=== PATIENT | male | born 1980 | race Caucasian/White ===

== ENCOUNTER 2017-03-24 02:37 | Inpatient (IN) | payer MEDICAID, OTHER ==
[~2017-03-24] VITALS: Ht 180.3 cm; Wt 85.4 kg
[2017-03-24] VITALS (10 sets, daily range): BP systolic 90–133; BP diastolic 59–83; PULSE 91–122; RESP 16–19; TEMP 97.8–101.1; O2SAT 94–100
[~2017-03-24 02:37] MED LIST: ARIP1TAB16 PO; BACL20TA PO; CELE40TA PO; CLON1TAB PO; CLOTR1%T TOPICAL; COLA100C5 PO; DOCU100C15 PO; FLEE5TAB PO; GABA400C5 PO; KETOC2%T TOPICAL; MELA3TAB PO; MULTTAB67 PO; NYSTCRE29 TOPICAL; TRAM50TA PO
[2017-03-24] MEDS ORDERED: PIPERACIL-TAZO 3.375 GM PREMIX 50 ML IV ONE (02:45)
[2017-03-24] MEDS ORDERED: KETOROLAC TROMETHAMINE 30 MG/ML (IVP) VIAL IV PUSH ONE (02:45)
[2017-03-24] MEDS ORDERED: SODIUM CHLORIDE 0.9% FLUSH 10 ML FLUSH IVF PRN (02:45)
[2017-03-24] MEDS ORDERED: SODIUM CHLOR 0.9% 1000 ML INJ 1,000 ML IV ONE ×2 (02:45→06:15)
[2017-03-24 03:04] LABS: AUTOMATED NEUTROPHIL # 13.3 TH/MM3 (1.8-7.7); BASOPHIL % 0.2 % (0.0-2.0); EOSINOPHIL % 0.2 % (0.0-4.0); HEMATOCRIT 42.8 % (39.0-51.0); LYMPH % 3.6 % (9.0-44.0); LYMPHOCYTE # 0.5 TH/MM3 (1.0-4.8); MEAN CORPUSCULAR HEMOGLOBIN 27.1 PG (27.0-34.0); MEAN CORPUSCULAR HGB CONC 32.7 % (32.0-36.0); MONO % 4.7 % (0.0-8.0); MONOCYTE # 0.7 TH/MM3 (0-0.9); NEUT % 91.3 % (16.0-70.0); PLATELET COUNT 144 TH/MM3 (150-450); RED BLOOD COUNT 5.16 MIL/MM3 (4.50-5.90); RED CELL DISTRIBUTION WIDTH 13.5 % (11.6-17.2); WHITE BLOOD COUNT 14.5 TH/MM3 (4.0-11.0)
[2017-03-24 03:30] LABS: ALKALINE PHOSPHATASE 135 U/L (45-117); TOTAL BILIRUBIN ADULT 0.5 MG/DL (0.2-1.0); TOTAL PROTEIN 6.6 GM/DL (6.4-8.2)
[2017-03-24 03:31] LABS: ALT (GPT) 25 U/L (12-78); AST (GOT) 28 U/L (15-37); BLOOD UREA NITROGEN 14 MG/DL (7-18); CALCIUM 7.7 MG/DL (8.5-10.1); CHLORIDE 105 MEQ/L (98-107); CREATININE 0.64 MG/DL (0.60-1.30); GLOMERULAR FILTRATION RATE 142 ML/MIN (>89); GLUCOSE,RANDOM 100 MG/DL (74-106); SODIUM (NA) 141 MEQ/L (136-145)
[2017-03-24] MEDS ORDERED: TEMA30CA PO (03:33)
[2017-03-24 05:36] LABS: BACTERIA, URINE MANY /hpf; BILIRUBIN, URINE NEG (NEG); BLOOD, URINE LARGE (NEG); GLUCOSE,URINE NEG (NEG); KETONE, URINE TRACE mg/dL (NEG); MUCUS URINE MANY /lpf (OCC); NITRITE,URINE NEG (NEG); PH, URINE 6.5 (5.0-8.5); URINE COLOR RED (YELLW/STRAW); URINE LEUKOCYTE ESTERASE LARGE (NEG); WHITE BLOOD CELL CLUMPS MANY
--- NOTE | 2017-03-24 06:01 | PD ---
HPI . Fever Chief Complaint: Fever Time Seen by Provider: 02:41 Travel History International Travel<30 days: No Contact w/Intl Traveler<30days: No Traveled to known affect area: No History of Present Illness HPI 36-year-old male history of multiple sclerosis, bedbound, with suprapubic catheter, group home notes patient has fever to 103, and cloudy urine. Upon EMS presentation, patient temperature 100.3, however has tachycardia to 130 bpm , patient has a history of baseline tachycardia as well. Patient reportedly had suprapubic catheter changed yesterday PFSH Past Medical History Narrative Medical Past medical history reviewed Anxiety: Yes Depression: Yes Diminished Hearing: No Genitourinary: Yes (chronic uti's, neurogenic bladder) Musculoskeletal: Yes (paraplegic) Neurologic: Yes (multiple sclerosis with paraplegia) Psychiatric: Yes (DEPRESSION) Influenza Vaccination: No Past Surgical History AICD: No Body Medical Devices: SUPRA PUBIC CATH Genitourinary Surgery: Yes (SUPRA PUB CATH PLACEMENT) Joint Replacement: No Pacemaker: No Other Surgery: Yes (debridement of bilat hip ulcers) Social History Alcohol Use: No Tobacco Use: No Substance Use: No Allergies-Medications (Allergen,Severity, Reaction): Coded Allergies: No Known Allergies (Verified Adverse Reaction, Unknown, 03/24/17) Reported Meds & Prescriptions Reported Meds & Active Scripts Active Reported Temazepam 30 Mg Cap 30 Mg PO HS PRN Multiple Vitamin 1 Tab 1 Tab PO DAILY Tramadol (Tramadol HCl) 50 Mg Tab 50 Mg PO Q8H PRN Nystatin-Triamcinolone 100,000-0.1 Unit/Gm Cream 1 Applic TOPICAL HS Clotrimazole Topical (Clotrimazole) 1% Soln 1 Applic TOPICAL BID Gabapentin 400 Mg Cap 400 Cap PO Q6HR Celexa (Citalopram Hydrobromide) 40 Mg Tab 40 Mg PO DAILY Aripiprazole 2 Mg Tab 2 Mg PO DAILY Bisacodyl EC (Bisacodyl) 5 Mg Tabec 10 Mg PO DAILY Clonazepam 1 Mg Tab 1 Mg PO Q12HR PRN Docusate Sodium 100 Mg Cap 100 Mg PO BID Baclofen 20 Mg Tab 40 Mg PO Q6HR Nizoral Topical Shampoo (Ketoconazole) 2% Sham 1 Applic TOPICAL ONCE Apply to scalp Melatonin 3 Mg Tab 3 Mg PO HS Narrative Medication Allergies and medications reviewed Review of Systems General / Constitutional: Positive: Fever Eyes: No: Visual changes HENT: No: Headaches Cardiovascular: No: Chest Pain or Discomfort Respiratory: No: Shortness of Breath Gastrointestinal: No: Abdominal Pain Genitourinary: Positive: Hematuria, Pelvic Pain Musculoskeletal: No: Pain Skin: No Rash Neurologic: No: Weakness Psychiatric: No: Depression Endocrine: No: Polydipsia Hematologic/Lymphatic: No: Easy Bruising Physical Exam Narrative GENERAL: Awake and alert oriented 3 no acute distress. Patient is febrile SKIN: Warm and dry. Color is normal for patient, waxy appearance to extremities chronically no rashes HEAD: Atraumatic. Normocephalic. EYES: Pupils equal and round. No scleral icterus. No injection or drainage. ENT: No nasal bleeding or discharge. Mucous membranes pink and moist. NECK: Trachea midline. No JVD. CARDIOVASCULAR: Tachycardic regular without obvious murmurs rubs or gallops. RESPIRATORY: No accessory muscle use. Clear to auscultation. Breath sounds equal bilaterally. GASTROINTESTINAL: Abdomen soft, non-tender, nondistended. Hepatic and splenic margins not palpable. Suprapubic catheter in place good granulation tissue at stoma MUSCULOSKELETAL: Extremities without clubbing, cyanosis, or edema. No obvious deformities. NEUROLOGICAL: Awake and conversive, patient is bedbound, with minimal movement secondary to profound MS PSYCHIATRIC: Appropriate mood and affect; insight and judgment normal. Data Data Last Documented VS Vital Signs Date Time Temp Pulse Resp B/P (MAP) Pulse Ox O2 Delivery O2 Flow Rate FiO2 03/24/17 03:15 96 Room Air 03/24/17 02:39 98.5 114 17 108/70 (83) Orders Orders Complete Blood Count With Diff (03/24/17 02:42) Comprehensive Metabolic Panel (03/24/17 02:42) Urinalysis - C+S If Indicated (03/24/17 02:42) Ecg Monitoring (03/24/17 02:42) Iv Access Insert/Monitor (03/24/17 02:42) Sodium Chloride 0.9% Flush (Ns Flush) (03/24/17 02:45) Blood Culture (03/24/17 02:42) Electrocardiogram (03/24/17 ) Ketorolac Inj (Toradol Inj) (03/24/17 02:45) Sodium Chlor 0.9% 1000 Ml Inj (Ns 1000 M (03/24/17 02:45) Piperacil-Tazo 3.375 Gm Premix (Zosyn 3. (03/24/17 02:45) Urine Culture (03/24/17 05:20) Vancomycin Inj (Vancomycin Inj) (03/24/17 06:15) Sodium Chlor 0.9% 1000 Ml Inj (Ns 1000 M (03/24/17 06:15) Labs Laboratory Tests Test 03/24/17 02:50 03/24/17 05:20 White Blood Count 14.5 TH/MM3 Red Blood Count 5.16 MIL/MM3 Hemoglobin 14.0 GM/DL Hematocrit 42.8 % Mean Corpuscular Volume 83.0 FL Mean Corpuscular Hemoglobin 27.1 PG Mean Corpuscular Hemoglobin Concent 32.7 % Red Cell Distribution Width 13.5 % Platelet Count 144 TH/MM3 Mean Platelet Volume 8.0 FL Neutrophils (%) (Auto) 91.3 % Lymphocytes (%) (Auto) 3.6 % Monocytes (%) (Auto) 4.7 % Eosinophils (%) (Auto) 0.2 % Basophils (%) (Auto) 0.2 % Neutrophils # (Auto) 13.3 TH/MM3 Lymphocytes # (Auto) 0.5 TH/MM3 Monocytes # (Auto) 0.7 TH/MM3 Eosinophils # (Auto) 0.0 TH/MM3 Basophils # (Auto) 0.0 TH/MM3 CBC Comment DIFF FINAL Differential Comment Blood Urea Nitrogen 14 MG/DL Creatinine 0.64 MG/DL Random Glucose 100 MG/DL Total Protein 6.6 GM/DL Albumin 3.0 GM/DL Calcium Level 7.7 MG/DL Alkaline Phosphatase 135 U/L Aspartate Amino Transf (AST/SGOT) 28 U/L Alanine Aminotransferase (ALT/SGPT) 25 U/L Total Bilirubin 0.5 MG/DL Sodium Level 141 MEQ/L Potassium Level 3.3 MEQ/L Chloride Level 105 MEQ/L Carbon Dioxide Level 31.0 MEQ/L Anion Gap 5 MEQ/L Estimat Glomerular Filtration Rate 142 ML/MIN Urine Color RED Urine Turbidity CLOUDY Urine pH 6.5 Urine Specific [place] 1.017 Urine Protein 100 mg/dL Urine Glucose (UA) NEG mg/dL Urine Ketones TRACE mg/dL Urine Occult Blood LARGE Urine Nitrite NEG Urine Bilirubin NEG Urine Urobilinogen LESS THAN 2.0 MG/DL Urine Leukocyte Esterase LARGE Urine RBC /hpf Urine WBC /hpf Urine WBC Clumps MANY Urine Bacteria MANY /hpf Urine Mucus MANY /lpf Microscopic Urinalysis Comment CULTURE INDICATED MDM Medical Decision Making Medical Screen Exam Complete: Yes Emergency Medical Condition: Yes Medical Record Reviewed: Yes Differential Diagnosis Multiple sclerosis, urinary tract infection, urosepsis Narrative Course At presentation,. Patient pancultured, started on broad-spectrum antibiotics. Antibiotics given. Antipyretics given as well as IV fluids Patient had poor urinary drainage, what in preparation for potential change of suprapubic catheter, 30 cc of saline was removed from balloon with subsequent return of flow of hematuria. After approximately 300 cc of urine, hematuria began resolving. Case d/w Dr Fermin hospitalist service, admitted Diagnosis Primary Impression: Urinary retention Additional Impression: UTI (lower urinary tract infection) Admitting Information Admitting Physician Requests: Admit Condition: Kristofer Rajput MD Mar 24, 2017 06:01
[2017-03-24] MEDS ORDERED: SODIUM CHLORIDE 0.9% FLUSH 10 ML FLUSH IV FLUSH PRN (06:15)
[2017-03-24] MEDS ORDERED: NALOXONE HCL 0.4 MG/ML AMP IV PUSH PRN ×2 (06:15→10:30)
[2017-03-24] MEDS ORDERED: Vancomycin Consult Pharmacy 1 EA OTHER SCH (06:15)
[2017-03-24] MEDS ORDERED: VANCOMYCIN INJ 200 ML IV ONE (06:15)
[2017-03-24] MEDS: SODIUM CHLOR 0.9% 1000 ML INJ 1,000 ML IV SCH ×2 (07:13→15:31)
[2017-03-24] MEDS: SODIUM CHLORIDE 0.9% FLUSH 10 ML FLUSH IV FLUSH SCH ×2 (08:44→21:00)
[2017-03-24] MEDS: PIPERACIL-TAZO 4.5 GM PREMIX 100 ML IV SCH ×3 (08:44→21:01)
[2017-03-24] MEDS: LACTOBACILLUS ACIDOPHILUS 1 GM PACKET PO SCH ×4 (09:32→21:00)
--- NOTE | 2017-03-24 09:39 | EKG ---
Date Performed: 03/24/2017 Time Performed: 02:59:54 PTAGE: 36 years EKG: SINUS TACHYCARDIA NONSPECIFIC T-WAVE ABNORMALITY ABNORMAL RHYTHM ECG PREVIOUS TRACING : 07/12/2014 04.37 DOCTOR: Ajith Mcgregor Interpretating Date/Time 03/24/2017 09:38:28
[2017-03-24] MEDS ORDERED: SENNOSIDES 8.6 MG TAB PO PRN (10:30)
[2017-03-24] MEDS ORDERED: ONDANSETRON HCL 4 MG/2 ML VIAL IVP PRN (10:30)
[2017-03-24] MEDS ORDERED: BISACODYL 10 MG SUPP RECTAL PRN (10:30)
[2017-03-24] MEDS ORDERED: LACTULOSE SYRUP 20 GM/30 ML CUP PO PRN (10:30)
[2017-03-24] MEDS ORDERED: MAGNESIUM HYDROXIDE SUSP 30 ML CUP PO PRN (10:30)
--- NOTE | 2017-03-24 10:39 | HHI.HP ---
HPI Service [facility] Primary Care Physician Chris William MD Admission Diagnosis UTI, Urinary retention Diagnoses: Chief Complaint: Fever. Travel History International Travel<30 Days: No Contact w/Intl Traveler <30 Da: No Traveled to Known Affected Are: No Sepsis Criteria SIRS Criteria (2 or more): Heart rate over 90, WBC > 21915, < 4000 or > 10% bands Sepsis Criteria (SIRS+source): Infect source susp/known Criteria Outcome: Meets SIRS criteria, Meets sepsis criteria History of Present Illness Ms. Edmonds is a 36 year old male with a history of MS who is bedbound and has chronic suprapubic catheter who presents to the ED from halfway with a high fever of 103F and cloudy urine. Patient reportedly had suprapubic catheter changed yesterday (03/23/2017). Patient is not able to give much info. He denies any chest pain, shortness of breath. Patient On arrival, Tmax 100.2F, heart rate 114, Pulse 17, BP 108 to 133 systolic. WBC 14.5. UA shows significant number of WBCs. Patient was started on Vanc and Zosyn. Review of Systems Except as stated in HPI: all other systems reviewed are Neg Past Family Social History Past Medical History Neurogenic bladder Anxiety/Depression Paraplegia Multiple sclerosis Past Surgical History Bilateral hip ulcer debridement Reported Medications Temazepam 30 Mg Cap 30 Mg PO HS PRN Multiple Vitamin 1 Tab 1 Tab PO DAILY Tramadol (Tramadol HCl) 50 Mg Tab 50 Mg PO Q8H PRN Nystatin-Triamcinolone 100,000-0.1 Unit/Gm Cream 1 Applic TOPICAL HS Clotrimazole Topical (Clotrimazole) 1% Soln 1 Applic TOPICAL BID Gabapentin 400 Mg Cap 400 Cap PO Q6HR Celexa (Citalopram Hydrobromide) 40 Mg Tab 40 Mg PO DAILY Aripiprazole 2 Mg Tab 2 Mg PO DAILY Bisacodyl EC (Bisacodyl) 5 Mg Tabec 10 Mg PO DAILY Clonazepam 1 Mg Tab 1 Mg PO Q12HR PRN Docusate Sodium 100 Mg Cap 100 Mg PO BID Baclofen 20 Mg Tab 40 Mg PO Q6HR Nizoral Topical Shampoo (Ketoconazole) 2% Sham 1 Applic TOPICAL ONCE Apply to scalp Melatonin 3 Mg Tab 3 Mg PO HS Allergies: Coded Allergies: No Known Allergies (Verified Adverse Reaction, Unknown, 03/24/17) Family History Patient reports no family history of heart disease or cancer. Social History Alcohol Use: No Tobacco Use: No Substance Use: No Physical Exam Vital Signs Vital Signs Date Time Temp Pulse Resp B/P (MAP) Pulse Ox O2 Delivery O2 Flow Rate FiO2 03/24/17 10:02 100.2 108 17 133/75 (94) 100 Room Air 03/24/17 09:09 100.0 122 16 133/72 (92) 98 Room Air 03/24/17 07:02 91 16 90/59 (69) 98 Room Air 03/24/17 07:00 98.2 92 17 98/65 (76) 100 Room Air 03/24/17 07:00 17 99 Room Air 03/24/17 07:00 16 03/24/17 03:15 96 Room Air 03/24/17 02:39 98.5 114 17 108/70 (83) Physical Exam GENERAL: This is a well-nourished, well-developed patient, in no apparent distress. Somewhat lethargic SKIN: No rashes, ecchymoses or lesions. Warm and dry. HEAD: Atraumatic. Normocephalic. No temporal or scalp tenderness. EYES: Pupils equal round and reactive. No injection or drainage. ENT: Nose without bleeding, purulent drainage or septal hematoma. Airway patent. NECK: Trachea midline. No lymphadenopathy. Supple, nontender, no meningeal signs. CARDIOVASCULAR: Regular rhythm, tachycardic without murmurs, gallops, or rubs. No JVD. RESPIRATORY: Clear to auscultation. Breath sounds equal bilaterally. No wheezes , rales, or rhonchi. GASTROINTESTINAL: Abdomen soft, non-tender, nondistended. No guarding. MUSCULOSKELETAL: Extremities without clubbing, cyanosis. 1+ lower extremity edema. NEUROLOGICAL: Awake and alert. Cranial nerves II through XII intact. No focal neurological deficits. Normal speech. Laboratory Laboratory Tests Test 03/24/17 02:50 03/24/17 05:20 White Blood Count 14.5 Red Blood Count 5.16 Hemoglobin 14.0 Hematocrit 42.8 Mean Corpuscular Volume 83.0 Mean Corpuscular Hemoglobin 27.1 Mean Corpuscular Hemoglobin Concent 32.7 Red Cell Distribution Width 13.5 Platelet Count 144 Mean Platelet Volume 8.0 Neutrophils (%) (Auto) 91.3 Lymphocytes (%) (Auto) 3.6 Monocytes (%) (Auto) 4.7 Eosinophils (%) (Auto) 0.2 Basophils (%) (Auto) 0.2 Neutrophils # (Auto) 13.3 Lymphocytes # (Auto) 0.5 Monocytes # (Auto) 0.7 Eosinophils # (Auto) 0.0 Basophils # (Auto) 0.0 CBC Comment DIFF FINAL Differential Comment Blood Urea Nitrogen 14 Creatinine 0.64 Random Glucose 100 Total Protein 6.6 Albumin 3.0 Calcium Level 7.7 Alkaline Phosphatase 135 Aspartate Amino Transf (AST/SGOT) 28 Alanine Aminotransferase (ALT/SGPT) 25 Total Bilirubin 0.5 Sodium Level 141 Potassium Level 3.3 Chloride Level 105 Carbon Dioxide Level 31.0 Anion Gap 5 Estimat Glomerular Filtration Rate 142 Urine Color RED Urine Turbidity CLOUDY Urine pH 6.5 Urine Specific [place] 1.017 Urine Protein 100 Urine Glucose (UA) NEG Urine Ketones TRACE Urine Occult Blood LARGE Urine Nitrite NEG Urine Bilirubin NEG Urine Urobilinogen LESS THAN 2.0 Urine Leukocyte Esterase LARGE Urine RBC Urine WBC Urine WBC Clumps MANY Urine Bacteria MANY Urine Mucus MANY Microscopic Urinalysis Comment CULTURE INDICATED Date/Time Source Procedure Growth Status 03/24/17 02:50 Blood Peripheral Aerobic Blood Culture Pending Received 03/24/17 02:50 Blood Peripheral Anaerobic Blood Culture Pending Received 03/24/17 05:20 Urine Clean Catch Urine Culture Pending Received Result Diagram: 03/24/17 0250 03/24/17 0250 Caprini VTE Risk Assessment Caprini VTE Risk Assessment: Mod/High Risk (score >= 2) Caprini Risk Assessment Model Point Value = 1 Point Value = 2 Point Value = 3 Point Value = 5 Age 41-60 Minor surgery BMI > 25 kg/m2 Swollen legs Varicose veins or History of unexplained or recurrent spontaneous Oral contraceptives or hormone replacement Sepsis (< 1 month) Serious lung disease, including pneumonia (< 1 month) Abnormal pulmonary function Acute myocardial infarction Congestive heart failure (< 1 month) History of inflammatory bowel disease Medical patient at bed rest Age 61-74 Arthroscopic surgery Major open surgery (> 45 min) Laparoscopic surgery (> 45 min) Malignancy Confined to bed (> 72 hours) Immobilizing plaster cast Central venous access Age >= 75 History of VTE Family history of VTE Factor V Leiden Prothrombin [id number] Lupus anticoagulant Anticardiolipin antibodies Elevated serum homocysteine Heparin-induced thrombocytopenia Other congenital or acquired thrombophilia Stroke (< 1 month) Elective arthroplasty Hip, pelvis, or leg fracture Acute spinal cord injury (< 1 month) Prophylaxis Regimen Total Risk Factor Score Risk Level Prophylaxis Regimen 0-1 Low Early ambulation 2 Moderate Order ONE of the following: *Sequential Compression Device (SCD) *Heparin 5000 units SQ BID 3-4 Higher Order ONE of the following medications: *Heparin 5000 units SQ TID *Enoxaparin/Lovenox 40 mg SQ daily (WT < 150 kg, CrCl > 30 mL/min) *Enoxaparin/Lovenox 30 mg SQ daily (WT < 150 kg, CrCl > 10-29 mL/min) *Enoxaparin/Lovenox 30 mg SQ BID (WT < 150 kg, CrCl > 30 mL/min) AND/OR *Sequential Compression Device (SCD) 5 or more Highest Order ONE of the following medications: *Heparin 5000 units SQ TID (Preferred with Epidurals) *Enoxaparin/Lovenox 40 mg SQ daily (WT < 150 kg, CrCl > 30 mL/min) *Enoxaparin/Lovenox 30 mg SQ daily (WT < 150 kg, CrCl > 10-29 mL/min) *Enoxaparin/Lovenox 30 mg SQ BID (WT < 150 kg, CrCl > 30 mL/min) AND *Sequential Compression Device (SCD) Assessment and Plan Problem List: (1) Sepsis ICD Code: A41.9 - Sepsis, unspecified organism Status: Acute (2) UTI (lower urinary tract infection) ICD Code: N39.0 - Lower urinary tract infectious disease Status: Acute Assessment and Plan Ms. Edmonds is a 36-year-old male with a history of multiple sclerosis, paraplegia, neurogenic bladder who presents from the halfway due to fever and cloudy urine. Initial workup indicates sepsis with urinary tract infection. - Sepsis (tachycardia, WBC 14.5, suspected infection urinary tract) - Complicated Urinary tract infection - Patient is currently on vancomycin and Zosyn. - If he continues to have persistent fever, we'll consider Carbapenem. - Due to his complicated situation including halfway stay, neurogenic bladder, sepsis - we will consult Infectious disease. - Continue NS 100cc/hour. - Will follow C&S. - Paraplegia - Neurogenic bladder - Anxiety/Depression - Neuropathic pain - Continue home medications. Full code. Loree. Physician Certification 2 Midnight Certification Type: Admission for Inpatient Services Order for Inpatient Services The services are ordered in accordance with Medicare regulations or non- Medicare payer requirements, as applicable. In the case of services not specified as inpatient-only, they are appropriately provided as inpatient services in accordance with the 2-midnight benchmark. Estimated LOS (days): 2 days is the estimated time the patient will need to remain in the hospital, assuming treatment plan goals are met and no additional complications. Post-Hospital Plan: Not yet determined Problem Qualifiers (1) Sepsis: Qualified Codes: A41.9 - Sepsis, unspecified organism Josr Anderson DO Mar 24, 2017 10:39
[2017-03-24] MEDS: ACETAMINOPHEN 325 MG TAB PO PRN ×3 (10:50→21:01)
[2017-03-24] MEDS ORDERED: clonazePAM 1 MG TAB PO PRN (13:30)
[2017-03-24] MEDS: VANCOMYCIN 1,500 MG/NS 500 ML IV SCH ×4 (13:49→22:17)
[2017-03-24] MEDS: ENOXAPARIN SODIUM 40 MG/0.4 ML SYRINGE SQ SCH (14:57)
[2017-03-24] MEDS: GABAPENTIN 400 MG CAP PO SCH (16:41)
[2017-03-24] MEDS: BACLOFEN 10 MG TAB PO SCH ×2 (16:41→23:58)
[2017-03-24] MEDS ORDERED: Tobramycin Consult Pharmacy 1 EA OTHER SCH (17:15)
[2017-03-24] MEDS ORDERED: TOBRAMYCIN IV SCH (18:00)
[2017-03-24] MEDS ORDERED: BACLOFEN 20 MG TAB PO SCH (18:00)
[2017-03-24] MEDS ORDERED: SODIUM CHLORIDE 0.9% IV SCH (18:00)
[2017-03-25] VITALS (7 sets, daily range): BP systolic 112–126; BP diastolic 69–80; PULSE 85–117; RESP 17–20; TEMP 97.8–101; O2SAT 94–96
[2017-03-25] MEDS: PIPERACIL-TAZO 4.5 GM PREMIX 100 ML IV SCH ×4 (02:21→20:52)
[2017-03-25] MEDS: ACETAMINOPHEN 325 MG TAB PO PRN ×2 (02:21→07:52)
[2017-03-25] MEDS: BACLOFEN 10 MG TAB PO SCH ×3 (05:42→16:36)
[2017-03-25] MEDS: VANCOMYCIN 1,500 MG/NS 500 ML IV SCH ×2 (06:16)
[2017-03-25] MEDS: CITALOPRAM HYDROBROMIDE 40 MG TAB PO SCH (07:51)
[2017-03-25] MEDS: ARIPiprazole 2 MG TAB PO SCH (07:52)
[2017-03-25] MEDS: GABAPENTIN 400 MG CAP PO SCH ×3 (07:52→16:41)
[2017-03-25] MEDS: SODIUM CHLORIDE 0.9% FLUSH 10 ML FLUSH IV FLUSH SCH ×2 (07:52→20:52)
[2017-03-25] MEDS: LACTOBACILLUS ACIDOPHILUS 1 GM PACKET PO SCH ×4 (07:53→20:51)
[2017-03-25 08:35] LABS: AUTOMATED NEUTROPHIL # 4.5 TH/MM3 (1.8-7.7); BASOPHIL % 0.1 % (0.0-2.0); EOSINOPHIL % 0.4 % (0.0-4.0); HEMATOCRIT 34.4 % (39.0-51.0); HEMOGLOBIN 11.5 GM/DL (13.0-17.0); LYMPH % 9.4 % (9.0-44.0); LYMPHOCYTE # 0.5 TH/MM3 (1.0-4.8); MEAN CELL VOLUME 82.6 FL (80.0-100.0); MEAN CORPUSCULAR HEMOGLOBIN 27.5 PG (27.0-34.0); MEAN CORPUSCULAR HGB CONC 33.3 % (32.0-36.0); MEAN PLATELET VOLUME 8.2 FL (7.0-11.0); MONOCYTE # 0.3 TH/MM3 (0-0.9); NEUT % 84.1 % (16.0-70.0); PLATELET COUNT 92 TH/MM3 (150-450); RED BLOOD COUNT 4.17 MIL/MM3 (4.50-5.90); RED CELL DISTRIBUTION WIDTH 13.9 % (11.6-17.2); WHITE BLOOD COUNT 5.3 TH/MM3 (4.0-11.0)
[2017-03-25 08:55] LABS: BICARBONATE 24.1 MEQ/L (21.0-32.0); CALCIUM 7.5 MG/DL (8.5-10.1); CREATININE 0.52 MG/DL (0.60-1.30)
[2017-03-25 09:44] LABS: BANDS 18 % (0-6); LYMPHOCYTES 8 % (9-44); METAMYELOCYTES 1 % (0-1); MONOCYTES 3 % (0-8); NEUTROPHIL # MANUAL DIFF 4.7 TH/MM3 (1.8-7.7); POLYS (SEG NEUTROPHILS) 70 % (16-70)
[2017-03-25] MEDS: POTASSIUM CHLOR 20 MEQ PREMIX 100 ML IV SCH ×4 (10:54→20:50)
[2017-03-25 10:55] LABS: MAGNESIUM 1.8 MG/DL (1.5-2.5)
[2017-03-25] MEDS: SODIUM CHLOR 0.9% 1000 ML INJ 1,000 ML IV SCH ×2 (12:34→20:52)
[2017-03-25] MEDS ORDERED: PHARMACY ORDERED LAB ONE (13:45)
[2017-03-25] MEDS: ENOXAPARIN SODIUM 40 MG/0.4 ML SYRINGE SQ SCH (14:26)
--- NOTE | 2017-03-25 15:06 | HHI.PR ---
Subjective Remarks Follow up for complicated UTI, cellulitis.Patient states he could not get much sleep last night. He had fever of 101 this morning. Objective Vitals Vital Signs Date Time Temp Pulse Resp B/P (MAP) Pulse Ox O2 Delivery O2 Flow Rate FiO2 03/25/17 12:00 98.5 85 20 121/80 (94) 96 03/25/17 08:00 101.0 104 19 125/80 (95) 96 03/25/17 04:00 97.9 112 17 112/72 (85) 95 03/25/17 00:00 117 03/25/17 00:00 97.8 114 18 114/69 (84) 94 03/24/17 20:00 101.1 111 19 123/69 (87) 94 03/24/17 20:00 117 03/24/17 17:18 18 03/24/17 16:00 98.1 111 18 112/69 (83) 98 I/O 03/24/17 03/24/17 03/24/17 03/25/17 03/25/17 03/25/17 07:00 15:00 23:00 07:00 15:00 23:00 Intake Total 200 ml 3050 ml 715 ml 1605 ml 835 ml Output Total 200 ml 400 ml 1200 ml 1250 ml Balance 0 ml 2650 ml -485 ml 355 ml 835 ml Intake Oral 200 ml 700 ml 240 ml 120 ml IV Total 2350 ml 715 ml 1365 ml 715 ml Output Urine Total 200 ml 400 ml 1200 ml 1250 ml # Voids 0 0 # Bowel Movements 0 0 1 0 Result Diagram: 03/25/1772003/25/1721 Objective Remarks GENERAL: Alert, NAD. SKIN: Warm and dry. HEAD: Normocephalic. EYES: No scleral icterus. No injection or drainage. NECK: Supple, trachea midline. No JVD or lymphadenopathy. CARDIOVASCULAR: Regular rate and rhythm without murmurs, gallops, or rubs. RESPIRATORY: Breath sounds equal bilaterally. No accessory muscle use. GASTROINTESTINAL: Abdomen soft, non-tender, nondistended. MUSCULOSKELETAL: No cyanosis, or edema. Right lower ext with erythematous lesions with one large bullae, no clear demarcation of erythema. BACK: Nontender without obvious deformity. No CVA tenderness. Procedures None. A/P Problem List: (1) Sepsis ICD Code: A41.9 - Sepsis, unspecified organism Status: Acute (2) UTI (lower urinary tract infection) ICD Code: N39.0 - Lower urinary tract infectious disease Status: Acute (3) Cellulitis of right lower extremity ICD Code: L03.115 - Cellulitis of right lower limb (4) Gram-negative bacteremia ICD Code: R78.81 - Bacteremia (5) Hypokalemia ICD Code: E87.6 - Hypokalemia Assessment and Plan Ms. Edmonds is a 36 year old male with a history of MS who is bedbound and has chronic suprapubic catheter who presents to the ED from [facility] with a high fever of 103F and cloudy urine. - Sepsis (tachycardia, WBC 14.5, suspected infection UTI or soft tissue) - Complicated Urinary tract infection - initially suspected. However, Urine cx shows mixed aleyda. - Gram negative bacteremia - Gram positive bacteremia - Right lower extremity cellulitis - Appreciate ID input. - Discussed with Dr. Horton. We will continue Vancomycin and Zosyn. Vanc trough 15-20. - Will get RLE doppler study. - Patient has been afebrile throughout the day except in the AM. Further work up if fever persists. - Hypokalemia - Mg level is 1.8. - Will replace K+ with IV KCL. - Repeat BMP, CBC in the AM. Will consider replacing Mg with IV Mag sulfate as well. - Paraplegia - Neurogenic bladder - Anxiety/Depression - Neuropathic pain - Continue home medications. Full code. Lovenox for DVT prophylaxis. Problem Qualifiers (1) Sepsis: Qualified Codes: A41.9 - Sepsis, unspecified organism Josr Anderson DO Mar 25, 2017 15:05
--- NOTE | 2017-03-25 16:10 | PD.ID.CON ---
History of Present Illness Service ID Consult Requested By Reason for Consult Evaluation and management of sepsis and gram-negative bacteremia. Primary Care Physician Chris William MD Diagnoses: History of Present Illness Mr. Edmonds is a 36-year-old male with past medical history significant for multiple sclerosis who is bedbound with no movement in lower extremity and very minimal if any upper extremity hand movement. Patient has neurogenic bladder and a chronic suprapubic catheter placed by Dr. Hallman replaced recently on March 23, 2017. Patient now presents to the emergency department from [facility] with a fever of 103 Fahrenheit and cloudy urine. Patient denies any cardiopulmonary symptoms. Patient denies any abdominal pain or any other discomfort. On arrival in the emergency department his Tmax 100.2F, heart rate 114, Pulse 17 , BP 108 to 133 systolic. WBC 14.5. UA shows significant number of WBCs. Patient was started on Vanc and Zosyn. Infectious disease is consulted for evaluation and management of sepsis and gram -negative bacteremia. Review of Systems ROS Limitations: Clinical Condition Constitutional: DENIES: Diaphoretic episodes, Fatigue, Fever, Weight gain, Weight loss, Chills, Dizziness, Change in appetite, Night Sweats Endocrine: DENIES: Heat/cold intolerance, Polydipsia, Polyuria, Polyphagia Eyes: DENIES: Blurred vision, Diplopia, Eye inflammation, Eye pain, Vision loss , Photosensitivity, Double Vision Ears, nose, mouth, throat: DENIES: Tinnitus, Hearing loss, Vertigo, Nasal discharge, Oral lesions, Throat pain, Hoarseness, Ear Pain, Running Nose, Epistaxis, Sinus Pain, Toothache, Odynophagia Respiratory: DENIES: Apneas, Cough, Snoring, Wheezing, Hemoptysis, Sputum production, Shortness of breath Cardiovascular: DENIES: Chest pain, Palpitations, Syncope, Dyspnea on Exertion , PND, Lower Extremity Edema, Orthopnea, Claudication Gastrointestinal: DENIES: Abdominal pain, Black stools, Bloody stools, Constipation, Diarrhea, Nausea, Vomiting, Difficulty Swallowing, Anorexia Genitourinary: DENIES: Sexual dysfunction, Urinary frequency, Urinary incontinence, Urgency, Hematuria, Dysuria, Nocturia, Penile Discharge, Testicular Pain, Testicular Swelling Musculoskeletal: DENIES: Joint pain, Muscle aches, Stiffness, Joint Swelling, Back pain, Neck pain Integumentary: DENIES: Abnormal pigmentation, Nail changes, Pruritus, Rash Hematologic/lymphatic: DENIES: Bruising, Lymphadenopathy Immunologic/allergic: DENIES: Eczema, Urticaria Neurologic: DENIES: Abnormal gait, Headache, Localized weakness, Paresthesias, Seizures, Speech Problems, Tremor, Poor Balance Psychiatric: DENIES: Anxiety, Confusion, Mood changes, Depression, Hallucinations, Agitation, Suicidal Ideation, Homicidal Ideation, Delusions Except as stated in HPI: all other systems reviewed are Neg Past Family Social History Allergies: Coded Allergies: No Known Allergies (Verified Allergy, Unknown, 03/24/17) Past Medical History Neurogenic bladder Anxiety/Depression Paraplegia Multiple sclerosis Past Surgical History Bilateral hip ulcer debridement Suprapubic catheter placement Reported Medications Reported Meds & Active Scripts Active Reported Temazepam 30 Mg Cap 30 Mg PO HS PRN Multiple Vitamin 1 Tab 1 Tab PO DAILY Tramadol (Tramadol HCl) 50 Mg Tab 50 Mg PO Q8H PRN Nystatin-Triamcinolone 100,000-0.1 Unit/Gm Cream 1 Applic TOPICAL HS Clotrimazole Topical (Clotrimazole) 1% Soln 1 Applic TOPICAL BID Gabapentin 400 Mg Cap 400 Cap PO Q6HR Celexa (Citalopram Hydrobromide) 40 Mg Tab 40 Mg PO DAILY Aripiprazole 2 Mg Tab 2 Mg PO DAILY Bisacodyl EC (Bisacodyl) 5 Mg Tabec 10 Mg PO DAILY Clonazepam 1 Mg Tab 1 Mg PO Q12HR PRN Docusate Sodium 100 Mg Cap 100 Mg PO BID Baclofen 20 Mg Tab 40 Mg PO Q6HR Nizoral Topical Shampoo (Ketoconazole) 2% Sham 1 Applic TOPICAL ONCE Apply to scalp Melatonin 3 Mg Tab 3 Mg PO HS Active Ordered Medications Current Medications Medications (Trade) Dose Ordered Sig/Leidy Route Start Time Stop Time Status Last Admin Sodium Chloride 1,000 ml @ 100 mls/hr Q10H IV 03/24/17 06:09 03/25/17 12:34 (NS Flush) 2 ml UNSCH PRN IV FLUSH 03/24/17 06:15 (NS Flush) 2 ml BID IV FLUSH 03/24/17 09:00 03/24/17 08:44 Pharmacy Profile Note 0 ml @ 0 mls/hr UNSCH OTHER 03/24/17 06:15 Piperacillin Sod/ Tazobactam Sod 100 ml @ 200 mls/hr Q6H IV 03/24/17 09:00 03/25/17 15:44 (Lactinex Pkt) 1 gm QID PO 03/24/17 09:00 03/25/17 16:41 (Tylenol) 650 mg Q4H PRN PO 03/24/17 10:30 03/25/17 07:52 (Zofran Inj) 4 mg Q6H PRN IVP 03/24/17 10:30 (Narcan Inj) 0.4 mg UNSCH PRN IV PUSH 03/24/17 10:30 (Milk Of Magnesia Liq) 30 ml Q12H PRN PO 03/24/17 10:30 (Senokot) 17.2 mg Q12H PRN PO 03/24/17 10:30 (Dulcolax Supp) 10 mg DAILY PRN RECTAL 03/24/17 10:30 (Lactulose Liq) 30 ml DAILY PRN PO 03/24/17 10:30 (Abilify) 2 mg DAILY PO 03/25/17 09:00 03/25/17 07:52 (CeleXA) 40 mg DAILY PO 03/25/17 09:00 03/25/17 07:51 (KlonoPIN) 1 mg Q12HR PRN PO 03/24/17 13:30 (Restoril) 30 mg HS PRN PO 03/24/17 21:00 (Neurontin) 400 mg TID PO 03/24/17 18:00 03/25/17 16:41 Vancomycin HCl 1500 mg/Sodium Chloride 515 ml @ 257.5 mls/ hr Q8H IV 03/24/17 14:00 Future Hold 03/25/17 06:16 (Lovenox Inj) 40 mg Q24H SQ 03/24/17 14:00 03/25/17 14:26 (Lioresal) 10 mg Q6HR PO 03/24/17 18:00 03/25/17 16:36 Tobramycin Sulfate 120 mg/ Sodium Chloride 103 ml @ 100 mls/hr Q24H IV 03/24/17 18:00 03/24/17 18:15 Potassium Chloride 100 ml @ 50 mls/hr Q2H IV 03/25/17 16:00 03/25/17 19:59 03/25/17 16:42 Family History Reviewed and noncontributory ID problems Social History Resident of a snf. His father lives locally and visits him. Denies any alcohol smoking or illicit drug use. Bedbound paraplegic able to move his upper extremities to some extent. Physical Exam Vital Signs Vital Signs Date Time Temp Pulse Resp B/P (MAP) Pulse Ox O2 Delivery O2 Flow Rate FiO2 03/25/17 12:00 98.5 85 20 121/80 (94) 96 03/25/17 08:00 101.0 104 19 125/80 (95) 96 03/25/17 04:00 97.9 112 17 112/72 (85) 95 03/25/17 00:00 117 03/25/17 00:00 97.8 114 18 114/69 (84) 94 03/24/17 20:00 101.1 111 19 123/69 (87) 94 03/24/17 20:00 117 03/24/17 17:18 18 Physical Exam GENERAL: This is a well-nourished, well-developed patient, in no apparent distress. SKIN: No rashes, ecchymoses or lesions. Cool and dry. HEAD: Atraumatic. Normocephalic. No temporal or scalp tenderness. EYES: Pupils equal round and reactive. Extraocular motions intact. No scleral icterus. No injection or drainage. ENT: Nose without bleeding, purulent drainage or septal hematoma. Throat without erythema, tonsillar hypertrophy or exudate. Uvula midline. Airway patent. NECK: Trachea midline. No JVD or lymphadenopathy. Supple, nontender, no meningeal signs. CARDIOVASCULAR: Regular rate and rhythm without murmurs, gallops, or rubs. RESPIRATORY: Clear to auscultation. Breath sounds equal bilaterally. No wheezes , rales, or rhonchi. GASTROINTESTINAL: Abdomen soft, non-tender, nondistended. Suprapubic site with erythema minimal. Cath attached to doe. MUSCULOSKELETAL: Right LE with erythema and blisters. RLE appears more swollen than left LE. NEUROLOGICAL: Awake and alert. Paraplegic. Minimal hand movts bilaterally. Psych cooperative IV line sites with no e.o infection. Laboratory Laboratory Tests Test 03/25/17 07:21 03/25/17 12:30 White Blood Count 5.3 Red Blood Count 4.17 Hemoglobin 11.5 Hematocrit 34.4 Mean Corpuscular Volume 82.6 Mean Corpuscular Hemoglobin 27.5 Mean Corpuscular Hemoglobin Concent 33.3 Red Cell Distribution Width 13.9 Platelet Count 92 Mean Platelet Volume 8.2 Neutrophils (%) (Auto) 84.1 Lymphocytes (%) (Auto) 9.4 Monocytes (%) (Auto) 6.0 Eosinophils (%) (Auto) 0.4 Basophils (%) (Auto) 0.1 Neutrophils # (Auto) 4.5 Lymphocytes # (Auto) 0.5 Monocytes # (Auto) 0.3 Eosinophils # (Auto) 0.0 Basophils # (Auto) 0.0 CBC Comment AUTO DIFF Differential Total Cells Counted 100 Neutrophils % (Manual) 70 Band Neutrophils % 18 Lymphocytes % 8 Monocytes % 3 Neutrophils # (Manual) 4.7 Metamyelocytes 1 Differential Comment FINAL DIFF MANUAL Platelet Estimate LOW Platelet Morphology Comment NORMAL Blood Urea Nitrogen 6 Creatinine 0.52 Random Glucose 90 Calcium Level 7.5 Magnesium Level 1.8 Sodium Level 142 Potassium Level 2.7 Chloride Level 109 Carbon Dioxide Level 24.1 Anion Gap 9 Estimat Glomerular Filtration Rate 181 Vancomycin Level Trough 33.3 Date/Time Source Procedure Growth Status 03/25/17 12:20 Blood Peripheral Aerobic Blood Culture Pending Received 03/25/17 12:20 Blood Peripheral Anaerobic Blood Culture Pending Received 03/24/17 05:20 Urine Clean Catch Urine Culture - Final 50-100,000 CFU/ML MIXED ANGEL... Complete Result Diagram: 03/25/17 0721 03/25/17 0721 Imaging None Assessment and Plan Assessment and Plan Sepsis present on admission Source likely UTI and bacteremia Gram-positive bacteremia strep milleri Gram-negative bacteremia likely secondary to UTI. Right lower extremity cellulitis with blisters likely erysipelas. Suprapubic catheter changed on March 23, 2017. Neurogenic bladder Recommendations: Continue Zosyn IV Continue vancomycin IV target trough 15-20(right lower extremity cellulitis) Discontinue tobramycin IV Repeat blood cultures 2 Follow cultures Follow clinically d/w : If fevers persist overnight assess RLE and consider Doppler to r/ o DVT. Also if fevers persist will consider CT A/P to r/o pyelo or hydronephrosis. Consider CXR if fevers persist as patient is bed bound and eating meals in bed ? aspiration PNA. Critical thinking. Helen Horton MD Mar 25, 2017 16:10
[2017-03-26] VITALS (9 sets, daily range): BP systolic 109–123; BP diastolic 73–81; PULSE 85–97; RESP 16–20; TEMP 96.8–100; O2SAT 94–95
[2017-03-26] MEDS: BACLOFEN 10 MG TAB PO SCH ×4 (01:04→22:09)
[2017-03-26] MEDS: TEMAZEPAM 15 MG CAP PO PRN (01:13)
[2017-03-26] MEDS: PIPERACIL-TAZO 4.5 GM PREMIX 100 ML IV SCH ×3 (03:13→15:26)
[2017-03-26 08:49] LABS: AUTOMATED NEUTROPHIL # 3.9 TH/MM3 (1.8-7.7); BASOPHIL % 0.2 % (0.0-2.0); EOSINOPHIL # 0.1 TH/MM3 (0-0.4); HEMATOCRIT 37.4 % (39.0-51.0); HEMOGLOBIN 12.6 GM/DL (13.0-17.0); LYMPH % 20.8 % (9.0-44.0); LYMPHOCYTE # 1.2 TH/MM3 (1.0-4.8); MEAN CELL VOLUME 82.7 FL (80.0-100.0); MEAN CORPUSCULAR HEMOGLOBIN 27.8 PG (27.0-34.0); MEAN CORPUSCULAR HGB CONC 33.7 % (32.0-36.0); MEAN PLATELET VOLUME 8.2 FL (7.0-11.0); MONOCYTE # 0.5 TH/MM3 (0-0.9); PLATELET COUNT 123 TH/MM3 (150-450); RED BLOOD COUNT 4.53 MIL/MM3 (4.50-5.90); RED CELL DISTRIBUTION WIDTH 14.1 % (11.6-17.2); WHITE BLOOD COUNT 5.8 TH/MM3 (4.0-11.0)
[2017-03-26] MEDS: SODIUM CHLOR 0.9% 1000 ML INJ 1,000 ML IV SCH ×2 (08:52→22:15)
[2017-03-26] MEDS: ARIPiprazole 2 MG TAB PO SCH (08:53)
[2017-03-26] MEDS: SODIUM CHLORIDE 0.9% FLUSH 10 ML FLUSH IV FLUSH SCH ×2 (08:53→21:00)
[2017-03-26] MEDS: CITALOPRAM HYDROBROMIDE 40 MG TAB PO SCH (08:53)
[2017-03-26] MEDS: LACTOBACILLUS ACIDOPHILUS 1 GM PACKET PO SCH ×3 (08:54→22:09)
[2017-03-26] MEDS: GABAPENTIN 400 MG CAP PO SCH ×3 (08:54→22:07)
[2017-03-26 09:22] LABS: BICARBONATE 24.1 MEQ/L (21.0-32.0); CREATININE 0.62 MG/DL (0.60-1.30)
[2017-03-26] MEDS ORDERED: VANCOMYCIN INJ 1,250 MG in SODIUM CHLOR 0.9% 250 ML INJ 250 ML IV SCH (11:00)
[2017-03-26] MEDS: ENOXAPARIN SODIUM 40 MG/0.4 ML SYRINGE SQ SCH (15:25)
[2017-03-26] MEDS ORDERED: ASP: Path resistant to other antimicrobials, culture proven PRN (17:15)
[2017-03-26] MEDS ORDERED: MISCELLANEOUS PHARMACY INFORMATION XX PRN (17:15)
[2017-03-26] MEDS ORDERED: MEROPENEM INJ 500 MG in SODIUM CHLORIDE 0.9% INJ 100 ML IV SCH (18:00)
--- NOTE | 2017-03-26 18:03 | HHI.IDPN ---
Subjective Subjective Remarks Mr. Edmonds is a 36-year-old male with past medical history significant for multiple sclerosis who is bedbound with no movement in lower extremity and very minimal if any upper extremity hand movement. Patient has neurogenic bladder and a chronic suprapubic catheter placed by Dr. Hallman replaced recently on March 23, 2017. Patient now presents to the emergency department from [facility] with a fever of 103 Fahrenheit and cloudy urine. Patient denies any cardiopulmonary symptoms. Patient denies any abdominal pain or any other discomfort. On arrival in the emergency department his Tmax 100.2F, heart rate 114, Pulse 17 , BP 108 to 133 systolic. WBC 14.5. UA shows significant number of WBCs. Patient was started on Vanc and Zosyn. Infectious disease is consulted for evaluation and management of sepsis and gram -negative bacteremia. Overnight events reviewed Low grade fevers persist. Bed bound. No rash No diarrhea Antibiotics Zosyn IV Vanco IV Lines Line sites with no e.o infection. Past Medical History Neurogenic bladder Anxiety/Depression Paraplegia Multiple sclerosis Bilateral hip ulcer debridement Suprapubic catheter placement Allergies: Coded Allergies: No Known Allergies (Verified Allergy, Unknown, 03/24/17) Objective . Vital Signs Date Time Temp Pulse Resp B/P (MAP) Pulse Ox O2 Delivery O2 Flow Rate FiO2 03/26/17 16:00 99.2 92 19 109/77 (88) 95 03/26/17 12:00 98.5 93 20 121/78 (92) 95 03/26/17 10:42 85 03/26/17 08:00 98.4 89 20 121/81 (94) 95 03/26/17 04:07 96 03/26/17 04:00 98.8 94 16 115/73 (87) 95 03/26/17 00:17 96 03/26/17 00:00 100.0 97 18 123/78 (93) 94 03/25/17 20:00 98.6 102 18 126/80 (95) 96 03/25/17 19:58 97 03/26/17 03/26/17 03/27/17 15:00 23:00 07:00 Intake Total 240 ml Output Total 600 ml Balance -360 ml Intake Oral 240 ml Output Urine Total 600 ml . Laboratory Tests Test 03/25/17 07:21 03/26/17 07:47 White Blood Count 5.3 TH/MM3 5.8 TH/MM3 Red Blood Count 4.17 MIL/MM3 4.53 MIL/MM3 Hemoglobin 11.5 GM/DL 12.6 GM/DL Hematocrit 34.4 % 37.4 % Mean Corpuscular Volume 82.6 FL 82.7 FL Mean Corpuscular Hemoglobin 27.5 PG 27.8 PG Mean Corpuscular Hemoglobin Concent 33.3 % 33.7 % Red Cell Distribution Width 13.9 % 14.1 % Platelet Count 92 TH/MM3 123 TH/MM3 Mean Platelet Volume 8.2 FL 8.2 FL Neutrophils (%) (Auto) 84.1 % 68.0 % Lymphocytes (%) (Auto) 9.4 % 20.8 % Monocytes (%) (Auto) 6.0 % 9.0 % Eosinophils (%) (Auto) 0.4 % 2.0 % Basophils (%) (Auto) 0.1 % 0.2 % Neutrophils # (Auto) 4.5 TH/MM3 3.9 TH/MM3 Lymphocytes # (Auto) 0.5 TH/MM3 1.2 TH/MM3 Monocytes # (Auto) 0.3 TH/MM3 0.5 TH/MM3 Eosinophils # (Auto) 0.0 TH/MM3 0.1 TH/MM3 Basophils # (Auto) 0.0 TH/MM3 0.0 TH/MM3 CBC Comment AUTO DIFF DIFF FINAL Differential Total Cells Counted 100 Neutrophils % (Manual) 70 % Band Neutrophils % 18 % Lymphocytes % 8 % Monocytes % 3 % Neutrophils # (Manual) 4.7 TH/MM3 Metamyelocytes 1 % Differential Comment FINAL DIFF MANUAL Platelet Estimate LOW Platelet Morphology Comment NORMAL Laboratory Tests Test 03/25/17 07:21 03/26/17 07:41 Blood Urea Nitrogen 6 MG/DL 8 MG/DL Creatinine 0.52 MG/DL 0.62 MG/DL Random Glucose 90 MG/DL 89 MG/DL Calcium Level 7.5 MG/DL 8.0 MG/DL Magnesium Level 1.8 MG/DL Sodium Level 142 MEQ/L 141 MEQ/L Potassium Level 2.7 MEQ/L 3.1 MEQ/L Chloride Level 109 MEQ/L 107 MEQ/L Carbon Dioxide Level 24.1 MEQ/L 24.1 MEQ/L Anion Gap 9 MEQ/L 10 MEQ/L Estimat Glomerular Filtration Rate 181 ML/MIN 148 ML/MIN Microbiology Date/Time Source Procedure Growth Status 03/25/17 12:20 Blood Peripheral Aerobic Blood Culture - Preliminary NO GROWTH IN 1 DAY Resulted 03/25/17 12:20 Blood Peripheral Anaerobic Blood Culture - Preliminary NO GROWTH IN 1 DAY Resulted 03/25/17 12:15 Blood Peripheral Aerobic Blood Culture - Preliminary NO GROWTH IN 1 DAY Resulted 03/25/17 12:15 Blood Peripheral Anaerobic Blood Culture - Preliminary NO GROWTH IN 1 DAY Resulted 03/24/17 02:50 Blood Peripheral Aerobic Blood Culture - Preliminary Strep Anginosus/Milleri Resulted 03/24/17 02:50 Anaerobic Blood Culture - Preliminary Streptococcus Anginosus Group Gram Negative Raphael Resulted 03/24/17 02:40 Blood Peripheral Aerobic Blood Culture - Preliminary NO GROWTH IN 2 DAYS Resulted 03/24/17 02:40 Anaerobic Blood Culture - Preliminary Citrobacter Freundii Proteus Mirabilis Resulted 03/24/17 05:20 Urine Clean Catch Urine Culture - Final 50-100,000 CFU/ML MIXED ANGEL... Complete Imaging None Physical Exam GENERAL: This is a well-nourished, well-developed patient, in no apparent distress. SKIN: No rashes, ecchymoses or lesions. Cool and dry. HEAD: Atraumatic. Normocephalic. No temporal or scalp tenderness. EYES: Pupils equal round and reactive. Extraocular motions intact. No scleral icterus. No injection or drainage. ENT: Nose without bleeding, purulent drainage or septal hematoma. Throat without erythema, tonsillar hypertrophy or exudate. Uvula midline. Airway patent. NECK: Trachea midline. No JVD or lymphadenopathy. Supple, nontender, no meningeal signs. CARDIOVASCULAR: Regular rate and rhythm without murmurs, gallops, or rubs. RESPIRATORY: Clear to auscultation. Breath sounds equal bilaterally. No wheezes , rales, or rhonchi. GASTROINTESTINAL: Abdomen soft, non-tender, nondistended. Suprapubic site with erythema minimal. Cath attached to doe. MUSCULOSKELETAL: Right LE with erythema and blisters. RLE appears more swollen than left LE. NEUROLOGICAL: Awake and alert. Paraplegic. Minimal hand movts bilaterally. Psych cooperative IV line sites with no e.o infection. Assessment & Plan Remarks Sepsis present on admission Source likely UTI and bacteremia Gram-positive bacteremia strep milleri Gram-negative bacteremia likely secondary to UTI. Right lower extremity cellulitis with blisters likely erysipelas. Suprapubic catheter changed on March 23, 2017. Neurogenic bladder Recommendations: DC Zosyn IV DC vancomycin IV ? drug fever Start Meropenem IV (ASP: ESBL on culture prelim) Start Zyvox IV (for RLE cellulitis) Follow cultures Follow clinically If fevers persist despite antibiotics will consider CT A/P to r/o pyelo or hydronephrosis. Consider CXR if fevers persist as patient is bed bound and eating meals in bed ? aspiration PNA. to cover for me. If fevers persist or any new culture information please call her to see patient. Helen Horton MD Mar 26, 2017 18:03
--- NOTE | 2017-03-26 18:37 | RADRPT ---
EXAM DATE/TIME: 03/26/2017 18:20 [facility] COMPARISON: CHEST SINGLE AP, July 12, 2014, 10:16. INDICATIONS : Short of breath. MEDICAL HISTORY : None. SURGICAL HISTORY : None. ENCOUNTER: Subsequent ACUITY: 2 days PAIN SCORE: 0/10 LOCATION: Bilateral chest FINDINGS: A single view of the chest demonstrates the lungs to be symmetrically aerated without evidence of mas s, infiltrate or effusion. The cardiomediastinal contours are unremarkable. Osseous structures are intact. CONCLUSION: No acute disease. Benedicto Andrade Jr., MD on March 26, 2017 at 18:35 Board Certified Radiologist. This report was verified electronically.
--- NOTE | 2017-03-26 19:46 | HHI.PR ---
Subjective Remarks Follow up for complicated UTI, cellulitis, bacteremia. Mr. Edmonds appears to be more alert today. He had intermittent fever. No chest pain, shortness of breath. Objective Vitals Vital Signs Date Time Temp Pulse Resp B/P (MAP) Pulse Ox O2 Delivery O2 Flow Rate FiO2 03/26/17 16:00 99.2 92 19 109/77 (88) 95 03/26/17 12:00 98.5 93 20 121/78 (92) 95 03/26/17 10:42 85 03/26/17 08:00 98.4 89 20 121/81 (94) 95 03/26/17 04:07 96 03/26/17 04:00 98.8 94 16 115/73 (87) 95 03/26/17 00:17 96 03/26/17 00:00 100.0 97 18 123/78 (93) 94 03/25/17 20:00 98.6 102 18 126/80 (95) 96 03/25/17 19:58 97 I/O 03/25/17 03/25/17 03/25/17 03/26/17 03/26/17 03/26/17 07:00 15:00 23:00 07:00 15:00 23:00 Intake Total 1605 ml 835 ml 960 ml 1750 ml 240 ml 1200 ml Output Total 1250 ml 2800 ml 2000 ml 600 ml 2800 ml Balance 355 ml 835 ml -1840 ml -250 ml -360 ml -1600 ml Intake Oral 240 ml 120 ml 760 ml 240 ml 1200 ml IV Total 1365 ml 715 ml 200 ml 1750 ml Output Urine Total 1250 ml 2800 ml 2000 ml 600 ml 2800 ml # Bowel Movements 0 0 0 Result Diagram: 03/26/17 0747 03/26/17 0741 Imaging Last Impressions Chest X-Ray 03/26/17 0000 Signed Impressions: Service Date/Time: Sunday, March 26, 2017 18:20 - CONCLUSION: No acute disease. Benedicto Andrade Jr., MD Objective Remarks GENERAL: Alert, NAD. SKIN: Warm and dry. HEAD: Normocephalic. EYES: No scleral icterus. No injection or drainage. NECK: Supple, trachea midline. No JVD or lymphadenopathy. CARDIOVASCULAR: Regular rate and rhythm without murmurs, gallops, or rubs. RESPIRATORY: Breath sounds equal bilaterally. No accessory muscle use. GASTROINTESTINAL: Abdomen soft, non-tender, nondistended. MUSCULOSKELETAL: No cyanosis, or edema. Right lower ext with erythematous lesions with one large bullae, no clear demarcation of erythema. No increased swelling of RLE compared LLE. BACK: Nontender without obvious deformity. No CVA tenderness. Procedures None. A/P Problem List: (1) Sepsis ICD Code: A41.9 - Sepsis, unspecified organism Status: Acute (2) UTI (lower urinary tract infection) ICD Code: N39.0 - Lower urinary tract infectious disease Status: Acute (3) Cellulitis of right lower extremity ICD Code: L03.115 - Cellulitis of right lower limb (4) Gram-negative bacteremia ICD Code: R78.81 - Bacteremia (5) Hypokalemia ICD Code: E87.6 - Hypokalemia Assessment and Plan Ms. Edmonds is a 36 year old male with a history of MS who is bedbound and has chronic suprapubic catheter who presents to the ED from [facility] with a high fever of 103F and cloudy urine. - Sepsis (tachycardia, WBC 14.5, suspected infection UTI or soft tissue) - Complicated Urinary tract infection - initially suspected. However, Urine cx shows mixed aleyda. - Gram negative bacteremia - Gram positive bacteremia - Right lower extremity cellulitis - Appreciate ID input. - Abx changed from Vanc Zosyn to Linezolid and Meropenem due to RLE cellulitis and ESBL bacteremia. - RLE exam does not indicate DVT. We will hold of ultrasound for now. - CXR negative for any acute finding. - Hypokalemia - Mg level is 1.8. - K+ improved from 2.7 to 3.1 after replacement. - Will give one gram of Mag sulfate and replace with PO KCL - Paraplegia - Neurogenic bladder - Anxiety/Depression - Neuropathic pain - Continue home medications. Full code. Lovenox for DVT prophylaxis. Problem Qualifiers (1) Sepsis: Qualified Codes: A41.9 - Sepsis, unspecified organism Josr Anderson DO Mar 26, 2017 19:46
[2017-03-26] MEDS ORDERED: MAGNESIUM SULFATE 1 GM PREMIX 100 ML IV ONE (20:00)
[2017-03-26] MEDS: MEROPENEM INJ 500 MG in SODIUM CHLORIDE 0.9% INJ 100 ML IV SCH (22:08)
[2017-03-26] MEDS: POTASSIUM CHLORIDE 20 MEQ CONTROLLED RELEASE TAB PO SCH (22:08)
[2017-03-26] MEDS: LINEZOLID 600 MG PREMIX 300 ML IV SCH (22:09)
--- NOTE | 2017-03-26 22:15 | RADRPT ---
EXAM DATE/TIME: 03/26/2017 21:21 [facility] COMPARISON: CHEST SINGLE AP, March 26, 2017, 18:20. US KIDNEY/RENAL/BLADDER, July 13, 2014, 8:19. INDICATIONS : Abnormal lab values. MEDICAL HISTORY : Multiple sclerosis. Paraplegia. Bladder stones. Depression. SURGICAL HISTORY : Suprapub catheter. Debridement of bilateral hip ulcers. Neurogenic bladder. ENCOUNTER: Subsequent ACUITY: 1 day PAIN SCORE: 2/10 LOCATION: Bilateral flank MEASUREMENTS: RIGHT KIDNEY: 11.1 x 4.5 x 5.7 cm LEFT KIDNEY: 10.7 x 4.2 x 6.0 cm FINDINGS: RIGHT KIDNEY: The kidney is echogenic. No hydronephrosis. An echogenic focus with shadowing measuring 8 mm. LEFT KIDNEY: The kidney is echogenic. No hydronephrosis. BLADDER: Bladder is totally decompressed and not seen. CONCLUSION: 1. Sonographic findings suggesting underlying medical renal disease. No obstruction. 2. Decompressed urinary bladder. Benedicto Andrade Jr., MD on March 26, 2017 at 22:11 Board Certified Radiologist. This report was verified electronically.
[2017-03-27] VITALS (10 sets, daily range): BP systolic 119–123; BP diastolic 71–84; PULSE 78–91; RESP 16–20; TEMP 96.2–98.6; O2SAT 94–96
[2017-03-27] MEDS: TEMAZEPAM 15 MG CAP PO PRN (00:48)
[2017-03-27] MEDS: MEROPENEM INJ 500 MG in SODIUM CHLORIDE 0.9% INJ 100 ML IV SCH ×3 (05:13→19:30)
[2017-03-27] MEDS: BACLOFEN 10 MG TAB PO SCH (06:36)
[2017-03-27] MEDS: LINEZOLID 600 MG PREMIX 300 ML IV SCH ×2 (07:43→17:32)
[2017-03-27] MEDS: SODIUM CHLORIDE 0.9% FLUSH 10 ML FLUSH IV FLUSH SCH ×2 (09:00→19:30)
[2017-03-27] MEDS: LACTOBACILLUS ACIDOPHILUS 1 GM PACKET PO SCH ×4 (12:21→19:47)
[2017-03-27] MEDS: GABAPENTIN 400 MG CAP PO SCH ×3 (12:22→17:32)
[2017-03-27] MEDS: POTASSIUM CHLORIDE 20 MEQ CONTROLLED RELEASE TAB PO SCH ×2 (12:22→19:34)
[2017-03-27] MEDS: SODIUM CHLOR 0.9% 1000 ML INJ 1,000 ML IV SCH ×2 (12:23→23:52)
[2017-03-27] MEDS: BACLOFEN 20 MG TAB PO SCH ×3 (12:28→23:52)
[2017-03-27] MEDS: ARIPiprazole 2 MG TAB PO SCH (12:28)
[2017-03-27] MEDS: ENOXAPARIN SODIUM 40 MG/0.4 ML SYRINGE SQ SCH (15:38)
--- NOTE | 2017-03-27 16:40 | HHI.PR ---
Subjective Remarks Follow up for complicated UTI, cellulitis, bacteremia. Patient is doing well. No fever, chills. Wants to get baclofen dosage increased. Tolerating diet well although he does not have much appetite for breakfast. Objective Vitals Vital Signs Date Time Temp Pulse Resp B/P (MAP) Pulse Ox O2 Delivery O2 Flow Rate FiO2 03/27/17 12:00 96.7 80 18 121/78 (92) 95 03/27/17 08:00 98.6 78 16 119/80 (93) 96 03/27/17 04:00 96.2 85 20 121/84 (96) 96 03/27/17 03:40 80 03/27/17 00:13 89 03/27/17 00:00 96.5 87 20 123/84 (97) 94 03/26/17 20:00 96.8 85 20 113/76 (88) 95 I/O 03/26/17 03/26/17 03/26/17 03/27/17 03/27/17 03/27/17 07:00 15:00 23:00 07:00 15:00 23:00 Intake Total 1750 ml 240 ml 2300 ml 740 ml Output Total 2000 ml 600 ml 2800 ml 1650 ml Balance -250 ml -360 ml -500 ml -910 ml Intake Oral 240 ml 1200 ml 240 ml IV Total 1750 ml 1100 ml 500 ml Output Urine Total 2000 ml 600 ml 2800 ml 1650 ml # Bowel Movements 0 1 Result Diagram: 03/26/17 0747 03/26/17 0741 Imaging Last Impressions Renal Ultrasound 03/26/17 0000 Signed Impressions: Service Date/Time: Sunday, March 26, 2017 21:21 - CONCLUSION: 1. Sonographic findings suggesting underlying medical renal disease. No obstruction. 2. Decompressed urinary bladder. Benedicto Andrade Jr., MD Chest X-Ray 03/26/17 0000 Signed Impressions: Service Date/Time: Sunday, March 26, 2017 18:20 - CONCLUSION: No acute disease. Benedicto Andrade Jr., MD Objective Remarks GENERAL: Alert, NAD. SKIN: Warm and dry. HEAD: Normocephalic. EYES: No scleral icterus. No injection or drainage. NECK: Supple, trachea midline. No JVD or lymphadenopathy. CARDIOVASCULAR: Regular rate and rhythm without murmurs, gallops, or rubs. RESPIRATORY: Breath sounds equal bilaterally. No accessory muscle use. GASTROINTESTINAL: Abdomen soft, non-tender, nondistended. MUSCULOSKELETAL: No cyanosis, or edema. Right lower ext with erythematous lesions with one large bullae, no clear demarcation of erythema. Right leg erythema is improved. BACK: Nontender without obvious deformity. No CVA tenderness. Procedures None. A/P Problem List: (1) Sepsis ICD Code: A41.9 - Sepsis, unspecified organism Status: Acute (2) UTI (lower urinary tract infection) ICD Code: N39.0 - Lower urinary tract infectious disease Status: Acute (3) Cellulitis of right lower extremity ICD Code: L03.115 - Cellulitis of right lower limb (4) Gram-negative bacteremia ICD Code: R78.81 - Bacteremia (5) Hypokalemia ICD Code: E87.6 - Hypokalemia Assessment and Plan Ms. Edmonds is a 36 year old male with a history of MS who is bedbound and has chronic suprapubic catheter who presents to the ED from [facility] with a high fever of 103F and cloudy urine. - Sepsis (tachycardia, WBC 14.5, suspected infection UTI or soft tissue) - Complicated Urinary tract infection - initially suspected. However, Urine cx shows mixed aleyda. - Gram negative bacteremia - Gram positive bacteremia - Right lower extremity cellulitis - Appreciate ID input. - Abx changed from Vanc Zosyn to Linezolid and Meropenem due to RLE cellulitis and ESBL bacteremia. - CXR negative for any acute finding. - Hypokalemia - Mg level is 1.8. - K+ improved from 2.7 to 3.1 after replacement. - s/p one gram of Mag sulfate and replace with PO KCL - Paraplegia - Neurogenic bladder - Anxiety/Depression - Neuropathic pain - Continue home medications. - Increase baclofen from 10mg to 20mg QID. Full code. Lovenox for DVT prophylaxis. Problem Qualifiers (1) Sepsis: Qualified Codes: A41.9 - Sepsis, unspecified organism Josr Anderson DO Mar 27, 2017 4:40 pm
[2017-03-27] MEDS ORDERED: PHARMACY ORDERED LAB ONE (22:45)
[2017-03-28 01:00] VITALS: BP 115/73; PULSE 87; RESP 18; TEMP 98.2; O2SAT 93
[2017-03-28 04:00] VITALS: BP 113/75; PULSE 80; PULSE 82; RESP 16; TEMP 97.8; O2SAT 96
[2017-03-28] MEDS: MEROPENEM INJ 500 MG in SODIUM CHLORIDE 0.9% INJ 100 ML IV SCH ×3 (04:04→19:25)
[2017-03-28] MEDS: BACLOFEN 20 MG TAB PO SCH ×3 (05:56→17:51)
[2017-03-28] MEDS: LINEZOLID 600 MG PREMIX 300 ML IV SCH ×2 (05:56→17:52)
[2017-03-28 08:00] VITALS: BP 121/74; PULSE 81; RESP 17; TEMP 95.9; O2SAT 96
[2017-03-28] MEDS: SODIUM CHLORIDE 0.9% FLUSH 10 ML FLUSH IV FLUSH SCH ×2 (08:36→19:25)
[2017-03-28] MEDS: POTASSIUM CHLORIDE 20 MEQ CONTROLLED RELEASE TAB PO SCH ×2 (08:37→19:25)
[2017-03-28] MEDS: LACTOBACILLUS ACIDOPHILUS 1 GM PACKET PO SCH ×4 (08:37→19:26)
[2017-03-28] MEDS: GABAPENTIN 400 MG CAP PO SCH ×4 (08:37→19:26)
[2017-03-28] MEDS: ARIPiprazole 2 MG TAB PO SCH (08:37)
--- NOTE | 2017-03-28 09:18 | HHI.PR ---
Subjective Remarks Follow up for complicated UTI, cellulitis, bacteremia. Patient is currently doing well. Denies any chest pain, shortness of breath, fever or chills. He is requesting to adjust his medications to reflect his home medications. Objective Vitals Vital Signs Date Time Temp Pulse Resp B/P (MAP) Pulse Ox O2 Delivery O2 Flow Rate FiO2 03/28/17 08:00 95.9 81 17 121/74 (90) 96 03/28/17 04:00 80 03/28/17 04:00 97.8 82 16 113/75 (88) 96 03/28/17 01:00 98.2 87 18 115/73 (87) 93 03/27/17 23:45 91 03/27/17 20:00 97.9 84 17 121/77 (92) 94 03/27/17 19:48 78 03/27/17 16:00 97.0 81 17 123/71 (88) 95 03/27/17 12:00 96.7 80 18 121/78 (92) 95 I/O 03/27/17 03/27/17 03/27/17 03/28/17 03/28/17 03/28/17 07:00 15:00 23:00 07:00 15:00 23:00 Intake Total 740 ml 100 ml 760 ml 1220 ml Output Total 1650 ml 2050 ml 1850 ml Balance -910 ml 100 ml -1290 ml -630 ml Intake Oral 240 ml 360 ml 120 ml IV Total 500 ml 100 ml 400 ml 1100 ml Output Urine Total 1650 ml 2050 ml 1850 ml # Bowel Movements 1 0 0 Result Diagram: 03/26/17 0747 03/26/17 0741 Imaging Last Impressions Renal Ultrasound 03/26/17 0000 Signed Impressions: Service Date/Time: Sunday, March 26, 2017 21:21 - CONCLUSION: 1. Sonographic findings suggesting underlying medical renal disease. No obstruction. 2. Decompressed urinary bladder. Benedicto Andrade Jr., MD Chest X-Ray 03/26/17 0000 Signed Impressions: Service Date/Time: Sunday, March 26, 2017 18:20 - CONCLUSION: No acute disease. Benedicto Andrade Jr., MD Objective Remarks GENERAL: Alert, NAD. SKIN: Warm and dry. HEAD: Normocephalic. EYES: No scleral icterus. No injection or drainage. NECK: Supple, trachea midline. No JVD or lymphadenopathy. CARDIOVASCULAR: Regular rate and rhythm without murmurs, gallops, or rubs. RESPIRATORY: Breath sounds equal bilaterally. No accessory muscle use. GASTROINTESTINAL: Abdomen soft, non-tender, nondistended. MUSCULOSKELETAL: No cyanosis, or edema. Right lower ext with erythematous lesions with one large bullae, no clear demarcation of erythema. Right leg erythema is improved. BACK: Nontender without obvious deformity. No CVA tenderness. Procedures None. A/P Problem List: (1) Sepsis ICD Code: A41.9 - Sepsis, unspecified organism Status: Acute (2) UTI (lower urinary tract infection) ICD Code: N39.0 - Lower urinary tract infectious disease Status: Acute (3) Cellulitis of right lower extremity ICD Code: L03.115 - Cellulitis of right lower limb (4) Gram-negative bacteremia ICD Code: R78.81 - Bacteremia (5) Hypokalemia ICD Code: E87.6 - Hypokalemia Assessment and Plan Ms. Edmonds is a 36 year old male with a history of MS who is bedbound and has chronic suprapubic catheter who presents to the ED from [facility] with a high fever of 103F and cloudy urine. - Sepsis (tachycardia, WBC 14.5, suspected infection UTI or soft tissue) - Complicated Urinary tract infection - initially suspected. However, Urine cx shows mixed aleyda. - Polymicrobial bacteremia - Right lower extremity cellulitis - Appreciate ID input. - Abx changed from Vanc Zosyn to Linezolid and Meropenem due to RLE cellulitis and ESBL bacteremia. - CXR negative for any acute finding. - Hypokalemia - Mg level is 1.8. - K+ improved from 2.7 to 3.1 after replacement. - s/p one gram of Mag sulfate and replace with PO KCL - We'll obtain CBC and BMP in the morning. - Paraplegia - Neurogenic bladder - Anxiety/Depression - Neuropathic pain - Continue home medications. - Increased baclofen from 10mg to 20mg QID. - Increase gabapentin 400 mg 3 times a day to 400 mg 4 times a day. Full code. Lovenox for DVT prophylaxis. Problem Qualifiers (1) Sepsis: Qualified Codes: A41.9 - Sepsis, unspecified organism Josr Anderson DO Mar 28, 2017 9:18 am
[2017-03-28] MEDS ORDERED: NALOXONE HCL 0.4 MG/ML AMP IV PUSH PRN (09:30)
[2017-03-28] MEDS ORDERED: BISACODYL 10 MG SUPP RECTAL PRN (09:30)
[2017-03-28] MEDS ORDERED: MAGNESIUM HYDROXIDE SUSP 30 ML CUP PO PRN (09:30)
[2017-03-28] MEDS ORDERED: LACTULOSE SYRUP 20 GM/30 ML CUP PO PRN (09:30)
[2017-03-28] MEDS ORDERED: SENNOSIDES 8.6 MG TAB PO PRN (09:30)
[2017-03-28 12:00] VITALS: BP 128/79; PULSE 83; RESP 18; TEMP 96.3; O2SAT 98
[2017-03-28] MEDS: SODIUM CHLOR 0.9% 1000 ML INJ 1,000 ML IV SCH (12:05)
[2017-03-28 16:00] VITALS: BP 117/74; PULSE 85; RESP 21; TEMP 98.4; O2SAT 96
[2017-03-28] MEDS: ENOXAPARIN SODIUM 40 MG/0.4 ML SYRINGE SQ SCH (17:52)
[2017-03-28] MEDS: DOCUSATE SODIUM 100 MG CAP PO SCH (19:25)
[2017-03-28 20:00] VITALS: BP 117/74; PULSE 84; PULSE 87; RESP 18; TEMP 97.9; O2SAT 93
[2017-03-29] VITALS: BP 116/76; PULSE 82; PULSE 87; RESP 18; TEMP 98.7; O2SAT 94
[2017-03-29] MEDS: BACLOFEN 20 MG TAB PO SCH ×4 (00:09→17:46)
[2017-03-29] MEDS: SODIUM CHLOR 0.9% 1000 ML INJ 1,000 ML IV SCH ×2 (03:08→15:30)
[2017-03-29] MEDS: MEROPENEM INJ 500 MG in SODIUM CHLORIDE 0.9% INJ 100 ML IV SCH (03:08)
[2017-03-29 04:00] VITALS: BP 120/77; PULSE 83; PULSE 84; RESP 17; TEMP 98.9; O2SAT 96
[2017-03-29] MEDS: LINEZOLID 600 MG PREMIX 300 ML IV SCH (05:13)
[2017-03-29 08:00] VITALS: BP 116/59; PULSE 80; RESP 18; TEMP 98.1; O2SAT 93
[2017-03-29 08:18] LABS: AUTOMATED NEUTROPHIL # 3.3 TH/MM3 (1.8-7.7); BASOPHIL % 0.3 % (0.0-2.0); EOSINOPHIL # 0.3 TH/MM3 (0-0.4); EOSINOPHIL % 4.1 % (0.0-4.0); HEMATOCRIT 37.6 % (39.0-51.0); HEMOGLOBIN 12.2 GM/DL (13.0-17.0); LYMPH % 35.9 % (9.0-44.0); LYMPHOCYTE # 2.4 TH/MM3 (1.0-4.8); MEAN CELL VOLUME 82.7 FL (80.0-100.0); MEAN CORPUSCULAR HGB CONC 32.6 % (32.0-36.0); MONOCYTE # 0.8 TH/MM3 (0-0.9); NEUT % 48.7 % (16.0-70.0); PLATELET COUNT 155 TH/MM3 (150-450); RED BLOOD COUNT 4.54 MIL/MM3 (4.50-5.90); RED CELL DISTRIBUTION WIDTH 13.9 % (11.6-17.2); WHITE BLOOD COUNT 6.8 TH/MM3 (4.0-11.0)
[2017-03-29 08:56] LABS: CALCIUM 8.2 MG/DL (8.5-10.1); CREATININE 0.55 MG/DL (0.60-1.30)
[2017-03-29 08:57] LABS: BICARBONATE 28.7 MEQ/L (21.0-32.0)
[2017-03-29] MEDS: LACTOBACILLUS ACIDOPHILUS 1 GM PACKET PO SCH ×4 (09:00→20:35)
[2017-03-29] MEDS: ARIPiprazole 2 MG TAB PO SCH (09:24)
[2017-03-29] MEDS: GABAPENTIN 400 MG CAP PO SCH ×4 (09:24→20:35)
[2017-03-29] MEDS: POTASSIUM CHLORIDE 20 MEQ CONTROLLED RELEASE TAB PO SCH (09:25)
[2017-03-29] MEDS: DOCUSATE SODIUM 100 MG CAP PO SCH ×2 (09:25→20:35)
[2017-03-29] MEDS: SODIUM CHLORIDE 0.9% FLUSH 10 ML FLUSH IV FLUSH SCH ×2 (09:26→20:35)
[2017-03-29] MEDS ORDERED: EPIN1INJ21 IV PUSH (11:42)
[2017-03-29] MEDS ORDERED: SOLU250I IV PUSH (11:42)
[2017-03-29] MEDS ORDERED: EPIN1INJ21 SQ (11:42)
[2017-03-29] MEDS ORDERED: INVA1INJ IV (11:42)
[2017-03-29] MEDS ORDERED: ZYVO600T PO (11:42)
--- NOTE | 2017-03-29 11:49 | HHI.IDPN ---
Subjective Subjective Remarks Mr. Edmonds is a 36-year-old male with past medical history significant for multiple sclerosis who is bedbound with no movement in lower extremity and very minimal if any upper extremity hand movement. Patient has neurogenic bladder and a chronic suprapubic catheter placed by Dr. Hallman replaced recently on March 23, 2017. Patient now presents to the emergency department [facility] with a fever of 103 Fahrenheit and cloudy urine. Patient denies any cardiopulmonary symptoms. Patient denies any abdominal pain or any other discomfort. On arrival in the emergency department his Tmax 100.2F, heart rate 114, Pulse 17 , BP 108 to 133 systolic. WBC 14.5. UA shows significant number of WBCs. Patient was started on Vanc and Zosyn. Infectious disease is consulted for evaluation and management of sepsis and gram -negative bacteremia. Overnight events reviewed Bed bound. No fevers No rash No diarrhea Antibiotics Meropenem IV and Zyvox IV Lines Line sites with no e.o infection. Past Medical History Neurogenic bladder Anxiety/Depression Paraplegia Multiple sclerosis Bilateral hip ulcer debridement Suprapubic catheter placement Allergies: Coded Allergies: No Known Allergies (Verified Allergy, Unknown, 03/24/17) Objective . Vital Signs Date Time Temp Pulse Resp B/P (MAP) Pulse Ox O2 Delivery O2 Flow Rate FiO2 03/29/17 08:00 98.1 80 18 116/59 (78) 93 03/29/17 04:00 83 03/29/17 04:00 98.9 84 17 120/77 (91) 96 03/29/17 00:00 87 03/29/17 00:00 98.7 82 18 116/76 (89) 94 03/28/17 20:00 97.9 84 18 117/74 (88) 93 03/28/17 20:00 87 03/28/17 16:00 98.4 85 21 117/74 (88) 96 03/28/17 12:00 96.3 83 18 128/79 (95) 98 03/29/17 03/29/17 03/30/17 15:00 23:00 07:00 Output Total 550 ml Balance -550 ml Output Urine Total 550 ml . d/w Micro: cannot rule out ESBL recommend treating as ESBL. Microbiology Date/Time Source Procedure Growth Status 03/25/17 12:20 Blood Peripheral Aerobic Blood Culture - Preliminary NO GROWTH IN 4 DAYS Resulted 03/25/17 12:20 Blood Peripheral Anaerobic Blood Culture - Preliminary NO GROWTH IN 4 DAYS Resulted 03/24/17 05:20 Urine Clean Catch Urine Culture - Final 50-100,000 CFU/ML MIXED ANGEL... Complete Laboratory Tests Test 03/29/17 06:27 White Blood Count 6.8 TH/MM3 Red Blood Count 4.54 MIL/MM3 Hemoglobin 12.2 GM/DL Hematocrit 37.6 % Mean Corpuscular Volume 82.7 FL Mean Corpuscular Hemoglobin 27.0 PG Mean Corpuscular Hemoglobin Concent 32.6 % Red Cell Distribution Width 13.9 % Platelet Count 155 TH/MM3 Mean Platelet Volume 8.0 FL Neutrophils (%) (Auto) 48.7 % Lymphocytes (%) (Auto) 35.9 % Monocytes (%) (Auto) 11.0 % Eosinophils (%) (Auto) 4.1 % Basophils (%) (Auto) 0.3 % Neutrophils # (Auto) 3.3 TH/MM3 Lymphocytes # (Auto) 2.4 TH/MM3 Monocytes # (Auto) 0.8 TH/MM3 Eosinophils # (Auto) 0.3 TH/MM3 Basophils # (Auto) 0.0 TH/MM3 CBC Comment DIFF FINAL Differential Comment Laboratory Tests Test 03/29/17 06:27 Blood Urea Nitrogen 5 MG/DL Creatinine 0.55 MG/DL Random Glucose 109 MG/DL Calcium Level 8.2 MG/DL Sodium Level 143 MEQ/L Potassium Level 3.3 MEQ/L Chloride Level 108 MEQ/L Carbon Dioxide Level 28.7 MEQ/L Anion Gap 6 MEQ/L Estimat Glomerular Filtration Rate 170 ML/MIN Imaging None Physical Exam GENERAL: This is a well-nourished, well-developed patient, in no apparent distress. SKIN: No rashes, ecchymoses or lesions. Cool and dry. HEAD: Atraumatic. Normocephalic. No temporal or scalp tenderness. EYES: Pupils equal round and reactive. Extraocular motions intact. No scleral icterus. No injection or drainage. ENT: Nose without bleeding, purulent drainage or septal hematoma. Throat without erythema, tonsillar hypertrophy or exudate. Uvula midline. Airway patent. NECK: Trachea midline. No JVD or lymphadenopathy. Supple, nontender, no meningeal signs. CARDIOVASCULAR: Regular rate and rhythm without murmurs, gallops, or rubs. RESPIRATORY: Clear to auscultation. Breath sounds equal bilaterally. No wheezes , rales, or rhonchi. GASTROINTESTINAL: Abdomen soft, non-tender, nondistended. Suprapubic site with erythema minimal. Cath attached to doe. MUSCULOSKELETAL: Right LE with erythema and blisters. RLE appears more swollen than left LE. NEUROLOGICAL: Awake and alert. Paraplegic. Minimal hand movts bilaterally. Psych cooperative IV line sites with no e.o infection. Assessment & Plan Remarks Sepsis present on admission Source likely UTI and bacteremia Strep Milleri bacteremia Proteus mirabilis and Morganella bacteremia: transient likely from recent procedures. Right lower extremity cellulitis with blisters likely erysipelas. Suprapubic catheter changed on March 23, 2017. Neurogenic bladder Recommendations: DC Meropenem IV Start Ertapenem IV (ASP: ESBL on culture per [facility] treat as ESBL due to resistance pattern) Continue Zyvox change to oral (for RLE cellulitis) Follow cultures Follow clinically US negative CXR negative. d.w Dr.Ahmad no [facility]: will need IV ertapenem stop date(04/09/17) and Zyvox oral 4 more days. d.w patient above plan Midline order placed. Infusion orders in chart. Will sign off please call back if any change in clinical condition or questions or any problems with above discharge plan. Helen Horton MD Mar 29, 2017 11:49
--- NOTE | 2017-03-29 11:54 | HHI.FF ---
Infusion Therapy Location of Infusion Therapy: [facility] Infusion Therapy Order Patient Information Appointment Date: Mar 29, 2017 Patient Weight 85.4 kg Diagnosis: Diagnosis ESBL Proteus bacteremia Morganella bacteremia Strep bacteremia. Coded Allergies: No Known Allergies (Verified Allergy, Unknown, 03/24/17) Administer Medication Ertapenem 1 gram IV q 24 hours Start Treatment: Mar 29, 2017 Stop Treatment: Apr 10, 2017 Additional Information Additional Medications Zyvox 600 mg po q12 hrs (stop date: 04/02/2017) Venous access: Other (Midline) Additional Instructions [x] Peripheral flush and dressing changes per protocol [x] Implanted port and central multicut line operator: * Implanted port: 10 ml Normal Saline followed by 5 ml Heparin 100 units/ml Heparin flush after each use and monthly to maintain. [] May leave port accessed during therapy. [] May leave peripheral site accessed for duration of therapy. [x] If patient has SOB or respiratory distress, check oxygen saturation. If less than 90% or clinical signs of respiratory distress, administer oxygen at 2 L/min. via nasal cannula and notify physician. [x] Anaphylaxis/Reaction orders: * Stop infusion. * Keep IV line open with saline flush. * Notify physician. * Monitor vital signs every 15 minutes until symptoms resolve. * Check Oxygen saturation; Oxygen at 2 L/min. via nasal cannula if less than 90% or clinical signs of respiratory distress. * Administer diphenhydramine (Benadryl) 25 mg IV STAT, (unless patient has received as pre-med). May repeat once, if necessary. * Solu-Cortef 250 mg IVP over 30-60 seconds, use 100 mg vials for each dissolution. * Epinephrine (1mg/1 ml) 0.3 mg subcutaneously or IVP now with any signs of respiratory distress. * Check with physician for new additional pre-med orders if patient is re- challenged or re-treated. [x] May remove PICC line when treatment complete, after confirming with Physician. [x] If the patient is admitted to the hospital, the ED, or transferred via [facility] , complete transfer form including medication reconciliation order sheet. Laboratory Tests Weekly Labs: CBC w/diff, Creatinine, CRP, LFT's (Hepatic function test) Additional Information Please draw weekly labs, Call with abnormals, change in clinical condition or problems to: or covering ID Physician Follow up appt: Follow up with PCP Follow up with other MDs as planned. Counseling: Counseled about medication side effects Helen Horton MD Mar 29, 2017 11:54
[2017-03-29 12:00] VITALS: BP 118/75; PULSE 78; RESP 16; TEMP 95.7; O2SAT 95
[2017-03-29] MEDS ORDERED: ERTAPENEM SODIUM 1000 MG VIAL IV SCH (14:00)
[2017-03-29] MEDS: ENOXAPARIN SODIUM 40 MG/0.4 ML SYRINGE SQ SCH (14:00)
[2017-03-29] MEDS ORDERED: ERTAPENEM 1,000 MG/NS 100 ML IV SCH ×2 (14:00)
[2017-03-29] MEDS ORDERED: BACL20TA PO (14:17)
[2017-03-29] MEDS ORDERED: CLON1TAB PO (14:17)
[2017-03-29] MEDS ORDERED: POTA1TAB4 PO (14:31)
--- NOTE | 2017-03-29 14:32 | HHI.PR ---
Subjective Remarks Follow up for suspected complicated UTI, cellulitis, bacteremia. Patient is doing well. No fever, chills. Repeat blood cultures negative. Objective Vitals Vital Signs Date Time Temp Pulse Resp B/P (MAP) Pulse Ox O2 Delivery O2 Flow Rate FiO2 03/29/17 08:00 98.1 80 18 116/59 (78) 93 03/29/17 04:00 83 03/29/17 04:00 98.9 84 17 120/77 (91) 96 03/29/17 00:00 87 03/29/17 00:00 98.7 82 18 116/76 (89) 94 03/28/17 20:00 97.9 84 18 117/74 (88) 93 03/28/17 20:00 87 03/28/17 16:00 98.4 85 21 117/74 (88) 96 I/O 03/28/17 03/28/17 03/28/17 03/29/17 03/29/17 03/29/17 07:00 15:00 23:00 07:00 15:00 23:00 Intake Total 1220 ml 1100 ml 1090 ml Output Total 1850 ml 1900 ml 1400 ml 550 ml Balance -630 ml 1100 ml -810 ml -1400 ml -550 ml Intake Oral 120 ml 690 ml IV Total 1100 ml 1100 ml 400 ml Output Urine Total 1850 ml 1900 ml 1400 ml 550 ml # Bowel Movements 0 0 1 Result Diagram: 03/29/17 0627 03/29/17 0627 Imaging Last Impressions Renal Ultrasound 03/26/17 0000 Signed Impressions: Service Date/Time: Sunday, March 26, 2017 21:21 - CONCLUSION: 1. Sonographic findings suggesting underlying medical renal disease. No obstruction. 2. Decompressed urinary bladder. Benedicto Andrade Jr., MD Chest X-Ray 03/26/17 0000 Signed Impressions: Service Date/Time: Sunday, March 26, 2017 18:20 - CONCLUSION: No acute disease. Benedicto Andrade Jr., MD Objective Remarks GENERAL: Alert, NAD. SKIN: Warm and dry. HEAD: Normocephalic. EYES: No scleral icterus. No injection or drainage. NECK: Supple, trachea midline. No JVD or lymphadenopathy. CARDIOVASCULAR: Regular rate and rhythm without murmurs, gallops, or rubs. RESPIRATORY: Breath sounds equal bilaterally. No accessory muscle use. GASTROINTESTINAL: Abdomen soft, non-tender, nondistended. MUSCULOSKELETAL: No cyanosis, or edema. Right lower ext with erythematous lesions with one large bullae, no clear demarcation of erythema. Right leg erythema is improved. BACK: Nontender without obvious deformity. No CVA tenderness. Procedures None. A/P Problem List: (1) Sepsis ICD Code: A41.9 - Sepsis, unspecified organism Status: Acute (2) UTI (lower urinary tract infection) ICD Code: N39.0 - Lower urinary tract infectious disease Status: Acute (3) Cellulitis of right lower extremity ICD Code: L03.115 - Cellulitis of right lower limb (4) Gram-negative bacteremia ICD Code: R78.81 - Bacteremia (5) Hypokalemia ICD Code: E87.6 - Hypokalemia Assessment and Plan Ms. Edmonds is a 36 year old male with a history of MS who is bedbound and has chronic suprapubic catheter who [facility] with a high fever of 103F and cloudy urine. - Sepsis (tachycardia, WBC 14.5, suspected infection UTI or soft tissue) - Complicated Urinary tract infection - initially suspected. However, Urine cx shows mixed aleyda. - Polymicrobial bacteremia - Right lower extremity cellulitis - Appreciate ID input. - Abx changed from Vanc Zosyn to Linezolid and Meropenem due to RLE cellulitis and ESBL bacteremia. - CXR negative for any acute finding. - On discharge ID recommends Ertapenem 1g IV Q24hrs until 04/10/2017 and Zyvox PO Q12hrs until 04/02/2017. - Hypokalemia - Mg level is 1.8. - K+ improved from 2.7 to 3.1 after replacement. - s/p one gram of Mag sulfate and replace with PO KCL - K+ is still slightly low. 3.3. Will continue PO KCL for 2-3 days. - Paraplegia - Neurogenic bladder - Anxiety/Depression - Neuropathic pain - Continue home medications. - Increased baclofen from 10mg to 20mg QID. - Increase gabapentin 400 mg 3 times a day to 400 mg 4 times a day. Full code. Lovenox for DVT prophylaxis. Problem Qualifiers (1) Sepsis: Qualified Codes: A41.9 - Sepsis, unspecified organism Josr Anderson DO Mar 29, 2017 2:32 pm
[2017-03-29 16:00] VITALS: BP 141/83; PULSE 79; RESP 18; TEMP 97.4; O2SAT 96
[2017-03-29] MEDS ORDERED: LINEZOLID 600 MG TAB PO SCH (21:00)
--- NOTE | 2017-03-29 22:36 | HHI.DS ---
Discharge Summary Admission Date Mar 24, 2017 at 06:12 Discharge Date: Mar 29, 2017 Admitting Diagnosis UTI, Urinary retention (1) Sepsis ICD Code: A41.9 - Sepsis, unspecified organism Status: Acute (2) UTI (lower urinary tract infection) ICD Code: N39.0 - Lower urinary tract infectious disease Status: Acute (3) Cellulitis of right lower extremity ICD Code: L03.115 - Cellulitis of right lower limb (4) Gram-negative bacteremia ICD Code: R78.81 - Bacteremia (5) Hypokalemia ICD Code: E87.6 - Hypokalemia Procedures None. Brief History - From Admission Ms. Edmonds is a 36 year old male with a history of MS who is bedbound and has chronic suprapubic catheter who presents to the ED from group home with a high fever of 103F and cloudy urine. Patient reportedly had suprapubic catheter changed yesterday (03/23/2017). Patient is not able to give much info. He denies any chest pain, shortness of breath. Patient On arrival, Tmax 100.2F, heart rate 114, Pulse 17, BP 108 to 133 systolic. WBC 14.5. UA shows significant number of WBCs. Patient was started on Vanc and Zosyn. CBC/BMP: 03/29/17 0627 03/29/17 0627 Significant Findings Laboratory Tests Test 03/29/17 06:27 Hemoglobin 12.2 GM/DL (13.0-17.0) Hematocrit 37.6 % (39.0-51.0) Monocytes (%) (Auto) 11.0 % (0.0-8.0) Eosinophils (%) (Auto) 4.1 % (0.0-4.0) Blood Urea Nitrogen 5 MG/DL (7-18) Creatinine 0.55 MG/DL (0.60-1.30) Random Glucose 109 MG/DL (74-106) Calcium Level 8.2 MG/DL (8.5-10.1) Potassium Level 3.3 MEQ/L (3.5-5.1) Chloride Level 108 MEQ/L (98-107) Imaging Last Impressions Renal Ultrasound 03/26/17 0000 Signed Impressions: Service Date/Time: Sunday, March 26, 2017 21:21 - CONCLUSION: 1. Sonographic findings suggesting underlying medical renal disease. No obstruction. 2. Decompressed urinary bladder. Benedicto Andrade Jr., MD Chest X-Ray 03/26/17 0000 Signed Impressions: Service Date/Time: Sunday, March 26, 2017 18:20 - CONCLUSION: No acute disease. Benedicto Andrade Jr., MD PE at Discharge GENERAL: Alert, NAD. SKIN: Warm and dry. HEAD: Normocephalic. EYES: No scleral icterus. No injection or drainage. NECK: Supple, trachea midline. No JVD or lymphadenopathy. CARDIOVASCULAR: Regular rate and rhythm without murmurs, gallops, or rubs. RESPIRATORY: Breath sounds equal bilaterally. No accessory muscle use. GASTROINTESTINAL: Abdomen soft, non-tender, nondistended. MUSCULOSKELETAL: No cyanosis, or edema. Right lower ext with erythematous lesions with one large bullae, no clear demarcation of erythema. Right leg erythema is improved. BACK: Nontender without obvious deformity. No CVA tenderness. Pt update on day of discharge Patient is doing well. No fever, chills. Hospital Course Ms. Edmonds is a 36 year old male with a history of MS who is bedbound and has chronic suprapubic catheter who presents to the ED from group home with a high fever of 103F and cloudy urine. - Sepsis (tachycardia, WBC 14.5, suspected infection UTI or soft tissue) - Complicated Urinary tract infection - initially suspected. However, Urine cx shows mixed aleyda. - Polymicrobial bacteremia - Right lower extremity cellulitis - Appreciate ID input. - Abx changed from Vanc Zosyn to Linezolid and Meropenem due to RLE cellulitis and ESBL bacteremia. - CXR negative for any acute finding. - On discharge ID recommends Ertapenem 1g IV Q24hrs until 04/10/2017 and Zyvox PO Q12hrs until 04/02/2017. - Hypokalemia - Mg level is 1.8. - K+ improved from 2.7 to 3.1 after replacement. - s/p one gram of Mag sulfate and replace with PO KCL - K+ is still slightly low. 3.3. Will continue PO KCL for 2-3 days. - Paraplegia - Neurogenic bladder - Anxiety/Depression - Neuropathic pain - Continue home medications. - Increased baclofen from 10mg to 20mg QID. - Increase gabapentin 400 mg 3 times a day to 400 mg 4 times a day. Full code. Lovenox for DVT prophylaxis. Pt Condition on Discharge: Good Discharge Disposition: Discharge to SNF Discharge Time: > 30 minutes Discharge Instructions DIET: Follow Instructions for: As Tolerated, No Restrictions Activities you can perform: Regular-No Restrictions New Medications: Epinephrine Inj (Epinephrine Inj) 1 Mg/Ml (1 Ml) Inj 0.3 MG IV PUSH ONCE PRN for ALLERGIC REACTION, #1 VIAL Epinephrine Inj (Epinephrine Inj) 1 Mg/Ml (1 Ml) Inj 0.3 MG SQ ONCE PRN for ALLERGIC REACTION, #1 VIAL Give with any signs of respiratory distress. Ertapenem Inj (Invanz Inj) 1 Gm Addvial 1 GM IV Q24H for Infection for 11 Days, INJECTION 0 Refills ADMINISTER IN 100ML NS Hydrocortisone Inj (Solu-Cortef Inj) 250 Mg/2 Ml Inj 250 MG IV PUSH ONCE PRN for ALLERGIC REACTION, #1 VIAL 0 Refills Give over 30-60 seconds. Linezolid (Zyvox) 600 Mg Tab 600 MG PO Q12H for Infection for 4 Days, #8 TAB 0 Refills Potassium Chloride ER (K-Tab) 20 Meq Tab 20 MEQ PO BID for Electrolyte Replacement, #4 TAB 0 Refills Baclofen (Baclofen) 20 Mg Tab 20 MG PO Q6HR for muscle spasm, #30 TAB Continued Medications: Aripiprazole (Aripiprazole) 2 Mg Tab 2 MG PO DAILY, TAB [address] (Bisacodyl EC) 5 Mg Tabec 10 MG PO DAILY for Constipation, TAB 0 Refills Clonazepam (Clonazepam) 1 Mg Tab 1 MG PO Q12HR PRN for ANXIETY, #20 TAB 0 Refills (This prescription has been renewed) Clotrimazole Topical (Clotrimazole Topical) 1% Soln 1 APPLIC TOPICAL BID for Fungal Infection, #10 ML 0 Refills Docusate Sodium (Docusate Sodium) 100 Mg Cap 100 MG PO BID for Prevent Constipation, #60 CAP 0 Refills Gabapentin (Gabapentin) 400 Mg Cap 400 CAP PO Q6HR, #30 CAP 0 Refills Ketoconazole Topical Shampoo (Nizoral Topical Shampoo) 2% Sham 1 APPLIC TOPICAL ONCE for Fungal Infection, BOTTLE 0 Refills Apply to scalp Melatonin (Melatonin) 3 Mg Tab 3 MG PO HS for Insomnia Multiple Vitamin (Multiple Vitamin) 1 Tab 1 TAB PO DAILY for Nutritional Supplement, TAB 0 Refills Nystatin-Triamcinolone (Nystatin-Triamcinolone) 100,000-0.1 Unit/Gm Cream 1 APPLIC TOPICAL HS for Infection, #15 GM 0 Refills Discontinued Medications: Baclofen (Baclofen) 20 Mg Tab 40 MG PO Q6HR for Muscle Spasm, TAB 0 Refills Citalopram (Celexa) 40 Mg Tab 40 MG PO DAILY for Control Depression, #30 TAB 0 Refills Tramadol (Tramadol) 50 Mg Tab 50 MG PO Q8H PRN for PAIN, TAB 0 Refills Josr Anderson DO Mar 29, 2017 22:36
== END 2017-03-29 20:45 | DRG 872 ==
LOC: NEPC 02:37 → NEDA 06:12 → N07A 14:13
PROVIDERS: ADMIT Hospitalist; ATTEND Hospitalist
DX: A41.4 Sepsis due to anaerobes (principal); G82.20 Paraplegia, unspecified; L03.115 Cellulitis of right lower limb; G35 Multiple sclerosis; N31.9 Neuromuscular dysfunction of bladder, unspecified; B96.89 Other specified bacterial agents as the cause of diseases classified elsewhere; E87.6 Hypokalemia; A46 Erysipelas; F41.9 Anxiety disorder, unspecified; F32.9 Major depressive disorder, single episode, unspecified; Z16.35 Resistance to multiple antimicrobial drugs; Z74.01 Bed confinement status; Z93.59 Other cystostomy status
CPT/HCPCS: 71045; 76775; 80048; 80053; 80202; 81001; 83605; 83735; 85007; 85025; 85027; 87040; 87077; 87086; 87186; 87205; 93005; 96365; 96366; 96375; J1335; J1650; J1885; J2020; J2185; J2543; J3260; J3370; J3475; J3480; J7030; J7040; J7050

== ENCOUNTER 2017-12-29 07:11 | Inpatient (IN) ==
[2017-12-29] MEDS ORDERED: Acetaminophen 650 MG Supp RECTAL ONE (07:13)
[2017-12-29] MEDS: Sod Chloride 0.9% Inj 1,000 ML IV.SIG SCH ×3 (07:51→10:16)
--- NOTE | 2017-12-29 07:51 | ED ---
HPI General Chief Complaint: Fever Stated Complaint: Medical Time Seen by Provider: 12/29/17 07:13 Source: EMS and old records reviewed Mode of arrival: EMS Limitations: altered mental status History of Present Illness HPI Narrative: This is a 36-year-old DNR long-term patient who is bedbound secondary to multiple sclerosis who presents to us with a 7-hour history of fever and foul looking urine. MD complaint: Reports fever Onset (ago): hour(s) (about [place]) Maximum Temperature: 103 F Relieving factors: nothing Exacerbating factors: nothing Treatments prior to arrival fever: Reports none Related Data Home Medications Medication Instructions Recorded Confirmed baclofen 40 mg PO BID 12/29/17 12/29/17 bisacodyl [Dulcolax (bisacodyl)] 5 mg PO DAILY 12/29/17 12/29/17 bisacodyl [Dulcolax (bisacodyl)] 10 mg ND DAILY PRN 12/29/17 12/29/17 citalopram [Celexa] 20 mg PO DAILY 12/29/17 12/29/17 clonazepam 1 mg PO BID 12/29/17 12/29/17 docusate sodium [Colace] 100 mg PO BID 12/29/17 12/29/17 gabapentin 400 mg PO Q6H 12/29/17 12/29/17 ketoconazole 1 applic TOPICAL MOTH 12/29/17 12/29/17 loratadine 10 mg PO DAILY 12/29/17 12/29/17 melatonin 3 mg PO HS 12/29/17 12/29/17 oxybutynin chloride 5 mg PO BID 12/29/17 12/29/17 triamcinolone acetonide 1 applic TOPICAL DAILY 12/29/17 12/29/17 Allergies Allergy/AdvReac Type Severity Reaction Status Date / Time No Known Allergies Allergy Verified 12/29/17 07:20 Review of Systems ROS Unobtainable ROS Unobtainable: unobtainable due to mental status PMFSH Medical History Medical History Anxiety (Acute) Blind (Acute) Hepatitis C (Acute) Insomnia (Acute) Multiple sclerosis (Acute) Paraplegia (Acute) Social History Social History Substance History: Unable to Obtain Smoking Status: Unknown if ever smoked How Often Do You Have a Drink Containing Alcohol: Unable to Obtain Recent Travel in [place] within the Last 8 Weeks: No Recent Out of Country Travel within the Last 8 Weeks: No Immunization History Tetanus Immunization: Unable to Assess Exam Const General: well developed, in distress and ill appearing Nutritional Appearance: obese Orientation: obtunded HENMT Mouth: moist mucous membranes abnormal (Mucous membranes are dry) Eyes Alignment and Position: position normal Sclera: sclerae normal Neck Neck: normal visual inspection and supple Chest Chest: normal inspection of the chest Resp Effort & Inspection: other (Upper airway obstruction secondary to his tongue) Auscultation: clear to auscultation bilaterally Cardio Rate: tachycardic Rhythm: regular rhythm GI Inspection: normal to inspection Palpation: soft General: other (Suprapubic catheter in place) Skin General: mottling and other (Cold to the touch) Neuro General: obtunded Extrem General: muscle atrophy Psych Appearance: other (Unable to evaluate) Course Reevaluation(s) Reevaluation #1: He has had about 1 L of fluid so far. Heart rate is 135. A nasal trumpet was inserted in the sonorous respirations have stopped. His arms and legs continue to be cold and mottled. Time: 08:29 Reevaluation #2: HR down into the 1-teens. Work-up is complete and he is ready for admission. Time: 11:22 Consultations Consultation #1: Dr. Anderson will admit Time: 11:56 Initial Documented Vital Signs Temperature 103.2 F H 12/29/17 07:14 Pulse Rate 155 H 12/29/17 07:14 Respiratory Rate 23 12/29/17 07:14 Blood Pressure 193/113 H 12/29/17 07:14 Pulse Oximetry 94 L 12/29/17 07:14 Last Documented Vital Signs Temperature 103.2 F H 12/29/17 07:14 Pulse Rate 130 H 12/29/17 08:38 Respiratory Rate 18 12/29/17 08:38 Blood Pressure 102/63 12/29/17 08:38 Pulse Oximetry 99 12/29/17 08:38 Critical Care Time Critical Care Time: Yes Total Critical Care Time: 45 Attestation: Time to perform other separately billable procedures was not included in the critical care time. My time did not include minutes spent treating any other patients simultaneously or on activities that did not directly contribute to the patient's treatment. The services I provided to this patient were to treat and/or prevent clinically significant deterioration due to sepsis I provided critical care services requiring my management, as noted below: Chart data review, documentation time, medication orders and management, vital sign assessments/reviewing monitor data, ordering and reviewing lab tests, ordering and interpreting/reviewing x-rays and diagnostic studies, care of the patient and discussion of the patient with the admitting physicians Medical Decision Making MDM Narrative Medical decision making narrative: This is a 36-year-old DNR long-term patient with multiple sclerosis who is bedbound. He is sent to us this morning for fever and foul appearing urine. He meets sepsis criteria in that he is febrile to 103, tachycardic at 155 and tachypneic at 23. His apparent source is urinary. He is receiving 3 L of IV fluids. He has had a Tylenol suppository. He will be treated empirically with cefepime. Medical Screen Exam Complete: Yes Emergency Medical Condition: Yes Differential Diagnosis Differential Diagnosis: Differential diagnosis of fever includes but is not limited to viral illness, strep throat, otitis media, pneumonia, sepsis, UTI Lab Data Lab results reviewed: Yes I reviewed the patient's lab results. Result diagrams: 12/29/17 07:33 12/29/17 07:33 Lab Results 12/29/17 12/29/17 12/29/17 Range/Units 07:33 07:33 07:33 WBC 17.9 H (4.0-11.0) th/mm3 RBC 5.91 H (4.50-5.90) mil/mm3 Hgb 15.7 (13.0-17.0) gm/dL Hct 49.7 (39.0-51.0) % MCV 84.1 (80.0-100.0) fL MCH 26.5 L (27.0-34.0) pg MCHC 31.5 L (32.0-36.0) % RDW 14.6 (11.6-17.2) % Plt Count 378 (150-450) th/mm3 MPV 8.5 (7.0-11.0) fL Neut % (Auto) 79.2 H (16.0-70.0) % Lymph % (Auto) 12.6 (9.0-44.0) % [place] % (Auto) 8.0 (0.0-8.0) % Eos % (Auto) 0.1 (0.0-4.0) % Baso % (Auto) 0.1 (0.0-2.0) % Neut # (Auto) 14.2 H (1.8-7.7) th/mm3 Lymph # (Auto) 2.3 (1.0-4.8) th/mm3 [place] # (Auto) 1.4 H (0.0-0.9) th/mm3 Eos # (Auto) 0.0 (0.0-0.4) th/mm3 Baso # (Auto) 0.0 (0.0-0.2) th/mm3 WBC Differential . Differential Comment Auto diff final Sodium 136 (136-145) meq/L Potassium 4.7 (3.5-5.1) meq/L Chloride 100 (98-107) meq/L Carbon Dioxide 27.7 (21.0-32.0) meq/L Anion Gap 8 (5-15) meq/L BUN 20 H (7-18) mg/dL Creatinine 1.24 (0.60-1.30) mg/dL Estimated GFR 66 L (>89) mL/min Random Glucose 317 H (74-106) mg/dL Lactic Acid 4.7 H* (0.4-2.0) mmol/L Calcium 7.6 L (8.5-10.1) mg/dL Magnesium 2.4 (1.5-2.5) mg/dL Total Bilirubin 0.2 (0.2-1.0) mg/dL AST 16 (15-37) U/L ALT 28 (12-78) U/L Alkaline Phosphatase 172 H (45-117) U/L Total Protein 7.0 (6.4-8.2) g/dL Albumin 3.1 L (3.4-5.0) g/dL Urine Color (Yellw/Straw) Urine Clarity (Clear) Urine pH (5.0-8.5) Ur Specific [place] (1.002-1.035) Urine Protein (Neg-Trace) mg/dL Urine Glucose (UA) (Negative) mg/dL Urine Ketones (Negative) mg/dL Urine Occult Blood (Negative) Urine Nitrate (Negative) Urine Bilirubin (Negative) Urine Urobilinogen (Less than 2) mg/dL Ur Leukocyte Esterase (Negative) Urine RBC (0-3) /hpf Urine WBC (0-5) /hpf Amorphous Sediment (None) /hpf Urine Bacteria (None) /hpf Hyaline Casts (0-3) /lpf Urine Mucus (Occasional) /lpf Micro UA Comment Ur Microscopic Review Urine Culture Comments 12/29/17 12/29/17 Range/Units 09:37 10:18 WBC (4.0-11.0) th/mm3 RBC (4.50-5.90) mil/mm3 Hgb (13.0-17.0) gm/dL Hct (39.0-51.0) % MCV (80.0-100.0) fL MCH (27.0-34.0) pg MCHC (32.0-36.0) % RDW (11.6-17.2) % Plt Count (150-450) th/mm3 MPV (7.0-11.0) fL Neut % (Auto) (16.0-70.0) % Lymph % (Auto) (9.0-44.0) % [place] % (Auto) (0.0-8.0) % Eos % (Auto) (0.0-4.0) % Baso % (Auto) (0.0-2.0) % Neut # (Auto) (1.8-7.7) th/mm3 Lymph # (Auto) (1.0-4.8) th/mm3 [place] # (Auto) (0.0-0.9) th/mm3 Eos # (Auto) (0.0-0.4) th/mm3 Baso # (Auto) (0.0-0.2) th/mm3 WBC Differential Differential Comment Sodium (136-145) meq/L Potassium (3.5-5.1) meq/L Chloride (98-107) meq/L Carbon Dioxide (21.0-32.0) meq/L Anion Gap (5-15) meq/L BUN (7-18) mg/dL Creatinine (0.60-1.30) mg/dL Estimated GFR (>89) mL/min Random Glucose (74-106) mg/dL Lactic Acid 3.3 H (0.4-2.0) mmol/L Calcium (8.5-10.1) mg/dL Magnesium (1.5-2.5) mg/dL Total Bilirubin (0.2-1.0) mg/dL AST (15-37) U/L ALT (12-78) U/L Alkaline Phosphatase (45-117) U/L Total Protein (6.4-8.2) g/dL Albumin (3.4-5.0) g/dL Urine Color Yellow (Yellw/Straw) Urine Clarity Cloudy H (Clear) Urine pH 6.0 (5.0-8.5) Ur Specific [place] 1.020 (1.002-1.035) Urine Protein Negative (Neg-Trace) mg/dL Urine Glucose (UA) 150 H (Negative) mg/dL Urine Ketones Trace H (Negative) mg/dL Urine Occult Blood Negative (Negative) Urine Nitrate Positive H (Negative) Urine Bilirubin Negative (Negative) Urine Urobilinogen Less than 2 (Less than 2) mg/dL Ur Leukocyte Esterase Large H (Negative) Urine RBC 3 (0-3) /hpf Urine WBC 34 H (0-5) /hpf Amorphous Sediment Occasional H (None) /hpf Urine Bacteria Moderate H (None) /hpf Hyaline Casts 4 (0-3) /lpf Urine Mucus Few H (Occasional) /lpf Micro UA Comment Culture indicated Ur Microscopic Review Not Reportable Urine Culture Comments Culture indicated Imaging Data Radiologist's impression: Chest X-Ray 12/29/17 07:13 CONCLUSION: 1. Minimal bibasilar airspace disease, likely atelectasis. 2. Moderate gaseous distention of the stomach. ECG Data EKG Prior to Arrival: No Attestation: I personally reviewed and interpreted this ECG as follows: Discharge Plan Discharge Disposition Patient Disposition: 30 Still Patient Discharge Details Diagnosis: Severe sepsis, Acute UTI Physicians Team ED Provider: Tamiko Mo Primary Care Provider: Chris William Rxs /Orders / Referrals /Forms Prescriptions: No Action ketoconazole 2 % Shampoo 1 applic TOPICAL MOTH RF: 0 gabapentin 400 mg Capsule 400 mg PO Q6H RF: 0 clonazepam 1 mg Tablet 1 mg PO BID RF: 0 triamcinolone acetonide 0.1 % Cream 1 applic TOPICAL DAILY RF: 0 baclofen 20 mg Tablet 40 mg PO BID RF: 0 citalopram [Celexa] 20 mg Tablet 20 mg PO DAILY RF: 0 bisacodyl [Dulcolax (bisacodyl)] 10 mg Suppository 10 mg ND DAILY PRN (Reason: Constipation) RF: 0 docusate sodium [Colace] 100 mg Capsule 100 mg PO BID RF: 0 bisacodyl [Dulcolax (bisacodyl)] 5 mg Tablet,Delayed Release (Dr/Ec) 5 mg PO DAILY RF: 0 oxybutynin chloride 5 mg Tablet 5 mg PO BID RF: 0 loratadine 10 mg Tablet 10 mg PO DAILY RF: 0 melatonin 1 mg Tablet 3 mg PO HS RF: 0 Status ED Status: Pending Admission
[2017-12-29 08:06] LABS: Baso % (Auto) 0.1 % (0.0-2.0); Eos % (Auto) 0.1 % (0.0-4.0); Hematocrit 49.7 % (39.0-51.0); Hemoglobin 15.7 gm/dL (13.0-17.0); Lymph # (Auto) 2.3 th/mm3 (1.0-4.8); Lymph % (Auto) 12.6 % (9.0-44.0); Mean Corpuscular HGB Conc 31.5 % (32.0-36.0); Mean Corpuscular Hemoglobin 26.5 pg (27.0-34.0); Mean Corpuscular Volume 84.1 fL (80.0-100.0); Mean Platelet Volume 8.5 fL (7.0-11.0); Mono # (Auto) 1.4 th/mm3 (0.0-0.9); Neut # (Auto) 14.2 th/mm3 (1.8-7.7); Neut % (Auto) 79.2 % (16.0-70.0); Platelet Count 378 th/mm3 (150-450); Red Blood Count 5.91 mil/mm3 (4.50-5.90); Red Cell Distribution Width 14.6 % (11.6-17.2); White Blood Count 17.9 th/mm3 (4.0-11.0)
--- NOTE | 2017-12-29 08:12 | XR ---
EXAM DATE: 12/29/2017 7:13 AM EDT AGE/SEX: 37 years / Male INDICATIONS: Shortness of breath. CLINICAL DATA: This is the patient's initial encounter. Patient reports that signs and symptoms have been present for 1 day and indicates a pain score of Nonresponsive. MEDICAL/SURGICAL HISTORY: Multiple sclerosis. Non-responsive. COMPARISON: [facility] – [place], CHEST SINGLE AP, 03/26/2017. . FINDINGS: Near expiratory film with minimal bibasilar airspace disease. The cardiomediastinal contours are unre markable. Osseous structures are intact. Moderate gaseous distention of the stomach.r CONCLUSION: 1. Minimal bibasilar airspace disease, likely atelectasis. 2. Moderate gaseous distention of the stomach. Electronically signed by: Jaden Warren MD 12/29/2017 8:10 AM EDT
[2017-12-29 08:14] LABS: Albumin 3.1 g/dL (3.4-5.0); Anion Gap 8 meq/L (5-15); Aspartate Aminotransferase 16 U/L (15-37); Blood Urea Nitrogen 20 mg/dL (7-18); Calcium 7.6 mg/dL (8.5-10.1); Carbon Dioxide 27.7 meq/L (21.0-32.0); Chloride 100 meq/L (98-107); Glomerular Filtration Rate 66 mL/min (>89); Glucose,Random 317 mg/dL (74-106); Magnesium 2.4 mg/dL (1.5-2.5); Potassium 4.7 meq/L (3.5-5.1); Sodium 136 meq/L (136-145)
[2017-12-29 08:18] LABS: Alanine Aminotransferase 28 U/L (12-78); Alkaline Phosphatase 172 U/L (45-117)
[2017-12-29 10:14] LABS: Amorphous Sediment,Urine Occasional /hpf; Bacteria,Urine Moderate /hpf; Bilirubin,Urine Negative (Negative); Clarity,Urine Cloudy (Clear); Color,Urine Yellow (Yellw/Straw); Glucose,Urine (UA) 150 mg/dL (Negative); Hyaline Casts,Urine 4 /lpf (0-3); Leukocyte Esterase,Urine Large (Negative); Mucus,Urine Few /lpf (Occasional); Nitrite,Urine Positive (Negative)
[2017-12-29] MEDS ORDERED: Acetaminophen 325 MG Tablet PO PRN (11:57)
[2017-12-29] MEDS ORDERED: Bisacodyl 10 MG Supp RECTAL PRN (11:57)
--- NOTE | 2017-12-29 12:00 | P.HP ---
History of Present Illness Service: Hospitalist Primary Care Physician: Chris William MD Chief Complaint: Fever History of Present Illness: Mr. Edmonds is a 37-year-old male with a history of paraplegia, multiple sclerosis who presents to the emergency department from his intermediate due to fever. Patient himself cannot elaborate the reasons he came to the hospital for. However, per ER reports, patient had fever as well as foul appearing urine. At the time of this interview, patient is alert and answers questions appropriately. He denies any acute concerns at this point. He denies any chest pain, shortness of breath. He is able to eat well without any difficulty. He denies any dysphagia. On arrival, temperature 103.2F, pulse rate 130, respiration 22. WBC count 17.9 K, creatinine 1.24, BUN 20, random glucose 317, lactic acid 4.7 then 3.3. Urinalysis shows evidence of urinary tract infection. Patient has a history of ESBL Klebsiella UTI. Past medical history: Multiple sclerosis, neurogenic bladder, anxiety/depression , paraplegia. Past surgical history: Bilateral hip ulcer debridement, suprapubic catheter placement. Social history: Denies using tobacco or alcohol. Family history: No significant medical history in parents. Review of Systems All other systems reviewed negative except as stated in HPI, unobtainable due to mental status PMFSH - History History Provided By: Medical Record - Medical History Medical History: Medical History (Last Reviewed 12/29/17 @ 07:45 by Tamiko Mo) Anxiety Blind Hepatitis C Insomnia Multiple sclerosis Paraplegia - Tobacco History Smoking Status: Unknown if ever smoked - Alcohol History How Often Do You Have a Drink Containing Alcohol: Unable to Obtain - Substance Use History Substance History: Unable to Obtain - Travel History Recent Travel in the [place] Within the Last 8 Weeks: No Recent Travel Out of the Country Within the Last 8 Weeks: No - Immunization History Tetanus Immunization: Unable to Assess Medications and Allergies Active Medications: Active Medications Sodium Chloride (Ns Inj) 1,000 mls @ 0 mls/hr IV.SIG BOLUS GILLIAN Stop: 12/31/17 07:31 Last Infusion: 12/29/17 11:11 Dose: Infused Ertapenem 1,000 mg/ Sodium (Chloride) 100 mls @ 200 mls/hr IV.SIG Q24H GILLIAN Allergies Allergy/AdvReac Type Severity Reaction Status Date / Time No Known Allergies Allergy Verified 12/29/17 07:20 Home Medications Medication Instructions Recorded Confirmed Type baclofen 40 mg PO BID 12/29/17 12/29/17 History bisacodyl [Dulcolax (bisacodyl)] 5 mg PO DAILY 12/29/17 12/29/17 History bisacodyl [Dulcolax (bisacodyl)] 10 mg [place] DAILY PRN 12/29/17 12/29/17 History citalopram [Celexa] 20 mg PO DAILY 12/29/17 12/29/17 History clonazepam 1 mg PO BID 12/29/17 12/29/17 History docusate sodium [Colace] 100 mg PO BID 12/29/17 12/29/17 History gabapentin 400 mg PO Q6H 12/29/17 12/29/17 History ketoconazole 1 applic TOPICAL MOTH 12/29/17 12/29/17 History loratadine 10 mg PO DAILY 12/29/17 12/29/17 History melatonin 3 mg PO HS 12/29/17 12/29/17 History oxybutynin chloride 5 mg PO BID 12/29/17 12/29/17 History triamcinolone acetonide 1 applic TOPICAL DAILY 12/29/17 12/29/17 History Exam Vital signs: Vital Signs 12/29/17 07:14 12/29/17 08:38 12/29/17 11:58 Temperature 103.2 F H 97.1 F L Pulse Rate 155 H 130 H 115 H Respiratory Rate 23 18 22 Blood Pressure 193/113 H 102/63 107/70 Pulse Oximetry 94 L 99 98 Intake & Output 12/28/17 12/29/17 12/29/17 18:59 06:59 18:59 Intake Total 3100 / 3100 Balance 3100 / 3100 Weight 95.254 kg Intake: IV 3100 / 3100 Maxipime Inj 2,000 MG In NS Inj 100 / 100 100 ML @ 200 mls/hr IV.SIG STAT STA Rx#:[id number] NS Inj 1,000 ML @ Wide Open IV. 3000 / 3000 SIG BOLUS GILLIAN Rx#:[id number] Narrative: GENERAL: Well developed, well nourished, somewhat disheveled appearance. No acute distress. SKIN: No rashes, ecchymoses or lesions. Warm and dry. HEAD: Atraumatic. Normocephalic. No temporal or scalp tenderness. EYES: Pupils equal round and reactive. No injection or drainage. ENT: Nose without bleeding, purulent drainage or septal hematoma. Airway patent. NECK: Trachea midline. No lymphadenopathy. Supple, nontender, no meningeal signs. CARDIOVASCULAR: Regular rate and rhythm without murmurs, gallops, or rubs. No JVD. RESPIRATORY: Clear to auscultation. Breath sounds equal bilaterally. No wheezes , rales, or rhonchi. GASTROINTESTINAL: Abdomen appears firm, distended but no pain on palpation. MUSCULOSKELETAL: Feet contracted. Moves upper extremities. NEUROLOGICAL: Awake and alert. Paraplegic. Results - Labs CBC & Chem 7: 12/29/17 07:33 12/29/17 07:33 Labs: Laboratory Results - last 24 hr 12/29/17 12/29/17 12/29/17 07:33 07:33 07:33 WBC 17.9 H RBC 5.91 H Hgb 15.7 Hct 49.7 MCV 84.1 MCH 26.5 L MCHC 31.5 L RDW 14.6 Plt Count 378 MPV 8.5 Neut % (Auto) 79.2 H Lymph % (Auto) 12.6 [place] % (Auto) 8.0 Eos % (Auto) 0.1 Baso % (Auto) 0.1 Neut # (Auto) 14.2 H Lymph # (Auto) 2.3 [place] # (Auto) 1.4 H Eos # (Auto) 0.0 Baso # (Auto) 0.0 WBC Differential . Differential Comment Auto diff final Sodium 136 Potassium 4.7 Chloride 100 Carbon Dioxide 27.7 Anion Gap 8 BUN 20 H Creatinine 1.24 Estimated GFR 66 L Random Glucose 317 H Lactic Acid 4.7 H* Calcium 7.6 L Magnesium 2.4 Total Bilirubin 0.2 AST 16 ALT 28 Alkaline Phosphatase 172 H Total Protein 7.0 Albumin 3.1 L Urine Color Urine Clarity Urine pH Ur Specific [place] Urine Protein Urine Glucose (UA) Urine Ketones Urine Occult Blood Urine Nitrate Urine Bilirubin Urine Urobilinogen Ur Leukocyte Esterase Urine RBC Urine WBC Amorphous Sediment Urine Bacteria Hyaline Casts Urine Mucus Micro UA Comment Ur Microscopic Review Urine Culture Comments 12/29/17 12/29/17 09:37 10:18 WBC RBC Hgb Hct MCV MCH MCHC RDW Plt Count MPV Neut % (Auto) Lymph % (Auto) [place] % (Auto) Eos % (Auto) Baso % (Auto) Neut # (Auto) Lymph # (Auto) [place] # (Auto) Eos # (Auto) Baso # (Auto) WBC Differential Differential Comment Sodium Potassium Chloride Carbon Dioxide Anion Gap BUN Creatinine Estimated GFR Random Glucose Lactic Acid 3.3 H Calcium Magnesium Total Bilirubin AST ALT Alkaline Phosphatase Total Protein Albumin Urine Color Yellow Urine Clarity Cloudy H Urine pH 6.0 Ur Specific [place] 1.020 Urine Protein Negative Urine Glucose (UA) 150 H Urine Ketones Trace H Urine Occult Blood Negative Urine Nitrate Positive H Urine Bilirubin Negative Urine Urobilinogen Less than 2 Ur Leukocyte Esterase Large H Urine RBC 3 Urine WBC 34 H Amorphous Sediment Occasional H Urine Bacteria Moderate H Hyaline Casts 4 Urine Mucus Few H Micro UA Comment Culture indicated Ur Microscopic Review Not Reportable Urine Culture Comments Culture indicated - Imaging Impressions Chest X-Ray 12/29/17 07:13 CONCLUSION: 1. Minimal bibasilar airspace disease, likely atelectasis. 2. Moderate gaseous distention of the stomach. Caprini VTE Risk Assessment Caprini VTE Risk Assessment: Moderate/High Risk (score >= 2) Caprini Risk Assessment Model: Point Value = 1 Point Value = 2 Point Value = 3 Point Value = 5 Age 41-60 Minor surgery BMI > 25 kg/m2 Swollen legs Varicose veins or History of unexplained or recurrent spontaneous Oral contraceptives or hormone replacement Sepsis (< 1 month) Serious lung disease, including pneumonia (< 1 month) Abnormal pulmonary function Acute myocardial infarction Congestive heart failure (< 1 month) History of inflammatory bowel disease Medical patient at bed rest Age 61-74 Arthroscopic surgery Major open surgery (> 45 min) Laparoscopic surgery (> 45 min) Malignancy Confined to bed (> 72 hours) Immobilizing plaster cast Central venous access Age >= 75 History of VTE Family history of VTE Factor V Leiden Prothrombin [id number] Lupus anticoagulant Anticardiolipin antibodies Elevated serum homocysteine Heparin-induced thrombocytopenia Other congenital or acquired thrombophilia Stroke (< 1 month) Elective arthroplasty Hip, pelvis, or leg fracture Acute spinal cord injury (< 1 month) Prophylaxis Regimen: Total Risk Factor Score Risk Level Prophylaxis Regimen 0-1 Low Early ambulation 2 Moderate Order ONE of the following: *Sequential Compression Device (SCD) *Heparin 5000 units SQ BID 3-4 Higher Order ONE of the following medications: *Heparin 5000 units SQ TID *Enoxaparin/Lovenox 40 mg SQ daily (WT < 150 kg, CrCl > 30 mL/min) *Enoxaparin/Lovenox 30 mg SQ daily (WT < 150 kg, CrCl > 10-29 mL/min) *Enoxaparin/Lovenox 30 mg SQ BID (WT < 150 kg, CrCl > 30 mL/min) AND/OR *Sequential Compression Device (SCD) 5 or more Highest Order ONE of the following medications: *Heparin 5000 units SQ TID (Preferred with Epidurals) *Enoxaparin/Lovenox 40 mg SQ daily (WT < 150 kg, CrCl > 30 mL/min) *Enoxaparin/Lovenox 30 mg SQ daily (WT < 150 kg, CrCl > 10-29 mL/min) *Enoxaparin/Lovenox 30 mg SQ BID (WT < 150 kg, CrCl > 30 mL/min) AND *Sequential Compression Device (SCD) Assessment and Plan - Plan Mr. Edmonds is a pleasant 37-year-old male with a history of multiple sclerosis, paraplegia who was admitted to the hospital from his intermediate due to fever, possible urinary tract infection. Severe sepsis (temperature 103.2F, heart rate 130, respiration 22, lactic acid 4.7, WBC 17.9 K, suspected urinary tract infection) Urinary tract infection Chronic suprapubic catheter -Patient has a history of ESBL Klebsiella UTI. -We will start patient on ertapenem 1 g every 24 hours. -Consult infectious disease for further recommendations. -Continue normal saline 100 mL/h. -Lactic Acid 4.7 --> 3.3. Acute kidney injury -Creatinine 1.24 today. Previously 0.54 on 09/26/2017 -Continue IV fluid and repeat labs in the AM. Probable constipation -CXR shows abdominal distention. Will obtain KUB. -Provide laxatives. History of multiple sclerosis History of paraplegia Anxiety/depression Neuropathic pain Neurogenic bladder Insomnia -We will continue home medications citalopram, clonazepam, gabapentin -We will hold baclofen for now. -Continue oxybutynin -Continue melatonin DNR. Lovenox.
--- NOTE | 2017-12-29 13:23 | P.CONID ---
History of Present Illness Service: Infectious disease Consult date: 12/29/17 Requesting Physician: Robert Anderson Reason for Consult: Evaluate patient with UTI and sepsis Primary Care Provider: Chris William MD Chief Complaint: Fever History of Present Illness: Patient seen and examined. Records reviewed. Patient is a 37-year-old male, resides in the nursing room, he is bedridden, and has history of multiple sclerosis, has had problem with recurrent UTI, brought into the hospital for evaluation of fever. Patient has a suprapubic catheter that was placed March 2017. He has known history of recurrent UTI. The catheter reportedly gets changed once a month, but is unclear as to when the last time it was changed. On presentation he was febrile up to 103.2. His white count was 17,000, elevated lactic acid. His urinalysis did show pyuria. Chest x-ray with some basilar infiltrates or atelectasis. Patient was admitted for sepsis and UTI. There was no mention of any respiratory complaint, any nausea or vomiting or diarrhea Infectious disease consultation has been requested to assist with evaluation and treatment. Review of Systems unobtainable due to mental status Constitutional: Reports fever(s) PMFSH - History History Provided By: Medical Record - Medical History Medical History: Medical History (Last Updated 12/29/17 @ 13:35 by Siobhan Munson MD) Anxiety Blind Hepatitis C Insomnia Multiple sclerosis Paraplegia Suprapubic catheter - Tobacco History Smoking Status: Unknown if ever smoked - Alcohol History How Often Do You Have a Drink Containing Alcohol: Unable to Obtain - Substance Use History Substance History: Unable to Obtain - Travel History Recent Travel in the [place] Within the Last 8 Weeks: No Recent Travel Out of the Country Within the Last 8 Weeks: No - Immunization History Tetanus Immunization: Unable to Assess Medications and Allergies Active Medications: Active Medications Acetaminophen (Tylenol) 650 mg PO Q4H PRN PRN Reason: Headache, fever, pain 1-4 Al Hydroxide/Mg Hydroxide (Milk Of Magnesia Liq) 30 ml PO Q12H PRN PRN Reason: Mild Constipation Bisacodyl (Dulcolax Supp) 10 mg RECTAL DAILY PRN PRN Reason: SEVERE CONSITIPATION Citalopram Hydrobromide (Celexa) 20 mg PO DAILY GILLIAN Clonazepam (Klonopin) 1 mg PO BID GILLIAN Docusate Sodium (Colace) 100 mg PO BID GILLIAN Enoxaparin Sodium (Lovenox Inj) 40 mg SQ Q24H GILLIAN Gabapentin (Neurontin) 400 mg PO Q6H GILLIAN Sodium Chloride (Ns Inj) 1,000 mls @ 0 mls/hr IV.SIG BOLUS GILLIAN Stop: 12/31/17 07:31 Last Infusion: 12/29/17 11:11 Dose: Infused Ertapenem 1,000 mg/ Sodium (Chloride) 100 mls @ 200 mls/hr IV.SIG Q24H GILLIAN Sodium Chloride (Ns Inj) 1,000 mls @ 100 mls/hr IV.CONT .Q10H GILLIAN Stop: 12/31/17 11:59 Ketoconazole (Nizoral 2% Shampoo) 1 applicatio TOPICAL MOTH [facility] Lactulose (Lactulose Liq) 30 ml PO DAILY PRN PRN Reason: SEVERE CONSITIPATION Non-Formulary Medication (Melatonin [Melatonin]) 3 mg PO HS [facility] Ondansetron HCl (Zofran Inj) 4 mg IV.PUSH Q6H PRN PRN Reason: NAUSEA OR VOMITING Oxybutynin Chloride (Ditropan) 5 mg PO BID [facility] Sennosides (Senokot) 17.2 mg PO Q12H PRN PRN Reason: Moderate Constipation Allergies Allergy/AdvReac Type Severity Reaction Status Date / Time No Known Allergies Allergy Verified 12/29/17 07:20 Home Medications Medication Instructions Recorded Confirmed Type baclofen 40 mg PO BID 12/29/17 12/29/17 History bisacodyl [Dulcolax (bisacodyl)] 5 mg PO DAILY 12/29/17 12/29/17 History bisacodyl [Dulcolax (bisacodyl)] 10 mg [place] DAILY PRN 12/29/17 12/29/17 History citalopram [Celexa] 20 mg PO DAILY 12/29/17 12/29/17 History clonazepam 1 mg PO BID 12/29/17 12/29/17 History docusate sodium [Colace] 100 mg PO BID 12/29/17 12/29/17 History gabapentin 400 mg PO Q6H 12/29/17 12/29/17 History ketoconazole 1 applic TOPICAL MOTH 12/29/17 12/29/17 History loratadine 10 mg PO DAILY 12/29/17 12/29/17 History melatonin 3 mg PO HS 12/29/17 12/29/17 History oxybutynin chloride 5 mg PO BID 12/29/17 12/29/17 History triamcinolone acetonide 1 applic TOPICAL DAILY 12/29/17 12/29/17 History Exam Vital signs: Vital Signs 12/29/17 07:14 12/29/17 08:38 12/29/17 11:58 Temperature 103.2 F H 97.1 F L Pulse Rate 155 H 130 H 115 H Respiratory Rate 23 18 22 Blood Pressure 193/113 H 102/63 107/70 Pulse Oximetry 94 L 99 98 12/29/17 12:07 12/29/17 12:52 Temperature Pulse Rate Respiratory Rate 22 Blood Pressure Pulse Oximetry 96 Intake & Output 12/28/17 12/29/17 12/29/17 18:59 06:59 18:59 Intake Total 3100 / 3100 Balance 3100 / 3100 Weight 95.254 kg Intake: IV 3100 / 3100 Maxipime Inj 2,000 MG In NS Inj 100 / 100 100 ML @ 200 mls/hr IV.SIG STAT STA Rx#:[id number] NS Inj 1,000 ML @ Wide Open IV. 3000 / 3000 SIG BOLUS GILLIAN Rx#:[id number] Narrative: Physical Examination GENERAL: Patient is a well-nourished, well-developed male, awake and alert, confused, not in respiratory distress. SKIN: Warm and dry. has some petechia in his LUE and L thigh. Scattered dry abrasions both LE HEAD: Atraumatic. Normocephalic. No temporal wasting, or tenderness. EYES: [place] conjunctiva. No petechia or hemorrhage. Pupils equal, round and reactive to light. Extraocular movements full and intact. No scleral icterus. No injection or drainage. EARS, NOSE AND THROAT: Nose without bleeding or purulent nasal discharge. Dry oral mucosa NECK: Trachea midline. Supple and not tender, no meningeal signs CARDIOVASCULAR: Regular rate and rhythm. No murmurs, rubs or gallops heard RESPIRATORY: Clear to auscultation. Breath sounds equal bilaterally. No rales , wheezing or rhonchi. Decreased breath sounds at bases ABDOMEN: Distended, protuberant, bowel sounds present and normoactive. Mildly tender on palpation. SPC cath with no surrounding erythema. Urine with sediment EXTREMITIES: BLE spastic, both feet plantar flexed. [place] UE also spastic. NEUROLOGICAL: Awake, confused. All extremities spastic. PSYCHIATRIC: Unable to assess LINE: No evidence of infection Results - Labs CBC & Chem 7: 12/29/17 07:33 12/29/17 07:33 Labs: Laboratory Results - last 24 hr 12/29/17 12/29/17 12/29/17 07:33 07:33 07:33 WBC 17.9 H RBC 5.91 H Hgb 15.7 Hct 49.7 MCV 84.1 MCH 26.5 L MCHC 31.5 L RDW 14.6 Plt Count 378 MPV 8.5 Neut % (Auto) 79.2 H Lymph % (Auto) 12.6 [place] % (Auto) 8.0 Eos % (Auto) 0.1 Baso % (Auto) 0.1 Neut # (Auto) 14.2 H Lymph # (Auto) 2.3 [place] # (Auto) 1.4 H Eos # (Auto) 0.0 Baso # (Auto) 0.0 WBC Differential . Differential Comment Auto diff final Sodium 136 Potassium 4.7 Chloride 100 Carbon Dioxide 27.7 Anion Gap 8 BUN 20 H Creatinine 1.24 Estimated GFR 66 L Random Glucose 317 H Lactic Acid 4.7 H* Calcium 7.6 L Magnesium 2.4 Total Bilirubin 0.2 AST 16 ALT 28 Alkaline Phosphatase 172 H Total Protein 7.0 Albumin 3.1 L Urine Color Urine Clarity Urine pH Ur Specific [place] Urine Protein Urine Glucose (UA) Urine Ketones Urine Occult Blood Urine Nitrate Urine Bilirubin Urine Urobilinogen Ur Leukocyte Esterase Urine RBC Urine WBC Amorphous Sediment Urine Bacteria Hyaline Casts Urine Mucus Micro UA Comment Ur Microscopic Review Urine Culture Comments 12/29/17 12/29/17 09:37 10:18 WBC RBC Hgb Hct MCV MCH MCHC RDW Plt Count MPV Neut % (Auto) Lymph % (Auto) [place] % (Auto) Eos % (Auto) Baso % (Auto) Neut # (Auto) Lymph # (Auto) [place] # (Auto) Eos # (Auto) Baso # (Auto) WBC Differential Differential Comment Sodium Potassium Chloride Carbon Dioxide Anion Gap BUN Creatinine Estimated GFR Random Glucose Lactic Acid 3.3 H Calcium Magnesium Total Bilirubin AST ALT Alkaline Phosphatase Total Protein Albumin Urine Color Yellow Urine Clarity Cloudy H Urine pH 6.0 Ur Specific [place] 1.020 Urine Protein Negative Urine Glucose (UA) 150 H Urine Ketones Trace H Urine Occult Blood Negative Urine Nitrate Positive H Urine Bilirubin Negative Urine Urobilinogen Less than 2 Ur Leukocyte Esterase Large H Urine RBC 3 Urine WBC 34 H Amorphous Sediment Occasional H Urine Bacteria Moderate H Hyaline Casts 4 Urine Mucus Few H Micro UA Comment Culture indicated Ur Microscopic Review Not Reportable Urine Culture Comments Culture indicated - Imaging Impressions Chest X-Ray 12/29/17 07:13 CONCLUSION: 1. Minimal bibasilar airspace disease, likely atelectasis. 2. Moderate gaseous distention of the stomach. Assessment and Plan - Plan Impression Sepsis on admission UTI, has SPC in place Known MS Bedridden Hx MDRO infections including ESBL+ Recommendation Follow C/S - BC and UC renal US to eval for obstruction IV meropenem while C/S pending Follow temps Monitor progress i will determine course of rx once workup is completed I will follow along with you Thank you for this consultation
[2017-12-29] MEDS ORDERED: Meropenem Inj 1,000 MG in Sodium Chlor 0.9% Inj 100 ML IV.SIG STA (13:25)
[2017-12-29] MEDS: Sod Chloride 0.9% Inj 1,000 ML IV.CONT SCH (13:25)
[2017-12-29] MEDS: Enoxaparin Inj 40 MG/0.4 ML Syringe SQ SCH (13:25)
[2017-12-29] MEDS ORDERED: ASP: Documented ESBL, MDR A baumannii or P. aeruginosa OTHER PRN (13:25)
[2017-12-29] MEDS ORDERED: Sodium Chloride 0.9% 2 ML Flush PRN IV.FLUSH (14:57)
[2017-12-29] MEDS: Gabapentin 400 MG Capsule PO SCH ×2 (16:11→23:06)
--- NOTE | 2017-12-29 17:09 | US ---
EXAM DATE: 12/29/2017 12:00 AM EDT AGE/SEX: 37 years / Male INDICATIONS: Abnormal lab values. CLINICAL DATA: This is the patient's subsequent encounter. Patient reports that signs and symptoms h ave been present for 1 day and indicates a pain score of 1/10. MEDICAL/SURGICAL HISTORY: . Multiple sclerosis. Paraplegia. Bladder stones. Depression. . Sup rapubic catheter. Debridement of bilateral hip ulcers. Neurogenic bladder. COMPARISON: [facility] [place], [place] KIDNEY/RENAL/BLADDER, 03/26/2017. . MEASUREMENTS: Right Kidney:__10.2 x 4.7 x 5.5 cm Left Kidney:__11.3 x 5.5 x 5.5 cm FINDINGS: Right Kidney: Minimally Increased echotexture. No mass or hydronephrosis. Left Kidney: Minimally Increased echotexture. No mass or hydronephrosis. Bladder: [place] catheter is present. Bladder decompressed. Other: None. CONCLUSION: No evidence of hydronephrosis. Electronically signed by: Erick Garcia MD 12/29/2017 5:08 PM EDT
[2017-12-29] MEDS: Docusate Sodium 100 MG Capsule PO SCH (23:06)
[2017-12-29] MEDS: clonazePAM 1 MG Tablet PO SCH (23:06)
[2017-12-29] MEDS: Melatonin 5 MG Tablet PO SCH (23:10)
[2017-12-29] MEDS: Sodium Chloride 0.9% 2 ML Flush BID IV.FLUSH SCH (23:19)
[2017-12-30] MEDS: Sod Chloride 0.9% Inj 1,000 ML IV.CONT SCH ×3 (02:30→18:43)
[2017-12-30] MEDS: Gabapentin 400 MG Capsule PO SCH ×4 (03:15→22:23)
[2017-12-30 07:08] LABS: Anion Gap 8 meq/L (5-15); Blood Urea Nitrogen 15 mg/dL (7-18); Calcium 7.4 mg/dL (8.5-10.1); Carbon Dioxide 25.5 meq/L (21.0-32.0); Chloride 112 meq/L (98-107); Glomerular Filtration Rate Greater Than 89 mL/min (>89); Glucose,Random 106 mg/dL (74-106); Potassium 3.6 meq/L (3.5-5.1); Sodium 145 meq/L (136-145)
[2017-12-30 07:15] LABS: Baso % (Auto) 0.3 % (0.0-2.0); Eos # (Auto) 0.1 th/mm3 (0.0-0.4); Hematocrit 38.8 % (39.0-51.0); Hemoglobin 13.1 gm/dL (13.0-17.0); Lymph # (Auto) 2.6 th/mm3 (1.0-4.8); Lymph % (Auto) 28.7 % (9.0-44.0); Mean Corpuscular HGB Conc 33.6 % (32.0-36.0); Mean Corpuscular Hemoglobin 27.1 pg (27.0-34.0); Mean Corpuscular Volume 80.7 fL (80.0-100.0); Mean Platelet Volume 8.4 fL (7.0-11.0); Mono # (Auto) 1.2 th/mm3 (0.0-0.9); Mono % (Auto) 13.1 % (0.0-8.0); Neut # (Auto) 5.2 th/mm3 (1.8-7.7); Neut % (Auto) 56.9 % (16.0-70.0); Platelet Count 223 th/mm3 (150-450); Red Blood Count 4.81 mil/mm3 (4.50-5.90); Red Cell Distribution Width 14.4 % (11.6-17.2); White Blood Count 9.1 th/mm3 (4.0-11.0)
[2017-12-30 07:42] LABS: Total Protein 5.8 g/dL (6.4-8.2)
[2017-12-30] MEDS: clonazePAM 1 MG Tablet PO SCH ×2 (10:07→22:24)
[2017-12-30] MEDS: Docusate Sodium 100 MG Capsule PO SCH ×2 (10:07→22:11)
[2017-12-30] MEDS: Citalopram 20 MG Tablet PO SCH (10:08)
[2017-12-30] MEDS: Sodium Chloride 0.9% 2 ML Flush BID IV.FLUSH SCH ×2 (10:08→22:24)
--- NOTE | 2017-12-30 12:44 | P.PNID ---
Subjective Remarks: Patient is a 37-year-old male, resides in the nursing room, he is bedridden, and has history of multiple sclerosis, has had problem with recurrent UTI, brought into the hospital for evaluation of fever. Patient has a suprapubic catheter that was placed March 2017. He has known history of recurrent UTI. The catheter reportedly gets changed once a month, but is unclear as to when the last time it was changed. On presentation he was febrile up to 103.2. His white count was 17,000, elevated lactic acid. His urinalysis did show pyuria. Chest x-ray with some basilar infiltrates or atelectasis. Patient was admitted for sepsis and UTI. There was no mention of any respiratory complaint, any nausea or vomiting or diarrhea Infectious disease consultation has been requested to assist with evaluation and treatment. Notes reviewed Temps 99+ Awake and responding C/S pending WBC down to normal Creatinine better Renal US no hydronephrosis Antibiotics: Meropenem Lines: PIV Past Medical History: Anxiety Blind Hepatitis C Insomnia Multiple sclerosis Paraplegia Suprapubic catheter Allergies/Adverse Reactions: Allergies No Known Allergies Allergy (Verified 12/29/17 07:20) Objective Vital Signs 12/29/17 12:52 12/29/17 13:44 12/29/17 14:35 Temperature Pulse Rate 107 H 111 H Respiratory Rate 20 16 Blood Pressure 107/71 103/69 Pulse Oximetry 96 12/29/17 15:42 12/29/17 16:00 12/29/17 20:00 Temperature 97.1 F L 97.9 F Pulse Rate 110 H 122 H 121 H Respiratory Rate 22 20 18 Blood Pressure 110/72 116/73 100/65 Pulse Oximetry 98 96 97 12/29/17 20:13 12/30/17 00:00 12/30/17 04:00 Temperature 99.6 F 99.4 F Pulse Rate 117 H 115 H Respiratory Rate 18 18 Blood Pressure 110/70 108/67 Pulse Oximetry 95 97 96 12/30/17 08:00 12/30/17 10:31 Temperature 98.7 F Pulse Rate 110 H Respiratory Rate 20 Blood Pressure 106/67 Pulse Oximetry 97 97 Intake & Output 12/29/17 12/30/17 12/30/17 18:59 06:59 18:59 Intake Total 3200 / 3200 1100 / 1100 808 / 808 Output Total 1250 / 1250 Balance 3200 / 3200 -150 / -150 808 / 808 Weight 95.254 kg 85.2 kg Intake: IV 3200 / 3200 1100 / 1100 808 / 808 NS Inj 1,000 ML @ 100 mls/hr IV 1000 / 1000 708 / 708 .CONT .Q10H [facility] Rx#:[id number] Maxipime Inj 2,000 MG In NS Inj 100 / 100 100 ML @ 200 mls/hr IV.SIG STAT [facility] Rx#:[id number] Merrem Inj 1,000 MG In NS Inj 100 / 100 100 / 100 100 / 100 100 ML @ 200 mls/hr IV.SIG Q8H [facility] Rx#:[id number] NS Inj 1,000 ML @ Wide Open IV. 3000 / 3000 SIG BOLUS [facility] Rx#:[id number] Output: Urine Amount (Catheter) 1250 / 1250 Suprapubic 1250 / 1250 Other: Date of Last Bowel Movement 12/29/17 12/29/17 12/29/17 07:33 Blood - Peripheral Aerobic Blood Culture - Preliminary No growth in 1 day 12/29/17 07:33 Blood - Peripheral Anaerobic Blood Culture - Preliminary No growth in 1 day 12/29/17 07:28 Blood - Peripheral Aerobic Blood Culture - Preliminary No growth in 1 day 12/29/17 07:28 Blood - Peripheral Anaerobic Blood Culture - Preliminary No growth in 1 day 12/29/17 09:37 Suprapubic Urine Urine Culture - Pending Lab - Hematology Results 12/29/17 12/30/17 07:33 05:58 WBC 17.9 H 9.1 RBC 5.91 H 4.81 Hgb 15.7 13.1 D Hct 49.7 38.8 L MCV 84.1 80.7 MCH 26.5 L 27.1 MCHC 31.5 L 33.6 RDW 14.6 14.4 Plt Count 378 223 D MPV 8.5 8.4 Neut % (Auto) 79.2 H 56.9 Lymph % (Auto) 12.6 28.7 [place] % (Auto) 8.0 13.1 H Eos % (Auto) 0.1 1.0 Baso % (Auto) 0.1 0.3 Neut # (Auto) 14.2 H 5.2 Lymph # (Auto) 2.3 2.6 [place] # (Auto) 1.4 H 1.2 H Eos # (Auto) 0.0 0.1 Baso # (Auto) 0.0 0.0 WBC Differential . . Differential Comment Auto diff final Auto diff final Lab - Chemistry Results 12/29/17 12/29/17 12/29/17 07:33 07:33 10:18 Sodium 136 Potassium 4.7 Chloride 100 Carbon Dioxide 27.7 Anion Gap 8 BUN 20 H Creatinine 1.24 Estimated GFR 66 L Random Glucose 317 H Lactic Acid 4.7 H* 3.3 H Calcium 7.6 L Prot Corrected Calcium Magnesium 2.4 Total Bilirubin 0.2 AST 16 ALT 28 Alkaline Phosphatase 172 H Total Protein 7.0 Albumin 3.1 L 12/29/17 12/30/17 19:46 05:58 Sodium 145 Potassium 3.6 D Chloride 112 H D Carbon Dioxide 25.5 Anion Gap 8 BUN 15 Creatinine 0.57 L Estimated GFR Greater than 89 Random Glucose 106 D Lactic Acid 1.8 Calcium 7.4 L* Prot Corrected Calcium 8.1 L Magnesium Total Bilirubin AST ALT Alkaline Phosphatase Total Protein 5.8 L D Albumin Imaging: ITS Impressions Abdomen/Bladder Ultrasound 12/29/17 00:00 CONCLUSION: No evidence of hydronephrosis. Chest X-Ray 12/29/17 07:13 CONCLUSION: 1. Minimal bibasilar airspace disease, likely atelectasis. 2. Moderate gaseous distention of the stomach. Physical Exam: GENERAL: awake and alert, responding, not in respiratory distress. SKIN: Warm and dry. has some petechia in his LUE and L thigh. Scattered dry abrasions both LE HEAD: Atraumatic. Normocephalic. No temporal wasting, or tenderness. EYES: [place] conjunctiva. No petechia or hemorrhage. Pupils equal, round and reactive to light. Extraocular movements full and intact. No scleral icterus. No injection or drainage. EARS, NOSE AND THROAT: Nose without bleeding or purulent nasal discharge. Dry oral mucosa NECK: Trachea midline. Supple and not tender, no meningeal signs CARDIOVASCULAR: Regular rate and rhythm. No murmurs, rubs or gallops heard RESPIRATORY: Clear to auscultation. Breath sounds equal bilaterally. No rales , wheezing or rhonchi. Decreased breath sounds at bases ABDOMEN: Distended, protuberant, bowel sounds present and normoactive. Mildly tender on palpation. SPC cath with no surrounding erythema. Urine with sediment EXTREMITIES: BLE spastic, both feet plantar flexed. Bishop UE also spastic. NEUROLOGICAL: Awake, confused. All extremities spastic. PSYCHIATRIC: Unable to assess LINE: No evidence of infection Assessment and Plan - Plan Impression Sepsis on admission UTI, has SPC in place Known MS Bedridden Hx MDRO infections including ESBL+ Recommendation Follow C/S - BC and UC IV meropenem while C/S pending Follow temps Monitor progress
--- NOTE | 2017-12-30 13:10 | P.PN ---
Subjective Interval history: Nursing denies any deterioration since last night. Patient is asking for me to restart his home baclofen. Physical Exam Vital signs: Vital Signs 12/29/17 13:44 12/29/17 14:35 12/29/17 15:42 Temperature Pulse Rate 107 H 111 H 110 H Respiratory Rate 20 16 22 Blood Pressure 107/71 103/69 110/72 Pulse Oximetry 98 12/29/17 16:00 12/29/17 20:00 12/29/17 20:13 Temperature 97.1 F L 97.9 F Pulse Rate 122 H 121 H Respiratory Rate 20 18 Blood Pressure 116/73 100/65 Pulse Oximetry 96 97 95 12/30/17 00:00 12/30/17 04:00 12/30/17 08:00 Temperature 99.6 F 99.4 F 98.7 F Pulse Rate 117 H 115 H 110 H Respiratory Rate 18 18 20 Blood Pressure 110/70 108/67 106/67 Pulse Oximetry 97 96 97 12/30/17 10:31 Temperature Pulse Rate Respiratory Rate Blood Pressure Pulse Oximetry 97 Intake & Output 12/29/17 12/30/17 12/30/17 18:59 06:59 18:59 Intake Total 3200 / 3200 1100 / 1100 808 / 808 Output Total 1250 / 1250 Balance 3200 / 3200 -150 / -150 808 / 808 Weight 95.254 kg 85.2 kg Intake: IV 3200 / 3200 1100 / 1100 808 / 808 NS Inj 1,000 ML @ 100 mls/hr IV 1000 / 1000 708 / 708 .CONT .Q10H [facility] Rx#:[id number] Maxipime Inj 2,000 MG In NS Inj 100 / 100 100 ML @ 200 mls/hr IV.SIG STAT [facility] Rx#:[id number] Merrem Inj 1,000 MG In NS Inj 100 / 100 100 / 100 100 / 100 100 ML @ 200 mls/hr IV.SIG Q8H [facility] Rx#:[id number] NS Inj 1,000 ML @ Wide Open IV. 3000 / 3000 SIG BOLUS [facility] Rx#:[id number] Output: Urine Amount (Catheter) 1250 / 1250 Suprapubic 1250 / 1250 Other: Date of Last Bowel Movement 12/29/17 12/29/17 Narrative: Clear lungs bilaterally, unlabored breathing Abdomen has no tenderness palpation, soft, nondistended - Urinary Catheter Management Suprapubic Cath placed during this visit: no Reason for continuing: Terminally ill/Comfort care Results - Labs CBC & Chem 7: 12/30/17 05:58 12/30/17 05:58 Laboratory Results - last 24 hr 12/29/17 12/30/17 12/30/17 19:46 05:58 05:58 WBC 9.1 RBC 4.81 Hgb 13.1 D Hct 38.8 L MCV 80.7 MCH 27.1 MCHC 33.6 RDW 14.4 Plt Count 223 D MPV 8.4 Neut % (Auto) 56.9 Lymph % (Auto) 28.7 [place] % (Auto) 13.1 H Eos % (Auto) 1.0 Baso % (Auto) 0.3 Neut # (Auto) 5.2 Lymph # (Auto) 2.6 [place] # (Auto) 1.2 H Eos # (Auto) 0.1 Baso # (Auto) 0.0 WBC Differential . Differential Comment Auto diff final Sodium 145 Potassium 3.6 D Chloride 112 H D Carbon Dioxide 25.5 Anion Gap 8 BUN 15 Creatinine 0.57 L Estimated GFR Greater than 89 Random Glucose 106 D Lactic Acid 1.8 Calcium 7.4 L* Prot Corrected Calcium 8.1 L Total Protein 5.8 L D Microbiology 12/29/17 09:37 Suprapubic Urine Urine Culture - Final 50-100,000 cfu/mL mixed aleyda (probable contaminants ) 12/29/17 07:33 Blood - Peripheral Aerobic Blood Culture - Preliminary No growth in 1 day 12/29/17 07:33 Blood - Peripheral Anaerobic Blood Culture - Preliminary No growth in 1 day 12/29/17 07:28 Blood - Peripheral Aerobic Blood Culture - Preliminary No growth in 1 day 12/29/17 07:28 Blood - Peripheral Anaerobic Blood Culture - Preliminary No growth in 1 day - Imaging Impressions Abdomen/Bladder Ultrasound 12/29/17 00:00 CONCLUSION: No evidence of hydronephrosis. Assessment and Plan - Plan Mr. Edmonds is a pleasant 37-year-old male with a history of multiple sclerosis, paraplegia who was admitted to the hospital from his longterm due to fever, possible urinary tract infection. Severe sepsis Urinary tract infection Chronic suprapubic catheter -Patient has a history of ESBL Klebsiella UTI. -On meropenem per infectious disease, follow-up cultures -Lactic acidosis resolved, sepsis element improving Acute kidney injury -Resolved with IV fluids Probable constipation -CXR shows abdominal distention. Awaiting KUB -Provide laxatives. History of multiple sclerosis History of paraplegia Anxiety/depression Neuropathic pain Neurogenic bladder Insomnia -We will continue home medications citalopram, clonazepam, gabapentin -Restart home baclofen -Continue oxybutynin -Continue melatonin DNR. Brigidox.
--- NOTE | 2017-12-30 13:36 | ECG ---
Date Performed: 12/29/2017 Time Performed: 07:30:21 PTAGE: 37 years EKG: SINUS TACHYCARDIA, POSSIBLE ATRIAL FLUTTER NONSPECIFIC ST & T-WAVE ABNORMALITY ABNORMAL RHY THM ECG Tachycardia has increased since prior tracing and is associated with nonspecific ST changes PREVIOUS TRACING : 03/24/2017 02.59 DOCTOR: Wes Goode Interpretating Date/Time 12/30/2017 13:35:28
[2017-12-30] MEDS: Enoxaparin Inj 40 MG/0.4 ML Syringe SQ SCH (14:28)
--- NOTE | 2017-12-30 17:42 | XR ---
EXAM DATE: 12/30/2017 5:38 PM EDT AGE/SEX: 37 years / Male INDICATIONS: Abdominal distention. CLINICAL DATA: This is the patient's initial encounter. Patient reports that signs and symptoms have been present for 2 days and indicates a pain score of 0/10. MEDICAL/SURGICAL HISTORY: Multiple sclerosis. None. COMPARISON: . FINDINGS: The abdominal bowel gas pattern is normal with some mild air distention throughout the colon. No ab normal masses, calcifications, or organomegaly is seen. The osseous structures are intact with findi ngs of degenerative osteoarthritic changes in both hips. CONCLUSION: 1. Nonobstructive bowel gas pattern with some air distention of the colon. 2. Osteoarthritic changes in both hips. Electronically signed by: Jaylan Meek MD 12/30/2017 5:40 PM EDT
[2017-12-30] MEDS: Melatonin 5 MG Tablet PO SCH (22:39)
[2017-12-31] MEDS: Sod Chloride 0.9% Inj 1,000 ML IV.CONT SCH ×2 (00:32→03:21)
[2017-12-31] MEDS: Gabapentin 400 MG Capsule PO SCH ×2 (03:15→09:41)
[2017-12-31] MEDS: Docusate Sodium 100 MG Capsule PO SCH (09:40)
[2017-12-31] MEDS: Citalopram 20 MG Tablet PO SCH (09:41)
[2017-12-31] MEDS: clonazePAM 1 MG Tablet PO SCH (09:41)
[2017-12-31] MEDS: Sodium Chloride 0.9% 2 ML Flush BID IV.FLUSH SCH (09:41)
--- NOTE | 2017-12-31 10:12 | P.PNID ---
Subjective Remarks: Patient is a 37-year-old male, resides in the nursing room, he is bedridden, and has history of multiple sclerosis, has had problem with recurrent UTI, brought into the hospital for evaluation of fever. Patient has a suprapubic catheter that was placed March 2017. He has known history of recurrent UTI. The catheter reportedly gets changed once a month, but is unclear as to when the last time it was changed. On presentation he was febrile up to 103.2. His white count was 17,000, elevated lactic acid. His urinalysis did show pyuria. Chest x-ray with some basilar infiltrates or atelectasis. Patient was admitted for sepsis and UTI. There was no mention of any respiratory complaint, any nausea or vomiting or diarrhea Infectious disease consultation has been requested to assist with evaluation and treatment. Notes reviewed D/W RN Temps normal He is awake and talking BC negative UC mixed WBC down to normal Creatinine better Renal US no hydronephrosis Antibiotics: Meropenem Lines: PIV Past Medical History: Anxiety Blind Hepatitis C Insomnia Multiple sclerosis Paraplegia Suprapubic catheter Allergies/Adverse Reactions: Allergies No Known Allergies Allergy (Verified 12/29/17 07:20) Objective Vital Signs 12/30/17 10:31 12/30/17 12:00 12/30/17 16:00 Temperature 98.5 F 97.9 F Pulse Rate 112 H 100 H Respiratory Rate 20 20 Blood Pressure 107/65 105/63 Pulse Oximetry 97 96 97 12/30/17 20:00 12/31/17 00:00 12/31/17 04:00 Temperature 97.7 F 98.6 F 97.9 F Pulse Rate 86 89 93 H Respiratory Rate 18 18 18 Blood Pressure 110/83 131/72 111/65 Pulse Oximetry 100 99 98 12/31/17 08:00 Temperature 97.8 F Pulse Rate 81 Respiratory Rate 18 Blood Pressure 108/66 Pulse Oximetry 94 L Intake & Output 12/30/17 12/31/17 12/31/17 18:59 06:59 18:59 Intake Total 1388 / 1388 1049 / 1049 Output Total 575 / 575 600 / 600 Balance 813 / 813 449 / 449 Weight 87.6 kg Intake: IV 908 / 908 1049 / 1049 NS Inj 1,000 ML @ 100 mls/hr IV 708 / 708 849 / 849 .CONT .Q10H [facility] Rx#:[id number] Merrem Inj 1,000 MG In NS Inj 200 / 200 200 / 200 100 ML @ 200 mls/hr IV.SIG Q8H [facility] Rx#:[id number] Oral 480 / 480 Output: Urine 575 / 575 Urine Amount (Catheter) 600 / 600 Suprapubic 600 / 600 Other: Date of Last Bowel Movement 12/30/17 12/29/17 # Incontinent Bowel Movements 2 12/29/17 09:37 Suprapubic Urine Urine Culture - Final 50-100,000 cfu/mL mixed aleyda (probable contaminants ) 12/29/17 07:33 Blood - Peripheral Aerobic Blood Culture - Preliminary No growth in 1 day 12/29/17 07:33 Blood - Peripheral Anaerobic Blood Culture - Preliminary No growth in 1 day 12/29/17 07:28 Blood - Peripheral Aerobic Blood Culture - Preliminary No growth in 1 day 12/29/17 07:28 Blood - Peripheral Anaerobic Blood Culture - Preliminary No growth in 1 day Lab - Hematology Results 12/30/17 05:58 WBC 9.1 RBC 4.81 Hgb 13.1 D Hct 38.8 L MCV 80.7 MCH 27.1 MCHC 33.6 RDW 14.4 Plt Count 223 D MPV 8.4 Neut % (Auto) 56.9 Lymph % (Auto) 28.7 [place] % (Auto) 13.1 H Eos % (Auto) 1.0 Baso % (Auto) 0.3 Neut # (Auto) 5.2 Lymph # (Auto) 2.6 [place] # (Auto) 1.2 H Eos # (Auto) 0.1 Baso # (Auto) 0.0 WBC Differential . Differential Comment Auto diff final Lab - Chemistry Results 12/29/17 12/29/17 12/30/17 10:18 19:46 05:58 Sodium 145 Potassium 3.6 D Chloride 112 H D Carbon Dioxide 25.5 Anion Gap 8 BUN 15 Creatinine 0.57 L Estimated GFR Greater than 89 Random Glucose 106 D Lactic Acid 3.3 H 1.8 Calcium 7.4 L* Prot Corrected Calcium 8.1 L Total Protein 5.8 L D Imaging: ITS Impressions Abdomen/Bladder Ultrasound 12/29/17 00:00 CONCLUSION: No evidence of hydronephrosis. Chest X-Ray 12/29/17 07:13 CONCLUSION: 1. Minimal bibasilar airspace disease, likely atelectasis. 2. Moderate gaseous distention of the stomach. Abdomen X-Ray 12/30/17 00:00 CONCLUSION: 1. Nonobstructive bowel gas pattern with some air distention of the colon. 2. Osteoarthritic changes in both hips. Physical Exam: GENERAL: awake and alert, talking, not in respiratory distress. SKIN: Warm and dry. has some petechia in his LUE and L thigh. Scattered dry abrasions both LE HEAD: Atraumatic. Normocephalic. No temporal wasting, or tenderness. EYES: [place] conjunctiva. No petechia or hemorrhage. Pupils equal, round and reactive to light. Extraocular movements full and intact. No scleral icterus. No injection or drainage. EARS, NOSE AND THROAT: Nose without bleeding or purulent nasal discharge. Dry oral mucosa NECK: Trachea midline. Supple and not tender, no meningeal signs CARDIOVASCULAR: Regular rate and rhythm. No murmurs, rubs or gallops heard RESPIRATORY: Clear to auscultation. Breath sounds equal bilaterally. No rales , wheezing or rhonchi. Decreased breath sounds at bases ABDOMEN: Distended, protuberant, bowel sounds present and normoactive. Mildly tender on palpation. SPC cath with no surrounding erythema. Urine with sediment EXTREMITIES: BLE spastic, both feet plantar flexed. Bishop UE also spastic. NEUROLOGICAL: Awake. All extremities spastic. PSYCHIATRIC: Cooperative LINE: No evidence of infection Assessment and Plan - Plan Impression Sepsis on admission, resolved UTI, has SPC in place Known MS Bedridden Hx MDRO infections including ESBL+ Recommendation Stop Merem since no MDRO isolated Cipro to complete UTI Rx Change SPC today Clinically doing well from ID standpoint D/W RN
--- NOTE | 2017-12-31 11:05 | P.DS ---
Date of admission: 12/29/17 12:05 Primary care physician: Chris William MD Brief History from admission: Mr. Edmonds is a 37-year-old male with a history of paraplegia, multiple sclerosis who presents to the emergency department from his shelter due to fever. Patient himself cannot elaborate the reasons he came to the hospital for. However, per ER reports, patient had fever as well as foul appearing urine. At the time of this interview, patient is alert and answers questions appropriately. He denies any acute concerns at this point. He denies any chest pain, shortness of breath. He is able to eat well without any difficulty. He denies any dysphagia. On arrival, temperature 103.2F, pulse rate 130, respiration 22. WBC count 17.9 K, creatinine 1.24, BUN 20, random glucose 317, lactic acid 4.7 then 3.3. Urinalysis shows evidence of urinary tract infection. Patient has a history of ESBL Klebsiella UTI. Past medical history: Multiple sclerosis, neurogenic bladder, anxiety/depression , paraplegia. Past surgical history: Bilateral hip ulcer debridement, suprapubic catheter placement. Social history: Denies using tobacco or alcohol. Family history: No significant medical history in parents. DS: Medications - Discharge Medications Prescriptions: ciprofloxacin HCl 750 mg PO Q12HR #24 tab DS: Summary Hospital Course: Patient was admitted, started on IV fluids and antibiotics for sepsis. Blood cultures and urine cultures were ultimately negative. Fever had resolved. Infectious disease have been consulted to help co-manage antibiotics. The patient was back to his baseline tolerating p.o. intake. Patient has met maximal benefit from hospitalization is clinically stable for discharge. Patient is to have his suprapubic catheter exchanged at his custodial facility as the one he has right now does not have an available appropriate substitute at the hospital. Addendum: Pt was charted as wearing oxygen 2-3 L, however, this likely supplementary as opposed to necessary to maintain sats. [facility] and arrived to facility later today, affirmed that the patient was saturating at 97% on room air. - Time Spent with Patient Total time spent providing and/or coordinating discharge services: Less than 30 minutes - Quality: VTE Deep Vein Thrombosis/Pulmonary Embolism Present on Admission: No Exam Vital signs: Vital Signs 12/30/17 12:00 12/30/17 16:00 12/30/17 20:00 Temperature 98.5 F 97.9 F 97.7 F Pulse Rate 112 H 100 H 86 Respiratory Rate 20 20 18 Blood Pressure 107/65 105/63 110/83 Pulse Oximetry 96 97 100 12/31/17 00:00 12/31/17 04:00 12/31/17 08:00 Temperature 98.6 F 97.9 F 97.8 F Pulse Rate 89 93 H 81 Respiratory Rate 18 18 18 Blood Pressure 131/72 111/65 108/66 Pulse Oximetry 99 98 94 L Intake & Output 12/30/17 12/31/17 12/31/17 18:59 06:59 18:59 Intake Total 1388 / 1388 1049 / 1049 Output Total 575 / 575 600 / 600 Balance 813 / 813 449 / 449 Weight 87.6 kg Intake: IV 908 / 908 1049 / 1049 NS Inj 1,000 ML @ 100 mls/hr IV 708 / 708 849 / 849 .CONT .Q10H [facility] Rx#:[id number] Merrem Inj 1,000 MG In NS Inj 200 / 200 200 / 200 100 ML @ 200 mls/hr IV.SIG Q8H [facility] Rx#:[id number] Oral 480 / 480 Output: Urine 575 / 575 Urine Amount (Catheter) 600 / 600 Suprapubic 600 / 600 Other: Date of Last Bowel Movement 12/30/17 12/29/17 # Incontinent Bowel Movements 2 Narrative: Clear lungs bilaterally, unlabored breathing Awake, interactive, no acute distress, oriented, insight intact towards hospitalization Results Procedures completed during hospitalization: . Labs on day of discharge: Preliminary micro results at discharge 12/29/17 07:33 Aerobic Blood Culture - Preliminary Blood - Peripheral No growth in 2 days Anaerobic Blood Culture - Preliminary No growth in 2 days 12/29/17 07:28 Aerobic Blood Culture - Preliminary Blood - Peripheral No growth in 2 days Anaerobic Blood Culture - Preliminary No growth in 2 days - Impressions ITS Impressions Abdomen/Bladder Ultrasound 12/29/17 00:00 CONCLUSION: No evidence of hydronephrosis. Chest X-Ray 12/29/17 07:13 CONCLUSION: 1. Minimal bibasilar airspace disease, likely atelectasis. 2. Moderate gaseous distention of the stomach. Abdomen X-Ray 12/30/17 00:00 CONCLUSION: 1. Nonobstructive bowel gas pattern with some air distention of the colon. 2. Osteoarthritic changes in both hips. Discharge Plan - Discharge Disposition Patient Disposition: Discharge to SNF - Discharge Condition Condition: Stable - Discharge Order Discharge Orders: Discharge Order (Routine); Ordered 12/31/17 Ordered By: Dayday Laughlin - Physicians Team Primary Care Provider: Chris William Attending Provider: Dayday Laughlin Other Providers: Siobhan Munson MD ; [employer],Insurance ; [facility],Agency
[2017-12-31] MEDS: Enoxaparin Inj 40 MG/0.4 ML Syringe SQ SCH (11:47)
[2017-12-31 12:43] VITALS: PULSE 93; RESP 20; TEMP 98.1; O2SAT 92
[2017-12-31 12:55] VITALS: BP 112/71
== END 2017-12-31 14:27 ==
LOC: NEPE 07:11 → NEDA 12:05 → N04 16:50
PROVIDERS: ADMIT Hospitalist; ATTEND Hospitalist

== ENCOUNTER 2018-01-21 08:38 | Inpatient (IN) ==
[2018-01-21] MEDS ORDERED: Vancomycin Inj 1,000 MG in Sodium Chlor 0.9% Inj 250 ML IV.SIG ONE (08:48)
[2018-01-21] MEDS ORDERED: Piperacil/Tazo 3.375 GM Premix 50 ML IV.SIG ONE (08:48)
[2018-01-21] MEDS ORDERED: Sod Chloride 0.9% Inj 1,000 ML IV.SIG SCH (09:00)
--- NOTE | 2018-01-21 09:07 | XR ---
EXAM DATE: 01/21/2018 9:01 AM EST AGE/SEX: 37 years / Male INDICATIONS: Fever and shortness of breath. CLINICAL DATA: This is the patient's initial encounter. Patient reports that signs and symptoms have been present for 1 day and indicates a pain score of 5/10. MEDICAL/SURGICAL HISTORY: Hepatitis. Multiple sclerosis. None. COMPARISON: [facility] [place], CHEST 1V SINGLE AP, 12/29/2017. . FINDINGS: A single AP view of the chest demonstrates the lungs to be symmetrically aerated without evidence of mass, infiltrate or effusion. The cardiomediastinal contours are unremarkable. Osseous structures a re intact. CONCLUSION: No acute cardiopulmonary findings. The small areas of atelectasis in the lung bases seen on previous have resolved. Electronically signed by: Ilya Egan MD 01/21/2018 9:05 AM EST
[2018-01-21 09:16] LABS: ABG Base Excess -0.4 mmol/L (-2-2); ABG PCO2 41 mmHg (38-42); ABG PO2 99 mmHg (61-120)
[2018-01-21 10:27] LABS: Baso % (Auto) 0.1 % (0.0-2.0); Hematocrit 42.9 % (39.0-51.0); Hemoglobin 13.7 gm/dL (13.0-17.0); Lymph # (Auto) 1.1 th/mm3 (1.0-4.8); Lymph % (Auto) 6.6 % (9.0-44.0); Mean Corpuscular HGB Conc 31.9 % (32.0-36.0); Mean Corpuscular Hemoglobin 26.4 pg (27.0-34.0); Mean Corpuscular Volume 82.8 fL (80.0-100.0); Mean Platelet Volume 8.8 fL (7.0-11.0); Mono # (Auto) 0.6 th/mm3 (0.0-0.9); Mono % (Auto) 3.5 % (0.0-8.0); Neut % (Auto) 89.8 % (16.0-70.0); Platelet Count 355 th/mm3 (150-450); Red Blood Count 5.19 mil/mm3 (4.50-5.90); Red Cell Distribution Width 14.2 % (11.6-17.2); White Blood Count 16.7 th/mm3 (4.0-11.0)
[2018-01-21 10:32] LABS: Bacteria,Urine Many /hpf; Bilirubin,Urine Negative (Negative); Clarity,Urine Hazy (Clear); Color,Urine Yellow (Yellw/Straw); Glucose,Urine (UA) 150 mg/dL (Negative); Leukocyte Esterase,Urine Large (Negative); Nitrite,Urine Positive (Negative); Specific Gravity,Urine 1.021 (1.002-1.035)
[2018-01-21 10:39] LABS: Activated Partial Thrombo Time 32.4 sec (23.4-31.7); INR 1.1 Ratio; Prothrombin Time 10.9 sec (9.8-11.6)
[2018-01-21 10:47] LABS: Alanine Aminotransferase 21 U/L (12-78); Albumin 3.1 g/dL (3.4-5.0); Anion Gap 12 meq/L (5-15); Aspartate Aminotransferase 15 U/L (15-37); Blood Urea Nitrogen 14 mg/dL (7-18); Calcium 7.9 mg/dL (8.5-10.1); Chloride 103 meq/L (98-107); Glomerular Filtration Rate Greater Than 89 mL/min (>89); Glucose,Random 212 mg/dL (74-106); Lipase 29 U/L (73-393); Magnesium 1.7 mg/dL (1.5-2.5); Potassium 3.8 meq/L (3.5-5.1); Sodium 139 meq/L (136-145)
[2018-01-21 10:52] LABS: Alkaline Phosphatase 148 U/L (45-117); Total Protein 7.3 g/dL (6.4-8.2)
[2018-01-21] MEDS ORDERED: Sod Chloride 0.9% Inj 1,000 ML IV.SIG ONE (11:12)
--- NOTE | 2018-01-21 12:05 | CT ---
EXAM DATE: 01/21/2018 11:53 AM EST AGE/SEX: 37 years / Male INDICATIONS: Abdominal pain and distention. Low urine output. CLINICAL DATA: This is the patient's initial encounter. Patient reports that signs and symptoms have been present for 1 day and indicates a pain score of 4/10. MEDICAL/SURGICAL HISTORY: Hepatitis C. Multiple sclerosis. Paraplegia None. ORAL CONTRAST: No oral contrast ingested. RADIATION DOSE: 19.87 CTDI (mGy) COMPARISON: . TECHNIQUE: Multiple contiguous axial images were obtained through the abdomen and pelvis following b olus infusion of 88 ml Omnipaque 350 (iohexol) nonionic water-soluble contrast as a single exam dos e. No oral contrast ingested. Using automated exposure control and adjustment of the mA and/or kV ac cording to patient size, radiation dose was kept as low as reasonably achievable to obtain optimal di agnostic quality images. DICOM format image data is available electronically for review and comparis on. FINDINGS: The examination demonstrates mild atelectatic changes in the lung bases. There is no significant pleu ral effusion. The appearance of the liver, spleen, pancreas, adrenal glands and kidneys is within normal limits. The examination demonstrates gaseous distention of the stomach and the colon. The small bowel is rela tively unremarkable in appearance. Distally, there is a large amount of inspissated stool involving t he descending colon, the sigmoid and rectum suggesting impaction. The abdominal aorta is normal in caliber. There is no retroperitoneal lymphadenopathy. No iliac or in guinal adenopathy is seen. Note is made of a suprapubic catheter. There are degenerative changes throughout the spine. CONCLUSION: 1. There is a large amount of stool in the distal descending colon, the sigmoid and the rectum. Ther e is significant distention. The exam would suggest fecal impaction. 2. There is an indwelling suprapubic catheter. 3. There is no hydronephrosis. Electronically signed by: Ilya Egan MD 01/21/2018 12:04 PM EST
[2018-01-21] MEDS ORDERED: Acetaminophen 325 MG Tablet PO PRN (13:11)
[2018-01-21] MEDS ORDERED: Bisacodyl 10 MG Supp RECTAL PRN (13:12)
--- NOTE | 2018-01-21 13:23 | P.HPIM ---
History of Present Illness Primary Care Physician: Chris William MD Chief Complaint: nausea History of Present Illness: patient is a 37 y/o male with history of MS, s/p suprapubic catheter placement, assisted resident, who was brought to ER with nausea. he was admitted to this hospital and discharged to SNF about three weeks ago after he was treated for UTI. he says that he finished ten-day course of Cipro after he was released from the hospital. he says that he started to have nausea last night. he had one small episode of emesis. he says that his urine catheter was changed yesterday. he denies any fever, chills. but had mild epigastric pain. he says that he had a BM last night and also one small BM earlier today. 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 Medical History: Medical History (Last Reviewed 01/21/18 @ 13:19 by Cassie Kenney MD) Suprapubic catheter Anxiety Blind Hepatitis C Insomnia Multiple sclerosis Paraplegia Suprapubic catheter - Family History Family History: Family History (Last Updated 01/21/18 @ 13:19 by Cassie Kenney MD) Other No pertinent family history - Tobacco History Second Hand Smoke Exposure: No Smoking Status: Unknown if ever smoked Tobacco Type: Cigarettes - Alcohol History How Often Do You Have a Drink Containing Alcohol: Never - Substance Use History Substance History: No History of Abuse - Travel History Recent Travel in the [place] Within the Last 8 Weeks: No Recent Travel Out of the Country Within the Last 8 Weeks: No - Immunization History Tetanus Immunization: <5 Years Medications and Allergies Active Medications: Active Medications Acetaminophen (Tylenol) 650 mg PO Q4H PRN PRN Reason: fever/pain Baclofen (Lioresal) 20 mg PO Q8HR [facility] Bisacodyl (Dulcolax Supp) 10 mg RECTAL DAILY PRN PRN Reason: Constipation Citalopram Hydrobromide (Celexa) 20 mg PO DAILY [facility] Clonazepam (Klonopin) 1 mg PO BID [facility] Docusate Sodium (Colace) 100 mg PO BID [facility] Gabapentin (Neurontin) 400 mg PO Q6H [facility] Sodium Chloride (Ns Inj) 1,000 mls @ 0 mls/hr IV.SIG .Q0M [facility] Sodium Chloride (Ns Inj) 1,000 mls @ 125 mls/hr IV.CONT .Q8H [facility] Piperacillin/Tazobactam/Dextrose (Zosyn 3.375 Gm Premix) 50 mls @ 100 mls/hr IV.SIG Q8H [facility] Loratadine (Claritin) 10 mg PO DAILY [facility] Non-Formulary Medication (Melatonin [Melatonin]) 3 mg PO HS [facility] Ondansetron HCl (Zofran Inj) 4 mg IV.PUSH Q8H PRN PRN Reason: nausea Oxybutynin Chloride (Ditropan) 5 mg PO BID [facility] Allergies Allergy/AdvReac Type Severity Reaction Status Date / Time No Known Allergies Allergy Verified 01/21/18 08:45 Home Medications Medication Instructions Recorded Confirmed Type bisacodyl [Dulcolax (bisacodyl)] 5 mg PO DAILY 12/29/17 01/21/18 History bisacodyl [Dulcolax (bisacodyl)] 10 mg [place] DAILY PRN 12/29/17 01/21/18 History citalopram [Celexa] 20 mg PO DAILY 12/29/17 01/21/18 History clonazepam 1 mg PO BID 12/29/17 01/21/18 History docusate sodium [Colace] 100 mg PO BID 12/29/17 01/21/18 History gabapentin 400 mg PO Q6H 12/29/17 01/21/18 History ketoconazole 1 applic TOPICAL MOTH 12/29/17 01/21/18 History loratadine 10 mg PO DAILY 12/29/17 01/21/18 History melatonin 3 mg PO HS 12/29/17 01/21/18 History oxybutynin chloride 5 mg PO BID 12/29/17 01/21/18 History triamcinolone acetonide 1 applic TOPICAL DAILY 12/29/17 01/21/18 History potassium chloride 20 meq PO DAILY 01/21/18 01/21/18 History Exam Vital signs: Vital Signs 01/21/18 08:51 01/21/18 08:54 01/21/18 09:54 Temperature 98.9 F Pulse Rate 130 H 120 H 116 H Respiratory Rate 30 H 18 18 Blood Pressure 132/82 132/82 130/76 Pulse Oximetry 96 98 98 01/21/18 13:00 Temperature Pulse Rate 122 H Respiratory Rate 18 Blood Pressure 139/80 Pulse Oximetry 98 Intake & Output 01/20/18 01/21/18 01/21/18 18:59 06:59 18:59 Intake Total 1300 / 1300 Balance 1300 / 1300 Weight 81.647 kg Intake: IV 1300 / 1300 Zosyn 3.375 GM Premix 50 ML @ 50 / 50 100 mls/hr IV.SIG ONCE ONE Rx#: [id number] NS Inj 1,000 ML @ Wide Open IV. 1000 / 1000 SIG BOLUS ONE Rx#:[id number] Vancomycin Inj 1,000 MG In NS 250 / 250 Inj 250 ML @ 250 mls/hr IV.SIG ONCE ONE Rx#:[id number] - Constitutional no acute distress - Routine HEENT Exam Eye: Present: PERRL - Routine Neck Exam Present: supple - Routine Respiratory Exam Present: CTA bilaterally - Routine Cardiovascular Exam Present: tachycardia - Routine Abdominal Exam Present: soft, distended - Routine Extremities Exam Comments: no pedal edema. - Routine Neurological Exam Present: alert, oriented X3 Results - Labs CBC & Chem 7: 01/21/18 09:15 01/21/18 09:15 Labs: Short CBC 01/21/18 Range/Units 09:15 WBC 16.7 H (4.0-11.0) th/mm3 Hgb 13.7 (13.0-17.0) gm/dL Hct 42.9 (39.0-51.0) % Plt Count 355 D (150-450) th/mm3 BMP 01/21/18 09:15 Sodium 139 Potassium 3.8 Chloride 103 Carbon Dioxide 24.0 BUN 14 Creatinine 0.91 Calcium 7.9 L Cardiac Enzymes 01/21/18 Range/Units 09:15 Troponin I Less than 0.02 L (0.02-0.05) ng/mL Liver Function 01/21/18 Range/Units 09:15 Total Bilirubin 0.2 (0.2-1.0) mg/dL AST 15 (15-37) U/L ALT 21 (12-78) U/L Alkaline Phosphatase 148 H (45-117) U/L Albumin 3.1 L (3.4-5.0) g/dL Urine 01/21/18 Range/Units 09:30 Urine Color Yellow (Yellw/Straw) Urine Clarity Hazy H (Clear) Urine pH 6.0 (5.0-8.5) Ur Specific [place] 1.021 (1.002-1.035) Urine Protein Negative (Neg-Trace) mg/dL Urine Glucose (UA) 150 H (Negative) mg/dL - Imaging Impressions Abdomen/Pelvis CT 01/21/18 08:41 CONCLUSION: 1. There is a large amount of stool in the distal descending colon, the sigmoid and the rectum. There is significant distention. The exam would suggest fecal impaction. 2. There is an indwelling suprapubic catheter. 3. There is no hydronephrosis. Chest X-Ray 01/21/18 08:41 CONCLUSION: No acute cardiopulmonary findings. The small areas of atelectasis in the lung bases seen on previous have resolved. Caprini VTE Risk Assessment Caprini VTE Risk Assessment: Moderate/High Risk (score >= 2) Caprini Risk Assessment Model: Point Value = 1 Point Value = 2 Point Value = 3 Point Value = 5 Age 41-60 Minor surgery BMI > 25 kg/m2 Swollen legs Varicose veins or History of unexplained or recurrent spontaneous Oral contraceptives or hormone replacement Sepsis (< 1 month) Serious lung disease, including pneumonia (< 1 month) Abnormal pulmonary function Acute myocardial infarction Congestive heart failure (< 1 month) History of inflammatory bowel disease Medical patient at bed rest Age 61-74 Arthroscopic surgery Major open surgery (> 45 min) Laparoscopic surgery (> 45 min) Malignancy Confined to bed (> 72 hours) Immobilizing plaster cast Central venous access Age >= 75 History of VTE Family history of VTE Factor V Leiden Prothrombin [id number] Lupus anticoagulant Anticardiolipin antibodies Elevated serum homocysteine Heparin-induced thrombocytopenia Other congenital or acquired thrombophilia Stroke (< 1 month) Elective arthroplasty Hip, pelvis, or leg fracture Acute spinal cord injury (< 1 month) Prophylaxis Regimen: Total Risk Factor Score Risk Level Prophylaxis Regimen 0-1 Low Early ambulation 2 Moderate Order ONE of the following: *Sequential Compression Device (SCD) *Heparin 5000 units SQ BID 3-4 Higher Order ONE of the following medications: *Heparin 5000 units SQ TID *Enoxaparin/Lovenox 40 mg SQ daily (WT < 150 kg, CrCl > 30 mL/min) *Enoxaparin/Lovenox 30 mg SQ daily (WT < 150 kg, CrCl > 10-29 mL/min) *Enoxaparin/Lovenox 30 mg SQ BID (WT < 150 kg, CrCl > 30 mL/min) AND/OR *Sequential Compression Device (SCD) 5 or more Highest Order ONE of the following medications: *Heparin 5000 units SQ TID (Preferred with Epidurals) *Enoxaparin/Lovenox 40 mg SQ daily (WT < 150 kg, CrCl > 30 mL/min) *Enoxaparin/Lovenox 30 mg SQ daily (WT < 150 kg, CrCl > 10-29 mL/min) *Enoxaparin/Lovenox 30 mg SQ BID (WT < 150 kg, CrCl > 30 mL/min) AND *Sequential Compression Device (SCD) Assessment and Plan - Plan A/P - sepsis due to recurrent UTI continue with IV Zosyn- will follow the cultures- consult ID-suprapubic catheter was reportedly changed yesterday. continue with IV fluid. -abdominal distention/ fecal impaction keep NPO for now and continue IV fluid and laxatives; consult GI. -MS continue with muscle relaxant- consult PT -DVT prophylaxis with subq Lovenox Discussed Condition With: ER physician and the patient. Discharge Planning: SNF when stable.
[2018-01-21] MEDS: Gabapentin 400 MG Capsule PO SCH ×2 (15:43→23:31)
[2018-01-21] MEDS: Sod Chloride 0.9% Inj 1,000 ML IV.CONT SCH ×2 (15:43→23:30)
--- NOTE | 2018-01-21 17:41 | P.CONID ---
History of Present Illness Service: Infectious disease Consult date: 01/21/18 Requesting Physician: Cassie Kenney Reason for Consult: Evaluation and management of possible recurrent cystitis Primary Care Provider: Chris William MD Chief Complaint: nausea History of Present Illness: Mr. Rosemary Mejia is a 37-year-old male with a past medical history significant for multiple sclerosis who is bedbound and as well as a jail resident. Patient has a long-term suprapubic catheter that is changed every month. He reports that the catheter was changed yesterday. It appears that patient was recently admitted and seen by infectious disease and discharged on oral Cipro. Patient reports nausea the night prior to admission with one small episode of emesis. He denies any fever or chills. He does have mild epigastric pain he reports he had a BM and denies any constipation. Infectious diseases consulted for evaluation and management of possible recurrent cystitis. 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 - Medical History Medical History: Medical History (Last Reviewed 01/21/18 @ 14:47 by Gisel Cooley PT) Suprapubic catheter Anxiety Blind Hepatitis C Insomnia Multiple sclerosis Paraplegia Suprapubic catheter - Family History Family History: Family History (Last Reviewed 01/21/18 @ 14:47 by Gisel Cooley PT) Other No pertinent family history - Tobacco History Second Hand Smoke Exposure: No Smoking Status: Unknown if ever smoked Tobacco Type: Cigarettes - Alcohol History How Often Do You Have a Drink Containing Alcohol: Never - Substance Use History Substance History: No History of Abuse - Travel History Recent Travel in the [place] Within the Last 8 Weeks: No Recent Travel Out of the Country Within the Last 8 Weeks: No - Immunization History Tetanus Immunization: <5 Years Medications and Allergies Active Medications: Active Medications Acetaminophen (Tylenol) 650 mg PO Q4H PRN PRN Reason: fever/pain Baclofen (Lioresal) 20 mg PO Q8HR [facility] Last Admin: 01/21/18 16:31 Dose: 20 mg Bisacodyl (Dulcolax Supp) 10 mg RECTAL DAILY PRN PRN Reason: Constipation Citalopram Hydrobromide (Celexa) 20 mg PO DAILY [facility] Clonazepam (Klonopin) 1 mg PO BID [facility] Docusate Sodium (Colace) 100 mg PO BID [facility] Gabapentin (Neurontin) 400 mg PO Q6H [facility] Last Admin: 01/21/18 15:43 Dose: 400 mg Sodium Chloride (Ns Inj) 1,000 mls @ 0 mls/hr IV.SIG .Q0M [facility] Sodium Chloride (Ns Inj) 1,000 mls @ 125 mls/hr IV.CONT .Q8H [facility] Last Admin: 01/21/18 15:43 Dose: 125 mls/hr Piperacillin/Tazobactam/Dextrose (Zosyn 3.375 Gm Premix) 50 mls @ 100 mls/hr IV.SIG Q8H [facility] Loratadine (Claritin) 10 mg PO DAILY [facility] Melatonin (Melatonin) 2.5 mg PO HS [facility] Miscellaneous (Pill Splitter) 1 each OTHER UNSCH PRN PRN Reason: SEE LABEL COMMENTS Ondansetron HCl (Zofran Inj) 4 mg IV.PUSH Q8H PRN PRN Reason: nausea Last Admin: 01/21/18 16:41 Dose: 4 mg Oxybutynin Chloride (Ditropan) 5 mg PO BID [facility] Allergies Allergy/AdvReac Type Severity Reaction Status Date / Time No Known Allergies Allergy Verified 01/21/18 08:45 Home Medications Medication Instructions Recorded Confirmed Type bisacodyl [Dulcolax (bisacodyl)] 5 mg PO DAILY 12/29/17 01/21/18 History bisacodyl [Dulcolax (bisacodyl)] 10 mg [place] DAILY PRN 12/29/17 01/21/18 History citalopram [Celexa] 20 mg PO DAILY 12/29/17 01/21/18 History clonazepam 1 mg PO BID 12/29/17 01/21/18 History docusate sodium [Colace] 100 mg PO BID 12/29/17 01/21/18 History gabapentin 400 mg PO Q6H 12/29/17 01/21/18 History ketoconazole 1 applic TOPICAL MOTH 12/29/17 01/21/18 History loratadine 10 mg PO DAILY 12/29/17 01/21/18 History melatonin 3 mg PO HS 12/29/17 01/21/18 History oxybutynin chloride 5 mg PO BID 12/29/17 01/21/18 History triamcinolone acetonide 1 applic TOPICAL DAILY 12/29/17 01/21/18 History potassium chloride 20 meq PO DAILY 01/21/18 01/21/18 History Exam Vital signs: Vital Signs 01/21/18 08:41 01/21/18 08:51 01/21/18 08:54 Temperature 98.9 F Pulse Rate 130 H 120 H Respiratory Rate 30 H 18 Blood Pressure 132/82 132/82 Pulse Oximetry 98 96 98 01/21/18 09:54 01/21/18 13:00 01/21/18 13:10 Temperature Pulse Rate 116 H 122 H 110 H Respiratory Rate 18 18 20 Blood Pressure 130/76 139/80 133/86 Pulse Oximetry 98 98 01/21/18 15:00 Temperature Pulse Rate 108 H Respiratory Rate 20 Blood Pressure 133/86 Pulse Oximetry 98 Intake & Output 01/20/18 01/21/18 01/21/18 18:59 06:59 18:59 Intake Total 1300 / 1300 Balance 1300 / 1300 Weight 81.647 kg Intake: IV 1300 / 1300 Zosyn 3.375 GM Premix 50 ML @ 50 / 50 100 mls/hr IV.SIG ONCE ONE Rx#: [id number] NS Inj 1,000 ML @ Wide Open IV. 1000 / 1000 SIG BOLUS ONE Rx#:[id number] Vancomycin Inj 1,000 MG In NS 250 / 250 Inj 250 ML @ 250 mls/hr IV.SIG ONCE ONE Rx#:[id number] Narrative: GENERAL: Well-nourished well-developed, not in acute distress SKIN: Cool and dry, no generalized rash HEAD: Atraumatic. Normocephalic. No temporal or scalp tenderness. EYES: Pupils equal round and reactive. Scleral icterus. No injection or drainage. No petechia ENT: Nothing abnormal detected NECK: Trachea midline. Supple, nontender, no meningeal signs. CARDIOVASCULAR: HS audible. RESPIRATORY: Clear to auscultation bilaterally. GASTROINTESTINAL: Abdomen soft nontender. Suprapubic catheter site with no evidence of infection, nontender. MUSCULOSKELETAL: Extremities without clubbing, cyanosis. NEUROLOGICAL: Bilateral lower extremity with contractures and no movement. Bilateral upper extremity with no movement. Speech fairly okay. Psych cooperative IV line sites ok. Results - Labs CBC & Chem 7: 01/21/18 09:15 01/21/18 09:15 Labs: Laboratory Results - last 24 hr 1101/21/18 01/21/18 09:07 09:15 09:15 WBC 16.7 H RBC 5.19 Hgb 13.7 Hct 42.9 MCV 82.8 MCH 26.4 L MCHC 31.9 L RDW 14.2 Plt Count 355 D MPV 8.8 Neut % (Auto) 89.8 H Lymph % (Auto) 6.6 L [place] % (Auto) 3.5 Eos % (Auto) 0.0 Baso % (Auto) 0.1 Neut # (Auto) 15.0 H Lymph # (Auto) 1.1 [place] # (Auto) 0.6 Eos # (Auto) 0.0 Baso # (Auto) 0.0 WBC Differential . Differential Comment Auto diff final PT 10.9 INR 1.1 APTT 32.4 H Puncture Site Left radial Patient Temperature 98.6 O2 Saturation 96 ABG pH 7.39 ABG pCO2 41 ABG pO2 99 ABG HCO3 24 ABG O2 Content 17.3 ABG Base Excess -0.4 ABG Methemoglobin 0.6 [place] Test Present Hemoglobin 12.7 Carboxyhemoglobin 1.1 Liter Flow 3.00 Critical Value No Sodium Potassium Chloride Carbon Dioxide Anion Gap BUN Creatinine Estimated GFR Random Glucose Lactic Acid Calcium Magnesium Total Bilirubin AST ALT Alkaline Phosphatase Troponin I Total Protein Albumin Lipase Urine Color Urine Clarity Urine pH Ur Specific [place] Urine Protein Urine Glucose (UA) Urine Ketones Urine Occult Blood Urine Nitrate Urine Bilirubin Urine Urobilinogen Ur Leukocyte Esterase Urine RBC Urine WBC Urine Bacteria Ur Microscopic Review 01/21/18 01/21/18 01/21/18 09:15 09:15 09:30 WBC RBC Hgb Hct MCV MCH MCHC RDW Plt Count MPV Neut % (Auto) Lymph % (Auto) [place] % (Auto) Eos % (Auto) Baso % (Auto) Neut # (Auto) Lymph # (Auto) [place] # (Auto) Eos # (Auto) Baso # (Auto) WBC Differential Differential Comment PT INR APTT Puncture Site Patient Temperature O2 Saturation ABG pH ABG pCO2 ABG pO2 ABG HCO3 ABG O2 Content ABG Base Excess ABG Methemoglobin [place]io Test Hemoglobin Carboxyhemoglobin Liter Flow Critical Value Sodium 139 Potassium 3.8 Chloride 103 Carbon Dioxide 24.0 Anion Gap 12 BUN 14 Creatinine 0.91 Estimated GFR Greater than 89 Random Glucose 212 H Lactic Acid 4.3 H* Calcium 7.9 L Magnesium 1.7 Total Bilirubin 0.2 AST 15 ALT 21 Alkaline Phosphatase 148 H Troponin I Less than 0.02 L Total Protein 7.3 Albumin 3.1 L Lipase 29 L Urine Color Yellow Urine Clarity Hazy H Urine pH 6.0 Ur Specific [place] 1.021 Urine Protein Negative Urine Glucose (UA) 150 H Urine Ketones Trace H Urine Occult Blood Small H Urine Nitrate Positive H Urine Bilirubin Negative Urine Urobilinogen Less than 2 Ur Leukocyte Esterase Large H Urine RBC 15 H Urine WBC Urine Bacteria Many H Ur Microscopic Review Not Reportable 01/21/18 15:20 WBC RBC Hgb Hct MCV MCH MCHC RDW Plt Count MPV Neut % (Auto) Lymph % (Auto) [place] % (Auto) Eos % (Auto) Baso % (Auto) Neut # (Auto) Lymph # (Auto) [place] # (Auto) Eos # (Auto) Baso # (Auto) WBC Differential Differential Comment PT INR APTT Puncture Site Patient Temperature O2 Saturation ABG pH ABG pCO2 ABG pO2 ABG HCO3 ABG O2 Content ABG Base Excess ABG Methemoglobin [place] Test Hemoglobin Carboxyhemoglobin Liter Flow Critical Value Sodium Potassium Chloride Carbon Dioxide Anion Gap BUN Creatinine Estimated GFR Random Glucose Lactic Acid 1.5 Calcium Magnesium Total Bilirubin AST ALT Alkaline Phosphatase Troponin I Total Protein Albumin Lipase Urine Color Urine Clarity Urine pH Ur Specific [place] Urine Protein Urine Glucose (UA) Urine Ketones Urine Occult Blood Urine Nitrate Urine Bilirubin Urine Urobilinogen Ur Leukocyte Esterase Urine RBC Urine WBC Urine Bacteria Ur Microscopic Review - Imaging Impressions Abdomen/Pelvis CT 01/21/18 08:41 CONCLUSION: 1. There is a large amount of stool in the distal descending colon, the sigmoid and the rectum. There is significant distention. The exam would suggest fecal impaction. 2. There is an indwelling suprapubic catheter. 3. There is no hydronephrosis. Chest X-Ray 01/21/18 08:41 CONCLUSION: No acute cardiopulmonary findings. The small areas of atelectasis in the lung bases seen on previous have resolved. Assessment and Plan - Plan Rule out sepsis Possible cystitis Suprapubic catheter in place Multiple sclerosis Bedbound status Prior ESBL urinary tract infection Recommendations Continue Zosyn IV for now If overnight any clinical change in condition consider starting meropenem IV as patient prior history of ESBL. Follow cultures Follow clinical course covering for mi.
--- NOTE | 2018-01-21 18:25 | P.CONGI ---
History of Present Illness Consult date: 01/21/18 Consult reason: Multiple sclerosis/paraplegia Abdominal distention Fecal impaction Chief complaint: UTI, Severe sepsis History of Present Illness: This patient is a 37-year-old male with history of multiple sclerosis, suprapubic catheter placement, hepatitis C, paraplegia, anxiety and blindness. Patient is a resident of a nursing home facility who was brought to the ER at [facility] with report of nausea. Patient denies vomiting. Patient denies any fever or chills. Upon consultation, patient states that he had a moderately sized soft bowel movement yesterday. He denies any further nausea or abdominal pain. He denies being informed of any noted blood in his stool. States he has never had an EGD or colonoscopy in the past. Our service has been consulted to evaluate patient for fecal impaction. CT revealed large amount of stool in distant colon sigmoid colon and rectum with significant distention. <Katt Irwin - Last Filed: 01/21/18 18:16> Review of Systems All other systems reviewed negative except as stated in HPI <Katt Irwin - Last Filed: 01/21/18 18:16> PMFSH - History History Provided By: Patient, Bonbon Dipper / EMT - Medical History Medical History: Medical History (Last Reviewed 01/21/18 @ 14:47 by Gisel Cooley PT) Suprapubic catheter Anxiety Blind Hepatitis C Insomnia Multiple sclerosis Paraplegia Suprapubic catheter - Family History Family History: Family History (Last Reviewed 01/21/18 @ 14:47 by Gisel Cooley PT) Other No pertinent family history - Tobacco History Second Hand Smoke Exposure: No Smoking Status: Unknown if ever smoked Tobacco Type: Cigarettes - Alcohol History How Often Do You Have a Drink Containing Alcohol: Never - Substance Use History Substance History: No History of Abuse - Travel History Recent Travel in the [place] Within the Last 8 Weeks: No Recent Travel Out of the Country Within the Last 8 Weeks: No - Immunization History Tetanus Immunization: <5 Years <Katt Irwin - Last Filed: 01/21/18 18:16> - Medical History Medical History: Medical History (Last Reviewed 01/21/18 @ 14:47 by Gisel Cooley PT) Suprapubic catheter Anxiety Blind Hepatitis C Insomnia Multiple sclerosis Paraplegia Suprapubic catheter - Family History Family History: Family History (Last Reviewed 01/21/18 @ 14:47 by Gisel Cooley PT) Other No pertinent family history <Brock Crandall - Last Filed: 01/21/18 19:17> Medications and Allergies Active Medications: Active Medications Acetaminophen (Tylenol) 650 mg PO Q4H PRN PRN Reason: fever/pain Baclofen (Lioresal) 20 mg PO Q8HR [facility] Last Admin: 01/21/18 16:31 Dose: 20 mg Bisacodyl (Dulcolax Supp) 10 mg RECTAL DAILY PRN PRN Reason: Constipation Citalopram Hydrobromide (Celexa) 20 mg PO DAILY [facility] Clonazepam (Klonopin) 1 mg PO BID [facility] Docusate Sodium (Colace) 100 mg PO BID [facility] Gabapentin (Neurontin) 400 mg PO Q6H [facility] Last Admin: 01/21/18 15:43 Dose: 400 mg Sodium Chloride (Ns Inj) 1,000 mls @ 0 mls/hr IV.SIG .Q0M [facility] Sodium Chloride (Ns Inj) 1,000 mls @ 125 mls/hr IV.CONT .Q8H [facility] Last Admin: 01/21/18 15:43 Dose: 125 mls/hr Piperacillin/Tazobactam/Dextrose (Zosyn 3.375 Gm Premix) 50 mls @ 100 mls/hr IV.SIG Q8H [facility] Loratadine (Claritin) 10 mg PO DAILY [facility] Melatonin (Melatonin) 2.5 mg PO HS [facility] Miscellaneous (Pill Splitter) 1 each OTHER UNSCH PRN PRN Reason: SEE LABEL COMMENTS Ondansetron HCl (Zofran Inj) 4 mg IV.PUSH Q8H PRN PRN Reason: nausea Last Admin: 01/21/18 16:41 Dose: 4 mg Oxybutynin Chloride (Ditropan) 5 mg PO BID [facility] <Katt Irwin - Last Filed: 01/21/18 18:16> Active Medications: Active Medications Acetaminophen (Tylenol) 650 mg PO Q4H PRN PRN Reason: fever/pain Baclofen (Lioresal) 20 mg PO Q8HR [facility] Last Admin: 01/21/18 16:31 Dose: 20 mg Bisacodyl (Dulcolax Supp) 10 mg RECTAL DAILY PRN PRN Reason: Constipation Citalopram Hydrobromide (Celexa) 20 mg PO DAILY [facility] Clonazepam (Klonopin) 1 mg PO BID [facility] Docusate Sodium (Colace) 100 mg PO BID [facility] Gabapentin (Neurontin) 400 mg PO Q6H [facility] Last Admin: 01/21/18 15:43 Dose: 400 mg Sodium Chloride (Ns Inj) 1,000 mls @ 0 mls/hr IV.SIG .Q0M [facility] Sodium Chloride (Ns Inj) 1,000 mls @ 125 mls/hr IV.CONT .Q8H [facility] Last Admin: 01/21/18 15:43 Dose: 125 mls/hr Piperacillin/Tazobactam/Dextrose (Zosyn 3.375 Gm Premix) 50 mls @ 100 mls/hr IV.SIG Q8H [facility] Loratadine (Claritin) 10 mg PO DAILY [facility] Melatonin (Melatonin) 2.5 mg PO HS [facility] Miscellaneous (Pill Splitter) 1 each OTHER UNSCH PRN PRN Reason: SEE LABEL COMMENTS Ondansetron HCl (Zofran Inj) 4 mg IV.PUSH Q8H PRN PRN Reason: nausea Last Admin: 01/21/18 16:41 Dose: 4 mg Oxybutynin Chloride (Ditropan) 5 mg PO BID [facility] <Brock Crandall - Last Filed: 01/21/18 19:17> Allergies Allergy/AdvReac Type Severity Reaction Status Date / Time No Known Allergies Allergy Verified 01/21/18 08:45 Home Medications Medication Instructions Recorded Confirmed Type bisacodyl [Dulcolax (bisacodyl)] 5 mg PO DAILY 12/29/17 01/21/18 History bisacodyl [Dulcolax (bisacodyl)] 10 mg NE DAILY PRN 12/29/17 01/21/18 History citalopram [Celexa] 20 mg PO DAILY 12/29/17 01/21/18 History clonazepam 1 mg PO BID 12/29/17 01/21/18 History docusate sodium [Colace] 100 mg PO BID 12/29/17 01/21/18 History gabapentin 400 mg PO Q6H 12/29/17 01/21/18 History ketoconazole 1 applic TOPICAL MOTH 12/29/17 01/21/18 History loratadine 10 mg PO DAILY 12/29/17 01/21/18 History melatonin 3 mg PO HS 12/29/17 01/21/18 History oxybutynin chloride 5 mg PO BID 12/29/17 01/21/18 History triamcinolone acetonide 1 applic TOPICAL DAILY 12/29/17 01/21/18 History potassium chloride 20 meq PO DAILY 01/21/18 01/21/18 History Exam Vital signs: Vital Signs 01/21/18 08:41 01/21/18 08:51 01/21/18 08:54 Temperature 98.9 F Pulse Rate 130 H 120 H Respiratory Rate 30 H 18 Blood Pressure 132/82 132/82 Pulse Oximetry 98 96 98 01/21/18 09:54 01/21/18 13:00 01/21/18 13:10 Temperature Pulse Rate 116 H 122 H 110 H Respiratory Rate 18 18 20 Blood Pressure 130/76 139/80 133/86 Pulse Oximetry 98 98 01/21/18 15:00 Temperature Pulse Rate 108 H Respiratory Rate 20 Blood Pressure 133/86 Pulse Oximetry 98 Intake & Output 01/20/18 01/21/18 01/21/18 18:59 06:59 18:59 Intake Total 1300 / 1300 Balance 1300 / 1300 Weight 81.647 kg Intake: IV 1300 / 1300 Zosyn 3.375 GM Premix 50 ML @ 50 / 50 100 mls/hr IV.SIG ONCE ONE Rx#: [id number] NS Inj 1,000 ML @ Wide Open IV. 1000 / 1000 SIG BOLUS ONE Rx#:[id number] Vancomycin Inj 1,000 MG In NS 250 / 250 Inj 250 ML @ 250 mls/hr IV.SIG ONCE ONE Rx#:[id number] - Constitutional no acute distress - Routine HEENT Exam Head: Present: normocephalic - Routine Respiratory Exam Absent: accessory muscle use - Routine Cardiovascular Exam Present: S1, S2 - Routine Abdominal Exam Present: soft, distended. Absent: tenderness, guarding, firm Comments: Distant bowel sounds Suprapubic tube present - Routine Extremities Exam Present: edema - Routine Skin Exam Present: dry, warm - Routine Neurological Exam Present: alert, oriented X3 <Irwin,Katt - Last Filed: 01/21/18 18:16> Vital signs: Vital Signs 01/21/18 08:41 01/21/18 08:51 01/21/18 08:54 Temperature 98.9 F Pulse Rate 130 H 120 H Respiratory Rate 30 H 18 Blood Pressure 132/82 132/82 Pulse Oximetry 98 96 98 01/21/18 09:54 01/21/18 13:00 01/21/18 13:10 Temperature Pulse Rate 116 H 122 H 110 H Respiratory Rate 18 18 20 Blood Pressure 130/76 139/80 133/86 Pulse Oximetry 98 98 01/21/18 15:00 Temperature Pulse Rate 108 H Respiratory Rate 20 Blood Pressure 133/86 Pulse Oximetry 98 Intake & Output 01/21/18 01/21/18 01/22/18 06:59 18:59 06:59 Intake Total 1300 / 1300 Balance 1300 / 1300 Weight 81.647 kg Intake: IV 1300 / 1300 Zosyn 3.375 GM Premix 50 ML @ 50 / 50 100 mls/hr IV.SIG ONCE ONE Rx#: [id number] NS Inj 1,000 ML @ Wide Open IV. 1000 / 1000 SIG BOLUS ONE Rx#:[id number] Vancomycin Inj 1,000 MG In NS 250 / 250 Inj 250 ML @ 250 mls/hr IV.SIG ONCE ONE Rx#:[id number] <HemkristinaAmrocky - Last Filed: 01/21/18 19:17> Results - Labs CBC & Chem 7: 01/21/18 09:15 01/21/18 09:15 Labs: Laboratory Results - last 24 hr 01/21/18 01/21/18 01/21/18 09:07 09:15 09:15 WBC 16.7 H RBC 5.19 Hgb 13.7 Hct 42.9 MCV 82.8 MCH 26.4 L MCHC 31.9 L RDW 14.2 Plt Count 355 D MPV 8.8 Neut % (Auto) 89.8 H Lymph % (Auto) 6.6 L Wilkinson % (Auto) 3.5 Eos % (Auto) 0.0 Baso % (Auto) 0.1 Neut # (Auto) 15.0 H Lymph # (Auto) 1.1 Wilkinson # (Auto) 0.6 Eos # (Auto) 0.0 Baso # (Auto) 0.0 WBC Differential . Differential Comment Auto diff final PT 10.9 INR 1.1 APTT 32.4 H Puncture Site Left radial Patient Temperature 98.6 O2 Saturation 96 ABG pH 7.39 ABG pCO2 41 ABG pO2 99 ABG HCO3 24 ABG O2 Content 17.3 ABG Base Excess -0.4 ABG Methemoglobin 0.6 Leoncio Test Present Hemoglobin 12.7 Carboxyhemoglobin 1.1 Liter Flow 3.00 Critical Value No Sodium Potassium Chloride Carbon Dioxide Anion Gap BUN Creatinine Estimated GFR Random Glucose Lactic Acid Calcium Magnesium Total Bilirubin AST ALT Alkaline Phosphatase Troponin I Total Protein Albumin Lipase Urine Color Urine Clarity Urine pH Ur Specific [place] Urine Protein Urine Glucose (UA) Urine Ketones Urine Occult Blood Urine Nitrate Urine Bilirubin Urine Urobilinogen Ur Leukocyte Esterase Urine RBC Urine WBC Urine Bacteria Ur Microscopic Review 01/21/18 01/21/18 01/21/18 09:15 09:15 09:30 WBC RBC Hgb Hct MCV MCH MCHC RDW Plt Count MPV Neut % (Auto) Lymph % (Auto) Wilkinson % (Auto) Eos % (Auto) Baso % (Auto) Neut # (Auto) Lymph # (Auto) Wilkinson # (Auto) Eos # (Auto) Baso # (Auto) WBC Differential Differential Comment PT INR APTT Puncture Site Patient Temperature O2 Saturation ABG pH ABG pCO2 ABG pO2 ABG HCO3 ABG O2 Content ABG Base Excess ABG Methemoglobin Leoncio Test Hemoglobin Carboxyhemoglobin Liter Flow Critical Value Sodium 139 Potassium 3.8 Chloride 103 Carbon Dioxide 24.0 Anion Gap 12 BUN 14 Creatinine 0.91 Estimated GFR Greater than 89 Random Glucose 212 H Lactic Acid 4.3 H* Calcium 7.9 L Magnesium 1.7 Total Bilirubin 0.2 AST 15 ALT 21 Alkaline Phosphatase 148 H Troponin I Less than 0.02 L Total Protein 7.3 Albumin 3.1 L Lipase 29 L Urine Color Yellow Urine Clarity Hazy H Urine pH 6.0 Ur Specific [place] 1.021 Urine Protein Negative Urine Glucose (UA) 150 H Urine Ketones Trace H Urine Occult Blood Small H Urine Nitrate Positive H Urine Bilirubin Negative Urine Urobilinogen Less than 2 Ur Leukocyte Esterase Large H Urine RBC 15 H Urine WBC Urine Bacteria Many H Ur Microscopic Review Not Reportable 01/21/18 15:20 WBC RBC Hgb Hct MCV MCH MCHC RDW Plt Count MPV Neut % (Auto) Lymph % (Auto) Wilkinson % (Auto) Eos % (Auto) Baso % (Auto) Neut # (Auto) Lymph # (Auto) Wilkinson # (Auto) Eos # (Auto) Baso # (Auto) WBC Differential Differential Comment PT INR APTT Puncture Site Patient Temperature O2 Saturation ABG pH ABG pCO2 ABG pO2 ABG HCO3 ABG O2 Content ABG Base Excess ABG Methemoglobin Leoncio Test Hemoglobin Carboxyhemoglobin Liter Flow Critical Value Sodium Potassium Chloride Carbon Dioxide Anion Gap BUN Creatinine Estimated GFR Random Glucose Lactic Acid 1.5 Calcium Magnesium Total Bilirubin AST ALT Alkaline Phosphatase Troponin I Total Protein Albumin Lipase Urine Color Urine Clarity Urine pH Ur Specific [place] Urine Protein Urine Glucose (UA) Urine Ketones Urine Occult Blood Urine Nitrate Urine Bilirubin Urine Urobilinogen Ur Leukocyte Esterase Urine RBC Urine WBC Urine Bacteria Ur Microscopic Review - Imaging Impressions Abdomen/Pelvis CT 01/21/18 08:41 CONCLUSION: 1. There is a large amount of stool in the distal descending colon, the sigmoid and the rectum. There is significant distention. The exam would suggest fecal impaction. 2. There is an indwelling suprapubic catheter. 3. There is no hydronephrosis. Chest X-Ray 01/21/18 08:41 CONCLUSION: No acute cardiopulmonary findings. The small areas of atelectasis in the lung bases seen on previous have resolved. <Katt Irwin - Last Filed: 01/21/18 18:16> - Labs CBC & Chem 7: 01/21/18 09:15 01/21/18 09:15 Labs: Laboratory Results - last 24 hr 01/21/18 01/21/18 01/21/18 09:07 09:15 09:15 WBC 16.7 H RBC 5.19 Hgb 13.7 Hct 42.9 MCV 82.8 MCH 26.4 L MCHC 31.9 L RDW 14.2 Plt Count 355 D MPV 8.8 Neut % (Auto) 89.8 H Lymph % (Auto) 6.6 L Wilkinson % (Auto) 3.5 Eos % (Auto) 0.0 Baso % (Auto) 0.1 Neut # (Auto) 15.0 H Lymph # (Auto) 1.1 Wilkinson # (Auto) 0.6 Eos # (Auto) 0.0 Baso # (Auto) 0.0 WBC Differential . Differential Comment Auto diff final PT 10.9 INR 1.1 APTT 32.4 H Puncture Site Left radial Patient Temperature 98.6 O2 Saturation 96 ABG pH 7.39 ABG pCO2 41 ABG pO2 99 ABG HCO3 24 ABG O2 Content 17.3 ABG Base Excess -0.4 ABG Methemoglobin 0.6 Leoncio Test Present Hemoglobin 12.7 Carboxyhemoglobin 1.1 Liter Flow 3.00 Critical Value No Sodium Potassium Chloride Carbon Dioxide Anion Gap BUN Creatinine Estimated GFR Random Glucose Lactic Acid Calcium Magnesium Total Bilirubin AST ALT Alkaline Phosphatase Troponin I Total Protein Albumin Lipase Urine Color Urine Clarity Urine pH Ur Specific [place] Urine Protein Urine Glucose (UA) Urine Ketones Urine Occult Blood Urine Nitrate Urine Bilirubin Urine Urobilinogen Ur Leukocyte Esterase Urine RBC Urine WBC Urine Bacteria Ur Microscopic Review 01/21/18 01/21/18 01/21/18 09:15 09:15 09:30 WBC RBC Hgb Hct MCV MCH MCHC RDW Plt Count MPV Neut % (Auto) Lymph % (Auto) Wilkinson % (Auto) Eos % (Auto) Baso % (Auto) Neut # (Auto) Lymph # (Auto) Wilkinson # (Auto) Eos # (Auto) Baso # (Auto) WBC Differential Differential Comment PT INR APTT Puncture Site Patient Temperature O2 Saturation ABG pH ABG pCO2 ABG pO2 ABG HCO3 ABG O2 Content ABG Base Excess ABG Methemoglobin Leoncio Test Hemoglobin Carboxyhemoglobin Liter Flow Critical Value Sodium 139 Potassium 3.8 Chloride 103 Carbon Dioxide 24.0 Anion Gap 12 BUN 14 Creatinine 0.91 Estimated GFR Greater than 89 Random Glucose 212 H Lactic Acid 4.3 H* Calcium 7.9 L Magnesium 1.7 Total Bilirubin 0.2 AST 15 ALT 21 Alkaline Phosphatase 148 H Troponin I Less than 0.02 L Total Protein 7.3 Albumin 3.1 L Lipase 29 L Urine Color Yellow Urine Clarity Hazy H Urine pH 6.0 Ur Specific [place] 1.021 Urine Protein Negative Urine Glucose (UA) 150 H Urine Ketones Trace H Urine Occult Blood Small H Urine Nitrate Positive H Urine Bilirubin Negative Urine Urobilinogen Less than 2 Ur Leukocyte Esterase Large H Urine RBC 15 H Urine WBC Urine Bacteria Many H Ur Microscopic Review Not Reportable 01/21/18 15:20 WBC RBC Hgb Hct MCV MCH MCHC RDW Plt Count MPV Neut % (Auto) Lymph % (Auto) Wilkinson % (Auto) Eos % (Auto) Baso % (Auto) Neut # (Auto) Lymph # (Auto) Wilkinson # (Auto) Eos # (Auto) Baso # (Auto) WBC Differential Differential Comment PT INR APTT Puncture Site Patient Temperature O2 Saturation ABG pH ABG pCO2 ABG pO2 ABG HCO3 ABG O2 Content ABG Base Excess ABG Methemoglobin Leoncio Test Hemoglobin Carboxyhemoglobin Liter Flow Critical Value Sodium Potassium Chloride Carbon Dioxide Anion Gap BUN Creatinine Estimated GFR Random Glucose Lactic Acid 1.5 Calcium Magnesium Total Bilirubin AST ALT Alkaline Phosphatase Troponin I Total Protein Albumin Lipase Urine Color Urine Clarity Urine pH Ur Specific [place] Urine Protein Urine Glucose (UA) Urine Ketones Urine Occult Blood Urine Nitrate Urine Bilirubin Urine Urobilinogen Ur Leukocyte Esterase Urine RBC Urine WBC Urine Bacteria Ur Microscopic Review - Imaging Impressions Abdomen/Pelvis CT 01/21/18 08:41 CONCLUSION: 1. There is a large amount of stool in the distal descending colon, the sigmoid and the rectum. There is significant distention. The exam would suggest fecal impaction. 2. There is an indwelling suprapubic catheter. 3. There is no hydronephrosis. Chest X-Ray 01/21/18 08:41 CONCLUSION: No acute cardiopulmonary findings. The small areas of atelectasis in the lung bases seen on previous have resolved. <Brock Crandall - Last Filed: 01/21/18 19:17> Assessment and Plan (1) Fecal impaction Status: Acute Code(s): K56.41 - Fecal impaction - Plan This patient is a 37-year-old male with history of multiple sclerosis, suprapubic catheter placement, hepatitis C, paraplegia, anxiety and blindness. Patient is a resident of a nursing home facility who was brought to the ER at [facility] with report of nausea. Patient denies vomiting. Patient denies any fever or chills. Upon consultation, patient states that he had a moderately sized soft bowel movement yesterday. He denies any further nausea or abdominal pain. He denies being informed of any noted blood in his stool. States he has never had an EGD or colonoscopy in the past. Our service has been consulted to evaluate patient for fecal impaction. CT revealed large amount of stool in distant colon sigmoid colon and rectum with significant distention Fecal impaction 01/21/2018 CT abdomen and pelvis revealed the following-- 1. There is a large amount of stool in the distal descending colon, the sigmoid and the rectum. There is significant distention. The exam would suggest fecal impaction. 2. There is an indwelling suprapubic catheter. 3. There is no hydronephrosis. WBC 16.7 hemoglobin 13.7 hematocrit 42.9 Total bilirubin 0.2 AST 15 ALT 21 Plan -N.p.o. for now -Continue bowel regimen -Soapsuds enemas x2 -KUB in the a.m. -Continue IV hydration -Supportive care -Further recommendations to follow This patient has been seen by myself and Dr. Crandall and this note is written on his behalf - Attending Attestation Dr. Crandall <Katt Irwin - Last Filed: 01/21/18 18:16> (1) Fecal impaction Status: Acute Code(s): K56.41 - Fecal impaction - Plan Patient was seen and examined, agree with above note, patient 1 bottle of magnesium citrate, will give him enemas and will check KUB tomorrow <Brock Crandall - Last Filed: 01/21/18 19:17>
--- NOTE | 2018-01-21 19:14 | ED ---
HPI General Chief Complaint: Abdominal Pain Stated Complaint: Sepsis Poss Time Seen by Provider: 01/21/18 08:41 Source: patient, EMS and old records reviewed Mode of arrival: EMS Limitations: physical limitation History of Present Illness HPI narrative: The patient is a 37-year-old male with history of MS quadriplegic with chronic UTIs and a suprapubic catheter was presented from the residential facility for distended abdomen and associated pain. She also has been having nausea since last night and one episode of emesis. Patient denies any fever or chills he is alert and oriented able to respond to questions without limitations other than in the physical MD complaint: Reports abdominal pain Onset (ago): day(s) (1) Pain Consistency: constant Location: Reports diffuse Severity: mild Quality: Reports cramping Radiation: Reports none Relieving factors: nothing Context: Reports recent antibiotic use (Cipro For UTI); Denies foreign travel Associated symptoms: Reports nausea, vomiting and diarrhea; Denies fever, chills , constipation, dysuria, hematemesis, hematochezia, melena, hematuria and anorexia Related Data Home Medications Medication Instructions Recorded Confirmed bisacodyl [Dulcolax (bisacodyl)] 5 mg PO DAILY 12/29/17 01/21/18 bisacodyl [Dulcolax (bisacodyl)] 10 mg FL DAILY PRN 12/29/17 01/21/18 citalopram [Celexa] 20 mg PO DAILY 12/29/17 01/21/18 clonazepam 1 mg PO BID 12/29/17 01/21/18 docusate sodium [Colace] 100 mg PO BID 12/29/17 01/21/18 gabapentin 400 mg PO Q6H 12/29/17 01/21/18 ketoconazole 1 applic TOPICAL MOTH 12/29/17 01/21/18 loratadine 10 mg PO DAILY 12/29/17 01/21/18 melatonin 3 mg PO HS 12/29/17 01/21/18 oxybutynin chloride 5 mg PO BID 12/29/17 01/21/18 triamcinolone acetonide 1 applic TOPICAL DAILY 12/29/17 01/21/18 potassium chloride 20 meq PO DAILY 01/21/18 01/21/18 Previous Rx's Medication Instructions Recorded baclofen 20 mg PO Q8HR tab 12/31/17 Allergies Allergy/AdvReac Type Severity Reaction Status Date / Time No Known Allergies Allergy Verified 01/21/18 08:45 Review of Systems ROS: all other systems reviewed are negative [facility] Medical History Medical History Suprapubic catheter (Acute) Anxiety (Acute) Blind (Acute) Hepatitis C (Acute) Insomnia (Acute) Multiple sclerosis (Acute) Paraplegia (Acute) Suprapubic catheter (Acute) Family History Family History Other No pertinent family history Social History Social History Substance History: No History of Abuse Second Hand Smoke Exposure: No Smoking Status: Unknown if ever smoked Tobacco Type: Cigarettes How Often Do You Have a Drink Containing Alcohol: Never Recent Travel in [facility] within the Last 8 Weeks: No Recent Out of Country Travel within the Last 8 Weeks: No Immunization History Tetanus Immunization: <5 Years Exam Narrative Exam Narrative: GENERAL: Well-nourished. Pale. No acute distress. SKIN: Focused skin assessment warm/dry. Excoriations on lower extremities. HEAD: Atraumatic. Normocephalic. EYES: Pupils equal and round. No scleral icterus. No injection or drainage. ENT: No nasal bleeding or discharge. Mucous membranes pink and moist. NECK: Trachea midline. No JVD. CARDIOVASCULAR: Tachycardia with regular rhythm. No murmur appreciated. Delayed capillary refill bilateral lower extremities for second RESPIRATORY: No accessory muscle use. Clear to auscultation. Breath sounds equal bilaterally. GASTROINTESTINAL: Abdomen soft, with diffuse tenderness to palpation, distended. Hepatic and splenic margins not palpable. MUSCULOSKELETAL: Contracture deformities in bilateral lower extremities from MS. No clubbing. No cyanosis. No edema. NEUROLOGICAL: Awake and alert. No obvious cranial nerve deficits. Motor grossly within normal limits. Normal speech. PSYCHIATRIC: Appropriate mood and affect; insight and judgment normal. Course Initial Documented Vital Signs Pulse Oximetry 98 01/21/18 08:41 Last Documented Vital Signs Temperature 98.9 F 01/21/18 08:51 Pulse Rate 108 H 01/21/18 15:00 Respiratory Rate 20 01/21/18 15:00 Blood Pressure 133/86 01/21/18 15:00 Pulse Oximetry 98 01/21/18 15:00 Critical Care Time Critical Care Time: Yes Total Critical Care Time: 30 Attestation: Aggregate critical care time was 45 minutes. Time to perform other separately billable procedures was not included in the critical care time. My time did not include minutes spent treating any other patients simultaneously or on activities that did not directly contribute to the patient's treatment. The services I provided to this patient were to treat and/or prevent clinically significant deterioration that could result in: I provided critical care services requiring my management, as noted below: Chart data review, documentation time, medication orders and management, vital sign assessments/reviewing monitor data, ordering and reviewing lab tests, ordering and interpreting/reviewing x-rays and diagnostic studies, care of the patient and discussion of the patient with the admitting physicians. Medical Decision Making MDM Narrative Medical decision making narrative: Patient with large amount of stool in the distal descending colon and distention suggestive of fecal impaction. UA positive for urinary tract infection. Positive lactate stiff urosepsis. Hemodynamically stable. Broad spectrum antibiotics were given on arrival. No perforation. Improved markedly with intervention. He does have history of ESBL. Primary team to consult infectious disease specialist. Are unremarkable. Medical Screen Exam Complete: Yes Emergency Medical Condition: Yes Medical Records Medical records reviewed: Yes I reviewed the patient's medical records. Lab Data Lab results reviewed: Yes I reviewed the patient's lab results. Result diagrams: 01/21/18 09:15 01/21/18 09:15 Lab Results 01/21/18 01/21/18 01/21/18 Range/Units 09:07 09:15 09:15 WBC 16.7 H (4.0-11.0) th/mm3 RBC 5.19 (4.50-5.90) mil/mm3 Hgb 13.7 (13.0-17.0) gm/dL Hct 42.9 (39.0-51.0) % MCV 82.8 (80.0-100.0) fL MCH 26.4 L (27.0-34.0) pg MCHC 31.9 L (32.0-36.0) % RDW 14.2 (11.6-17.2) % Plt Count 355 D (150-450) th/mm3 MPV 8.8 (7.0-11.0) fL Neut % (Auto) 89.8 H (16.0-70.0) % Lymph % (Auto) 6.6 L (9.0-44.0) % [place] % (Auto) 3.5 (0.0-8.0) % Eos % (Auto) 0.0 (0.0-4.0) % Baso % (Auto) 0.1 (0.0-2.0) % Neut # (Auto) 15.0 H (1.8-7.7) th/mm3 Lymph # (Auto) 1.1 (1.0-4.8) th/mm3 [place] # (Auto) 0.6 (0.0-0.9) th/mm3 Eos # (Auto) 0.0 (0.0-0.4) th/mm3 Baso # (Auto) 0.0 (0.0-0.2) th/mm3 WBC Differential . Differential Comment Auto diff final PT 10.9 (9.8-11.6) sec INR 1.1 Ratio APTT 32.4 H (23.4-31.7) sec Puncture Site Left radial Patient Temperature 98.6 O2 Saturation 96 (90-100) % ABG pH 7.39 (7.380-7.420) ABG pCO2 41 (38-42) mmHg ABG pO2 99 (61-120) mmHg ABG HCO3 24 (22-26) mmol/L ABG O2 Content 17.3 (12.0-20.0) Vol % ABG Base Excess -0.4 (-2-2) mmol/L ABG Methemoglobin 0.6 (0-2) % Leoncio Test Present Hemoglobin 12.7 (12.0-16.0) G/DL Carboxyhemoglobin 1.1 (0-4) % Liter Flow 3.00 L/M Critical Value No Sodium (136-145) meq/L Potassium (3.5-5.1) meq/L Chloride (98-107) meq/L Carbon Dioxide (21.0-32.0) meq/L Anion Gap (5-15) meq/L BUN (7-18) mg/dL Creatinine (0.60-1.30) mg/dL Estimated GFR (>89) mL/min Random Glucose (74-106) mg/dL Lactic Acid (0.4-2.0) mmol/L Calcium (8.5-10.1) mg/dL Magnesium (1.5-2.5) mg/dL Total Bilirubin (0.2-1.0) mg/dL AST (15-37) U/L ALT (12-78) U/L Alkaline Phosphatase (45-117) U/L Troponin I (0.02-0.05) ng/mL Total Protein (6.4-8.2) g/dL Albumin (3.4-5.0) g/dL Lipase (73-393) U/L Urine Color (Yellw/Straw) Urine Clarity (Clear) Urine pH (5.0-8.5) Ur Specific [place] (1.002-1.035) Urine Protein (Neg-Trace) mg/dL Urine Glucose (UA) (Negative) mg/dL Urine Ketones (Negative) mg/dL Urine Occult Blood (Negative) Urine Nitrate (Negative) Urine Bilirubin (Negative) Urine Urobilinogen (Less than 2) mg/dL Ur Leukocyte Esterase (Negative) Urine RBC (0-3) /hpf Urine WBC (0-5) /hpf Urine Bacteria (None) /hpf Ur Microscopic Review 01/21/18 01/21/18 01/21/18 Range/Units 09:15 09:15 09:30 WBC (4.0-11.0) th/mm3 RBC (4.50-5.90) mil/mm3 Hgb (13.0-17.0) gm/dL Hct (39.0-51.0) % MCV (80.0-100.0) fL MCH (27.0-34.0) pg MCHC (32.0-36.0) % RDW (11.6-17.2) % Plt Count (150-450) th/mm3 MPV (7.0-11.0) fL Neut % (Auto) (16.0-70.0) % Lymph % (Auto) (9.0-44.0) % [place] % (Auto) (0.0-8.0) % Eos % (Auto) (0.0-4.0) % Baso % (Auto) (0.0-2.0) % Neut # (Auto) (1.8-7.7) th/mm3 Lymph # (Auto) (1.0-4.8) th/mm3 [place] # (Auto) (0.0-0.9) th/mm3 Eos # (Auto) (0.0-0.4) th/mm3 Baso # (Auto) (0.0-0.2) th/mm3 WBC Differential Differential Comment PT (9.8-11.6) sec INR Ratio APTT (23.4-31.7) sec Puncture Site Patient Temperature O2 Saturation (90-100) % ABG pH (7.380-7.420) ABG pCO2 (38-42) mmHg ABG pO2 (61-120) mmHg ABG HCO3 (22-26) mmol/L ABG O2 Content (12.0-20.0) Vol % ABG Base Excess (-2-2) mmol/L ABG Methemoglobin (0-2) % Leoncio Test Hemoglobin (12.0-16.0) G/DL Carboxyhemoglobin (0-4) % Liter Flow L/M Critical Value Sodium 139 (136-145) meq/L Potassium 3.8 (3.5-5.1) meq/L Chloride 103 (98-107) meq/L Carbon Dioxide 24.0 (21.0-32.0) meq/L Anion Gap 12 (5-15) meq/L BUN 14 (7-18) mg/dL Creatinine 0.91 (0.60-1.30) mg/dL Estimated GFR Greater than 89 (>89) mL/min Random Glucose 212 H (74-106) mg/dL Lactic Acid 4.3 H* (0.4-2.0) mmol/L Calcium 7.9 L (8.5-10.1) mg/dL Magnesium 1.7 (1.5-2.5) mg/dL Total Bilirubin 0.2 (0.2-1.0) mg/dL AST 15 (15-37) U/L ALT 21 (12-78) U/L Alkaline Phosphatase 148 H (45-117) U/L Troponin I Less than 0.02 L (0.02-0.05) ng/mL Total Protein 7.3 (6.4-8.2) g/dL Albumin 3.1 L (3.4-5.0) g/dL Lipase 29 L (73-393) U/L Urine Color Yellow (Yellw/Straw) Urine Clarity Hazy H (Clear) Urine pH 6.0 (5.0-8.5) Ur Specific [place] 1.021 (1.002-1.035) Urine Protein Negative (Neg-Trace) mg/dL Urine Glucose (UA) 150 H (Negative) mg/dL Urine Ketones Trace H (Negative) mg/dL Urine Occult Blood Small H (Negative) Urine Nitrate Positive H (Negative) Urine Bilirubin Negative (Negative) Urine Urobilinogen Less than 2 (Less than 2) mg/dL Ur Leukocyte Esterase Large H (Negative) Urine RBC 15 H (0-3) /hpf Urine WBC (0-5) /hpf Urine Bacteria Many H (None) /hpf Ur Microscopic Review Not Reportable 01/21/18 Range/Units 15:20 WBC (4.0-11.0) th/mm3 RBC (4.50-5.90) mil/mm3 Hgb (13.0-17.0) gm/dL Hct (39.0-51.0) % MCV (80.0-100.0) fL MCH (27.0-34.0) pg MCHC (32.0-36.0) % RDW (11.6-17.2) % Plt Count (150-450) th/mm3 MPV (7.0-11.0) fL Neut % (Auto) (16.0-70.0) % Lymph % (Auto) (9.0-44.0) % [place] % (Auto) (0.0-8.0) % Eos % (Auto) (0.0-4.0) % Baso % (Auto) (0.0-2.0) % Neut # (Auto) (1.8-7.7) th/mm3 Lymph # (Auto) (1.0-4.8) th/mm3 [place] # (Auto) (0.0-0.9) th/mm3 Eos # (Auto) (0.0-0.4) th/mm3 Baso # (Auto) (0.0-0.2) th/mm3 WBC Differential Differential Comment PT (9.8-11.6) sec INR Ratio APTT (23.4-31.7) sec Puncture Site Patient Temperature O2 Saturation (90-100) % ABG pH (7.380-7.420) ABG pCO2 (38-42) mmHg ABG pO2 (61-120) mmHg ABG HCO3 (22-26) mmol/L ABG O2 Content (12.0-20.0) Vol % ABG Base Excess (-2-2) mmol/L ABG Methemoglobin (0-2) % Leoncio Test Hemoglobin (12.0-16.0) G/DL Carboxyhemoglobin (0-4) % Liter Flow L/M Critical Value Sodium (136-145) meq/L Potassium (3.5-5.1) meq/L Chloride (98-107) meq/L Carbon Dioxide (21.0-32.0) meq/L Anion Gap (5-15) meq/L BUN (7-18) mg/dL Creatinine (0.60-1.30) mg/dL Estimated GFR (>89) mL/min Random Glucose (74-106) mg/dL Lactic Acid 1.5 (0.4-2.0) mmol/L Calcium (8.5-10.1) mg/dL Magnesium (1.5-2.5) mg/dL Total Bilirubin (0.2-1.0) mg/dL AST (15-37) U/L ALT (12-78) U/L Alkaline Phosphatase (45-117) U/L Troponin I (0.02-0.05) ng/mL Total Protein (6.4-8.2) g/dL Albumin (3.4-5.0) g/dL Lipase (73-393) U/L Urine Color (Yellw/Straw) Urine Clarity (Clear) Urine pH (5.0-8.5) Ur Specific [place] (1.002-1.035) Urine Protein (Neg-Trace) mg/dL Urine Glucose (UA) (Negative) mg/dL Urine Ketones (Negative) mg/dL Urine Occult Blood (Negative) Urine Nitrate (Negative) Urine Bilirubin (Negative) Urine Urobilinogen (Less than 2) mg/dL Ur Leukocyte Esterase (Negative) Urine RBC (0-3) /hpf Urine WBC (0-5) /hpf Urine Bacteria (None) /hpf Ur Microscopic Review Imaging Data Radiologist's impression: Abdomen/Pelvis CT 01/21/18 08:41 CONCLUSION: 1. There is a large amount of stool in the distal descending colon, the sigmoid and the rectum. There is significant distention. The exam would suggest fecal impaction. 2. There is an indwelling suprapubic catheter. 3. There is no hydronephrosis. Chest X-Ray 01/21/18 08:41 CONCLUSION: No acute cardiopulmonary findings. The small areas of atelectasis in the lung bases seen on previous have resolved. ECG Data EKG Prior to Arrival: No Discharge Plan Discharge Disposition Patient Disposition: 30 Still Patient Discharge Condition Condition: Fair Discharge Details Diagnosis: Fecal impaction, Severe sepsis, Acute UTI Physicians Team ED Provider: Jordy Flores Primary Care Provider: Chris William Attending Provider: Cassie Kenney Other Providers: Helen Horton ; Brock Crandall ; [facility],Insurance Discharge Interventions Interventions: ED Discharge Assessment Last Done: 01/21/18 17:12 Vital Signs Last Done: 01/21/18 15:00 Status ED Status: Left Department Discharge Information Discharge Date/Time: 01/21/18 17:54
[2018-01-21] MEDS ORDERED: Magnesium Citrate Liq 300 ML Bottle PO ONE (19:45)
[2018-01-21] MEDS: Piperacil/Tazo 3.375 GM Premix 50 ML IV.SIG SCH (21:32)
[2018-01-21] MEDS: clonazePAM 1 MG Tablet PO SCH (23:31)
[2018-01-21] MEDS: Docusate Sodium 100 MG Capsule PO SCH (23:32)
[2018-01-21] MEDS: Melatonin 5 MG Tablet PO SCH (23:32)
[2018-01-22] MEDS: Gabapentin 400 MG Capsule PO SCH ×4 (03:14→21:17)
[2018-01-22] MEDS: Piperacil/Tazo 3.375 GM Premix 50 ML IV.SIG SCH ×3 (04:30→21:18)
--- NOTE | 2018-01-22 06:13 | XR ---
EXAM DATE: 01/22/2018 5:53 AM EST AGE/SEX: 37 years / Male INDICATIONS: Fecal impaction. Nausea. CLINICAL DATA: This is the patient's subsequent encounter. Patient reports that signs and symptoms h ave been present for 2 days and indicates a pain score of 0/10. MEDICAL/SURGICAL HISTORY: Hepatitis C. Multiple sclerosis. Paraplegia. . Supra pubic catheter . COMPARISON: [facility] [place] [facility] 1V KUB, 12/30/2017. . FINDINGS: The abdominal bowel gas pattern is normal. There is a significant amount of air throughout the small and large bowel. No abnormal masses, calcifications, or organomegaly is seen. The osseous structur es are unremarkable except bilateral hip osteoarthritis. CONCLUSION: Persistent significant amount of air and stool throughout the colon. Distended small bowel. Similar e xam to the previous day. Stool density remains overlying the rectum. Electronically signed by: Ajith Landaverde MD 01/22/2018 6:12 AM EST
[2018-01-22 07:21] LABS: Baso % (Auto) 0.2 % (0.0-2.0); Eos # (Auto) 0.3 th/mm3 (0.0-0.4); Eos % (Auto) 4.7 % (0.0-4.0); Hematocrit 31.9 % (39.0-51.0); Hemoglobin 10.4 gm/dL (13.0-17.0); Lymph # (Auto) 2.8 th/mm3 (1.0-4.8); Lymph % (Auto) 38.4 % (9.0-44.0); Mean Corpuscular HGB Conc 32.8 % (32.0-36.0); Mean Corpuscular Hemoglobin 26.8 pg (27.0-34.0); Mean Corpuscular Volume 81.8 fL (80.0-100.0); Mean Platelet Volume 8.4 fL (7.0-11.0); Mono # (Auto) 0.7 th/mm3 (0.0-0.9); Mono % (Auto) 9.2 % (0.0-8.0); Neut # (Auto) 3.5 th/mm3 (1.8-7.7); Neut % (Auto) 47.5 % (16.0-70.0); Platelet Count 206 th/mm3 (150-450); Red Cell Distribution Width 14.2 % (11.6-17.2); White Blood Count 7.3 th/mm3 (4.0-11.0)
[2018-01-22 07:59] LABS: Anion Gap 5 meq/L (5-15); Blood Urea Nitrogen 13 mg/dL (7-18); Carbon Dioxide 28.9 meq/L (21.0-32.0); Chloride 112 meq/L (98-107); Glomerular Filtration Rate Greater Than 89 mL/min (>89); Glucose,Random 87 mg/dL (74-106); Potassium 3.4 meq/L (3.5-5.1); Sodium 146 meq/L (136-145)
[2018-01-22 08:17] LABS: Total Protein 5.6 g/dL (6.4-8.2)
[2018-01-22] MEDS: Sod Chloride 0.9% Inj 1,000 ML IV.CONT SCH (08:27)
[2018-01-22] MEDS: Docusate Sodium 100 MG Capsule PO SCH ×2 (08:28→21:17)
[2018-01-22] MEDS: Loratadine 10 MG Tablet PO SCH (08:28)
[2018-01-22] MEDS: Citalopram 20 MG Tablet PO SCH (08:28)
[2018-01-22] MEDS: clonazePAM 1 MG Tablet PO SCH ×2 (08:28→21:17)
--- NOTE | 2018-01-22 08:37 | P.PNIM ---
Subjective Interval history: f/u; UTI in no acute distress. looks comfortable and the pain is better. no fever. had a couple of BM's last night. d/w the RN at the bedside. Physical Exam Vital signs: Vital Signs 01/21/18 08:41 01/21/18 08:51 01/21/18 08:54 Temperature 98.9 F Pulse Rate 130 H 120 H Respiratory Rate 30 H 18 Blood Pressure 132/82 132/82 Pulse Oximetry 98 96 98 01/21/18 09:00 01/21/18 09:54 01/21/18 13:00 Temperature 98.4 F Pulse Rate 101 H 116 H 122 H Respiratory Rate 19 18 18 Blood Pressure 121/59 L 130/76 139/80 Pulse Oximetry 97 98 98 01/21/18 13:10 01/21/18 15:00 01/22/18 00:00 Temperature 98.4 F Pulse Rate 110 H 108 H 69 Respiratory Rate 20 20 19 Blood Pressure 133/86 133/86 100/59 L Pulse Oximetry 98 100 01/22/18 04:00 Temperature 98.3 F Pulse Rate 109 H Respiratory Rate 18 Blood Pressure 112/65 Pulse Oximetry 94 L Intake & Output 01/21/18 01/22/18 01/22/18 18:59 06:59 18:59 Intake Total 1300 / 1300 280 / 280 1000 / 1000 Output Total 1400 / 1400 Balance 1300 / 1300 -1120 / -1120 1000 / 1000 Weight 81.647 kg 90.2 kg Intake: IV 1300 / 1300 100 / 100 1000 / 1000 NS Inj 1,000 ML @ 125 mls/hr IV 0 / 0 1000 / 1000 .CONT .Q8H GILLIAN Rx#:[id number] Zosyn 3.375 GM Premix 50 ML @ 50 / 50 100 / 100 100 mls/hr IV.SIG Q8H GILLIAN Rx#: [id number] NS Inj 1,000 ML @ Wide Open IV. 1000 / 1000 SIG BOLUS ONE Rx#:[id number] Vancomycin Inj 1,000 MG In NS 250 / 250 Inj 250 ML @ 250 mls/hr IV.SIG ONCE ONE Rx#:[id number] Oral 180 / 180 Output: Urine Amount (Catheter) 1400 / 1400 Suprapubic 1400 / 1400 Other: # Voids 2 Date of Last Bowel Movement 01/22/18 # Bowel Movements 5 - Constitutional no acute distress - Routine Respiratory Exam Present: CTA bilaterally - Routine Cardiovascular Exam Present: RRR - Routine Abdominal Exam Present: soft (distention is better.) - Routine Extremities Exam Comments: no pedal edema. - Routine Neurological Exam Present: alert, oriented X3 - Urinary Catheter Management Suprapubic Cath placed during this visit: no Results - Labs CBC & Chem 7: 01/22/18 05:59 01/22/18 05:59 Laboratory Results - last 24 hr 01/21/18 01/21/18 01/21/18 09:07 09:15 09:15 WBC 16.7 H RBC 5.19 Hgb 13.7 Hct 42.9 MCV 82.8 MCH 26.4 L MCHC 31.9 L RDW 14.2 Plt Count 355 D MPV 8.8 Neut % (Auto) 89.8 H Lymph % (Auto) 6.6 L [place] % (Auto) 3.5 Eos % (Auto) 0.0 Baso % (Auto) 0.1 Neut # (Auto) 15.0 H Lymph # (Auto) 1.1 [place] # (Auto) 0.6 Eos # (Auto) 0.0 Baso # (Auto) 0.0 WBC Differential . Differential Comment Auto diff final PT 10.9 INR 1.1 APTT 32.4 H Puncture Site Left radial Patient Temperature 98.6 O2 Saturation 96 ABG pH 7.39 ABG pCO2 41 ABG pO2 99 ABG HCO3 24 ABG O2 Content 17.3 ABG Base Excess -0.4 ABG Methemoglobin 0.6 Leoncio Test Present Hemoglobin 12.7 Carboxyhemoglobin 1.1 Liter Flow 3.00 Critical Value No Sodium Potassium Chloride Carbon Dioxide Anion Gap BUN Creatinine Estimated GFR Random Glucose Lactic Acid Calcium Prot Corrected Calcium Magnesium Total Bilirubin AST ALT Alkaline Phosphatase Troponin I Total Protein Albumin Lipase Urine Color Urine Clarity Urine pH Ur Specific [place] Urine Protein Urine Glucose (UA) Urine Ketones Urine Occult Blood Urine Nitrate Urine Bilirubin Urine Urobilinogen Ur Leukocyte Esterase Urine RBC Urine WBC Urine Bacteria Ur Microscopic Review 01/21/18 01/21/18 01/21/18 09:15 09:15 09:30 WBC RBC Hgb Hct MCV MCH MCHC RDW Plt Count MPV Neut % (Auto) Lymph % (Auto) [place] % (Auto) Eos % (Auto) Baso % (Auto) Neut # (Auto) Lymph # (Auto) [place] # (Auto) Eos # (Auto) Baso # (Auto) WBC Differential Differential Comment PT INR APTT Puncture Site Patient Temperature O2 Saturation ABG pH ABG pCO2 ABG pO2 ABG HCO3 ABG O2 Content ABG Base Excess ABG Methemoglobin Leoncio Test Hemoglobin Carboxyhemoglobin Liter Flow Critical Value Sodium 139 Potassium 3.8 Chloride 103 Carbon Dioxide 24.0 Anion Gap 12 BUN 14 Creatinine 0.91 Estimated GFR Greater than 89 Random Glucose 212 H Lactic Acid 4.3 H* Calcium 7.9 L Prot Corrected Calcium Magnesium 1.7 Total Bilirubin 0.2 AST 15 ALT 21 Alkaline Phosphatase 148 H Troponin I Less than 0.02 L Total Protein 7.3 Albumin 3.1 L Lipase 29 L Urine Color Yellow Urine Clarity Hazy H Urine pH 6.0 Ur Specific [place] 1.021 Urine Protein Negative Urine Glucose (UA) 150 H Urine Ketones Trace H Urine Occult Blood Small H Urine Nitrate Positive H Urine Bilirubin Negative Urine Urobilinogen Less than 2 Ur Leukocyte Esterase Large H Urine RBC 15 H Urine WBC Urine Bacteria Many H Ur Microscopic Review Not Reportable 01/21/18 01/22/18 01/22/18 15:20 05:59 05:59 WBC 7.3 D RBC 3.90 L Hgb 10.4 L D Hct 31.9 L MCV 81.8 MCH 26.8 L MCHC 32.8 RDW 14.2 Plt Count 206 D MPV 8.4 Neut % (Auto) 47.5 Lymph % (Auto) 38.4 [place] % (Auto) 9.2 H Eos % (Auto) 4.7 H Baso % (Auto) 0.2 Neut # (Auto) 3.5 Lymph # (Auto) 2.8 [place] # (Auto) 0.7 Eos # (Auto) 0.3 Baso # (Auto) 0.0 WBC Differential . Differential Comment Auto diff final PT INR APTT Puncture Site Patient Temperature O2 Saturation ABG pH ABG pCO2 ABG pO2 ABG HCO3 ABG O2 Content ABG Base Excess ABG Methemoglobin Leoncio Test Hemoglobin Carboxyhemoglobin Liter Flow Critical Value Sodium 146 H Potassium 3.4 L Chloride 112 H D Carbon Dioxide 28.9 Anion Gap 5 BUN 13 Creatinine 0.53 L Estimated GFR Greater than 89 Random Glucose 87 D Lactic Acid 1.5 Calcium 7.0 L* D Prot Corrected Calcium 7.8 L Magnesium Total Bilirubin AST ALT Alkaline Phosphatase Troponin I Total Protein 5.6 L D Albumin Lipase Urine Color Urine Clarity Urine pH Ur Specific [place] Urine Protein Urine Glucose (UA) Urine Ketones Urine Occult Blood Urine Nitrate Urine Bilirubin Urine Urobilinogen Ur Leukocyte Esterase Urine RBC Urine WBC Urine Bacteria Ur Microscopic Review Microbiology 01/21/18 09:30 Nasal Wash Influenza Types A,B Antigen - Final Negative for FLU A and B antigen Infection due to influenza A or B cannot be ruled out since the antigen present in the sample may be below the detection limit of the test. - Imaging Impressions Abdomen/Pelvis CT 01/21/18 08:41 CONCLUSION: 1. There is a large amount of stool in the distal descending colon, the sigmoid and the rectum. There is significant distention. The exam would suggest fecal impaction. 2. There is an indwelling suprapubic catheter. 3. There is no hydronephrosis. Chest X-Ray 01/21/18 08:41 CONCLUSION: No acute cardiopulmonary findings. The small areas of atelectasis in the lung bases seen on previous have resolved. Abdomen X-Ray 01/22/18 06:00 CONCLUSION: Persistent significant amount of air and stool throughout the colon. Distended small bowel. Similar exam to the previous day. Stool density remains overlying the rectum. Assessment and Plan - Plan A/P - sepsis due to recurrent UTI continue with IV Zosyn- will follow the cultures- ID consult appreciated- suprapubic catheter was reportedly changed two days ago. continue with IV fluid. -abdominal distention/ fecal impaction - clinically better. continue Laxatives- GI consulted- will start on diet if ok with GI. -MS continue with muscle relaxant- consulted PT -DVT prophylaxis with subq Lovenox Discharge Planning: SNF when stable- pending ID/GI w/u.
[2018-01-22] MEDS ORDERED: Sodium Chloride 0.9% 2 ML Flush PRN IV.FLUSH (08:56)
[2018-01-22] MEDS: Sodium Chloride 0.9% 2 ML Flush BID IV.FLUSH SCH ×2 (09:43→21:18)
[2018-01-22] MEDS ORDERED: Potassium Chloride Inj 20 MEQ in Sod Chloride 0.9% Inj 1,000 ML IV.CONT SCH (10:00)
--- NOTE | 2018-01-22 11:33 | P.PNGI ---
Subjective Interval history: Patient resting comfortably in bed with eyes closed Awakens easily Reports relief of abdominal bloating Bedside nurse Vero HARRY reports patient had 4-5 soft bowel movements overnight Physical Exam Vital signs: Vital Signs 01/21/18 13:00 01/21/18 13:10 01/21/18 15:00 Temperature Pulse Rate 122 H 110 H 108 H Respiratory Rate 18 20 20 Blood Pressure 139/80 133/86 133/86 Pulse Oximetry 98 98 01/22/18 00:00 01/22/18 04:00 01/22/18 08:00 Temperature 98.4 F 98.3 F 97.9 F Pulse Rate 69 109 H 120 H Respiratory Rate 19 18 18 Blood Pressure 100/59 L 112/65 114/64 Pulse Oximetry 100 94 L 95 Intake & Output 01/21/18 01/22/18 01/22/18 18:59 06:59 18:59 Intake Total 1300 / 1300 280 / 280 1171 / 1171 Output Total 1400 / 1400 Balance 1300 / 1300 -1120 / -1120 1171 / 1171 Weight 81.647 kg 90.2 kg Intake: IV 1300 / 1300 100 / 100 1171 / 1171 NS Inj 1,000 ML @ 125 mls/hr IV 0 / 0 1171 / 1171 .CONT .Q8H [facility] Rx#:[id number] Zosyn 3.375 GM Premix 50 ML @ 50 / 50 100 / 100 100 mls/hr IV.SIG Q8H [facility] Rx#: [id number] NS Inj 1,000 ML @ Wide Open IV. 1000 / 1000 SIG BOLUS ONE Rx#:[id number] Vancomycin Inj 1,000 MG In NS 250 / 250 Inj 250 ML @ 250 mls/hr IV.SIG ONCE ONE Rx#:[id number] Oral 180 / 180 Output: Urine Amount (Catheter) 1400 / 1400 Suprapubic 1400 / 1400 Other: # Voids 2 Date of Last Bowel Movement 01/22/18 01/22/18 # Bowel Movements 5 - Constitutional chronically ill appearing - Routine HEENT Exam Head: Present: normocephalic - Routine Respiratory Exam Present: CTA bilaterally. Absent: accessory muscle use - Routine Abdominal Exam Present: soft, normoactive bowel sounds. Absent: tenderness, firm Comments: Less distention, abdomen soft with positive bowel sounds - Routine Skin Exam Present: dry, warm - Routine Neurological Exam Present: alert - Routine Psychiatric Exam Present: normal affect, cooperative - Urinary Catheter Management Suprapubic Cath placed during this visit: no Results - Labs CBC & Chem 7: 01/22/18 05:59 01/22/18 05:59 Laboratory Results - last 24 hr 01/21/18 01/22/18 01/22/18 15:20 05:59 05:59 WBC 7.3 D RBC 3.90 L Hgb 10.4 L D Hct 31.9 L MCV 81.8 MCH 26.8 L MCHC 32.8 RDW 14.2 Plt Count 206 D MPV 8.4 Neut % (Auto) 47.5 Lymph % (Auto) 38.4 [place] % (Auto) 9.2 H Eos % (Auto) 4.7 H Baso % (Auto) 0.2 Neut # (Auto) 3.5 Lymph # (Auto) 2.8 [place] # (Auto) 0.7 Eos # (Auto) 0.3 Baso # (Auto) 0.0 WBC Differential . Differential Comment Auto diff final Sodium 146 H Potassium 3.4 L Chloride 112 H D Carbon Dioxide 28.9 Anion Gap 5 BUN 13 Creatinine 0.53 L Estimated GFR Greater than 89 Random Glucose 87 D Lactic Acid 1.5 Calcium 7.0 L* D Prot Corrected Calcium 7.8 L Total Protein 5.6 L D Microbiology 01/21/18 09:15 Blood - Peripheral Aerobic Blood Culture - Preliminary No growth in 1 day 01/21/18 09:15 Blood - Peripheral Anaerobic Blood Culture - Preliminary No growth in 1 day 01/21/18 09:15 Blood - Peripheral Aerobic Blood Culture - Preliminary No growth in 1 day 01/21/18 09:15 Blood - Peripheral Anaerobic Blood Culture - Preliminary No growth in 1 day 01/21/18 09:30 Nasal Wash Influenza Types A,B Antigen - Final Negative for FLU A and B antigen Infection due to influenza A or B cannot be ruled out since the antigen present in the sample may be below the detection limit of the test. - Imaging Impressions Abdomen/Pelvis CT 01/21/18 08:41 CONCLUSION: 1. There is a large amount of stool in the distal descending colon, the sigmoid and the rectum. There is significant distention. The exam would suggest fecal impaction. 2. There is an indwelling suprapubic catheter. 3. There is no hydronephrosis. Abdomen X-Ray 01/22/18 06:00 CONCLUSION: Persistent significant amount of air and stool throughout the colon. Distended small bowel. Similar exam to the previous day. Stool density remains overlying the rectum. Assessment and Plan (1) Fecal impaction Status: Acute Code(s): K56.41 - Fecal impaction - Plan This patient is a 37-year-old male with history of multiple sclerosis, suprapubic catheter placement, hepatitis C, paraplegia, anxiety and blindness. Patient is a resident of a [place] [facility] facility who was brought to the ER at [facility] with report of nausea. Patient denies vomiting. Patient denies any fever or chills. Upon consultation, patient states that he had a moderately sized soft bowel movement yesterday. He denies any further nausea or abdominal pain. He denies being informed of any noted blood in his stool. States he has never had an EGD or colonoscopy in the past. Our service has been consulted to evaluate patient for fecal impaction. CT revealed large amount of stool in distant colon sigmoid colon and rectum with significant distention Fecal impaction 01/21/2018 CT abdomen and pelvis revealed the following-- 1. There is a large amount of stool in the distal descending colon, the sigmoid and the rectum. There is significant distention. The exam would suggest fecal impaction. 2. There is an indwelling suprapubic catheter. 3. There is no hydronephrosis. WBC 16.7 hemoglobin 13.7 hematocrit 42.9 Total bilirubin 0.2 AST 15 ALT 21 01/22/2018 Fecal impaction Bedside nurse reports patient had 4-5 soft BMs overnight. Abdomen soft with less distention noted 01/22/2018 KUB revealed the following findings : Persistent significant amount of air and stool throughout the colon. Distended small bowel. Similar exam to the previous day. Stool density remains overlying the rectum. Plan -Continue bowel regimen and monitor stool output -Continue IV hydration -Supportive care -Further recommendations to follow This patient has been seen by myself and Dr. Siddiqui and this note is written on his behalf - Attending Attestation Dr. Siddiqui
--- NOTE | 2018-01-22 15:04 | ECG ---
Date Performed: 01/21/2018 Time Performed: 10:09:51 PTAGE: 37 years EKG: SINUS TACHYCARDIA NONSPECIFIC ST & T-WAVE ABNORMALITY ABNORMAL RHYTHM ECG PREVIOUS TRACING : 12/29/2017 07.30 Compared to previous tracing, heart rate has decreased from 153 to 123. Otherwise no significant serial change DOCTOR: Colt Hurley Interpretating Date/Time 01/22/2018 15:03:23
--- NOTE | 2018-01-22 15:36 | P.PNID ---
Subjective Remarks: Mr. Rosemary Mejia is a 37-year-old male with a past medical history significant for multiple sclerosis who is bedbound and as well as a shelter resident. Patient has a long-term suprapubic catheter that is changed every month. He reports that the catheter was changed yesterday. It appears that patient was recently admitted and seen by infectious disease and discharged on oral Cipro. Patient reports nausea the night prior to admission with one small episode of emesis. He denies any fever or chills. He does have mild epigastric pain he reports he had a BM and denies any constipation. Infectious diseases consulted for evaluation and management of possible recurrent cystitis. Notes reviewed Temps ok Feels ok UC with low colony count GNR BC negative SPC changed one day [employer] in [place] CT A/P - result noted Antibiotics: Zosyn Lines: PIV Past Medical History: Suprapubic catheter Anxiety Blind Hepatitis C Insomnia Multiple sclerosis Paraplegia Suprapubic catheter Allergies/Adverse Reactions: Allergies No Known Allergies Allergy (Verified 01/21/18 08:45) Objective Vital Signs 01/22/18 00:00 01/22/18 04:00 01/22/18 08:00 Temperature 98.4 F 98.3 F 97.9 F Pulse Rate 69 109 H 120 H Respiratory Rate 19 18 18 Blood Pressure 100/59 L 112/65 114/64 Pulse Oximetry 100 94 L 95 01/22/18 12:00 Temperature 98.1 F Pulse Rate 112 H Respiratory Rate 18 Blood Pressure 114/65 Pulse Oximetry 95 Intake & Output 01/21/18 01/22/18 01/22/18 18:59 06:59 18:59 Intake Total 1300 / 1300 280 / 280 1221 / 1221 Output Total 1400 / 1400 Balance 1300 / 1300 -1120 / -1120 1221 / 1221 Weight 81.647 kg 90.2 kg Intake: IV 1300 / 1300 100 / 100 1221 / 1221 NS Inj 1,000 ML @ 125 mls/hr IV 0 / 0 1171 / 1171 .CONT .Q8H [facility] Rx#:[id number] Zosyn 3.375 GM Premix 50 ML @ 50 / 50 100 / 100 50 / 50 100 mls/hr IV.SIG Q8H [facility] Rx#: [id number] NS Inj 1,000 ML @ Wide Open IV. 1000 / 1000 SIG BOLUS ONE Rx#:[id number] Vancomycin Inj 1,000 MG In NS 250 / 250 Inj 250 ML @ 250 mls/hr IV.SIG ONCE ONE Rx#:[id number] Oral 180 / 180 Output: Urine Amount (Catheter) 1400 / 1400 Suprapubic 1400 / 1400 Other: # Voids 2 Date of Last Bowel Movement 01/22/18 01/22/18 # Bowel Movements 5 01/21/18 09:30 Suprapubic Urine Urine Culture - Preliminary gram negative rods 01/21/18 09:15 Blood - Peripheral Aerobic Blood Culture - Preliminary No growth in 1 day 01/21/18 09:15 Blood - Peripheral Anaerobic Blood Culture - Preliminary No growth in 1 day 01/21/18 09:15 Blood - Peripheral Aerobic Blood Culture - Preliminary No growth in 1 day 01/21/18 09:15 Blood - Peripheral Anaerobic Blood Culture - Preliminary No growth in 1 day 01/21/18 09:30 Nasal Wash Influenza Types A,B Antigen - Final Negative for FLU A and B antigen Infection due to influenza A or B cannot be ruled out since the antigen present in the sample may be below the detection limit of the test. Lab - Hematology Results 01/21/18 01/22/18 09:15 05:59 WBC 16.7 H 7.3 D RBC 5.19 3.90 L Hgb 13.7 10.4 L D Hct 42.9 31.9 L MCV 82.8 81.8 MCH 26.4 L 26.8 L MCHC 31.9 L 32.8 RDW 14.2 14.2 Plt Count 355 D 206 D MPV 8.8 8.4 Neut % (Auto) 89.8 H 47.5 Lymph % (Auto) 6.6 L 38.4 [place] % (Auto) 3.5 9.2 H Eos % (Auto) 0.0 4.7 H Baso % (Auto) 0.1 0.2 Neut # (Auto) 15.0 H 3.5 Lymph # (Auto) 1.1 2.8 [place] # (Auto) 0.6 0.7 Eos # (Auto) 0.0 0.3 Baso # (Auto) 0.0 0.0 WBC Differential . . Differential Comment Auto diff final Auto diff final Lab - Chemistry Results 01/21/18 01/21/18 01/21/18 09:15 09:15 15:20 Sodium 139 Potassium 3.8 Chloride 103 Carbon Dioxide 24.0 Anion Gap 12 BUN 14 Creatinine 0.91 Estimated GFR Greater than 89 Random Glucose 212 H Lactic Acid 4.3 H* 1.5 Calcium 7.9 L Prot Corrected Calcium Magnesium 1.7 Total Bilirubin 0.2 AST 15 ALT 21 Alkaline Phosphatase 148 H Troponin I Less than 0.02 L Total Protein 7.3 Albumin 3.1 L Lipase 29 L 01/22/18 05:59 Sodium 146 H Potassium 3.4 L Chloride 112 H D Carbon Dioxide 28.9 Anion Gap 5 BUN 13 Creatinine 0.53 L Estimated GFR Greater than 89 Random Glucose 87 D Lactic Acid Calcium 7.0 L* D Prot Corrected Calcium 7.8 L Magnesium Total Bilirubin AST ALT Alkaline Phosphatase Troponin I Total Protein 5.6 L D Albumin Lipase Imaging: ITS Impressions Abdomen/Pelvis CT 01/21/18 08:41 CONCLUSION: 1. There is a large amount of stool in the distal descending colon, the sigmoid and the rectum. There is significant distention. The exam would suggest fecal impaction. 2. There is an indwelling suprapubic catheter. 3. There is no hydronephrosis. Chest X-Ray 01/21/18 08:41 CONCLUSION: No acute cardiopulmonary findings. The small areas of atelectasis in the lung bases seen on previous have resolved. Abdomen X-Ray 01/22/18 06:00 CONCLUSION: Persistent significant amount of air and stool throughout the colon. Distended small bowel. Similar exam to the previous day. Stool density remains overlying the rectum. Physical Exam: GENERAL: Well-nourished well-developed, not in acute distress SKIN: Cool and dry, no generalized rash HEAD: Atraumatic. Normocephalic. No temporal or scalp tenderness. EYES: Pupils equal round and reactive. Scleral icterus. No injection or drainage. No petechia ENT: Moist oral mucosa NECK: Trachea midline. Supple, nontender, no meningeal signs. CARDIOVASCULAR: HS audible. RESPIRATORY: Clear to auscultation bilaterally. GASTROINTESTINAL: Abdomen soft nontender. Suprapubic catheter site with no evidence of infection, nontender. MUSCULOSKELETAL: Extremities without clubbing, cyanosis. NEUROLOGICAL: Bilateral lower extremity with contractures and no movement. Bilateral upper extremity with no movement. Speech fairly okay. Psych cooperative IV line sites ok. Assessment and Plan - Plan Rule out sepsis Possible cystitis Suprapubic catheter in place Multiple sclerosis Bedbound status Prior ESBL urinary tract infection Recommendations Continue Zosyn IV for now Follow cultures Follow temps Monitor progress
[2018-01-22] MEDS: Polyethylene Glycol 3350 17 GM Packet PO SCH (15:38)
[2018-01-22] MEDS: Melatonin 5 MG Tablet PO SCH (21:18)
[2018-01-23] MEDS: Piperacil/Tazo 3.375 GM Premix 50 ML IV.SIG SCH ×3 (03:21→21:30)
[2018-01-23] MEDS: Gabapentin 400 MG Capsule PO SCH ×4 (03:21→21:29)
[2018-01-23] MEDS: Polyethylene Glycol 3350 17 GM Packet PO SCH ×3 (08:17→21:28)
[2018-01-23] MEDS: clonazePAM 1 MG Tablet PO SCH ×2 (08:17→21:29)
[2018-01-23] MEDS: Citalopram 20 MG Tablet PO SCH (08:17)
[2018-01-23] MEDS: Loratadine 10 MG Tablet PO SCH (08:17)
[2018-01-23] MEDS: Docusate Sodium 100 MG Capsule PO SCH ×2 (08:17→21:29)
[2018-01-23] MEDS: Sodium Chloride 0.9% 2 ML Flush BID IV.FLUSH SCH ×2 (08:22→21:30)
[2018-01-23 08:41] LABS: Baso % (Auto) 0.2 % (0.0-2.0); Eos # (Auto) 0.4 th/mm3 (0.0-0.4); Eos % (Auto) 5.9 % (0.0-4.0); Hematocrit 33.3 % (39.0-51.0); Hemoglobin 11.1 gm/dL (13.0-17.0); Lymph # (Auto) 2.4 th/mm3 (1.0-4.8); Lymph % (Auto) 38.3 % (9.0-44.0); Mean Corpuscular HGB Conc 33.3 % (32.0-36.0); Mean Corpuscular Hemoglobin 26.9 pg (27.0-34.0); Mean Corpuscular Volume 80.9 fL (80.0-100.0); Mean Platelet Volume 8.3 fL (7.0-11.0); Mono # (Auto) 0.6 th/mm3 (0.0-0.9); Mono % (Auto) 9.7 % (0.0-8.0); Neut # (Auto) 2.9 th/mm3 (1.8-7.7); Neut % (Auto) 45.9 % (16.0-70.0); Platelet Count 198 th/mm3 (150-450); Red Blood Count 4.12 mil/mm3 (4.50-5.90); Red Cell Distribution Width 13.8 % (11.6-17.2); White Blood Count 6.3 th/mm3 (4.0-11.0)
[2018-01-23 09:08] LABS: Alanine Aminotransferase 15 U/L (12-78); Albumin 2.5 g/dL (3.4-5.0); Alkaline Phosphatase 99 U/L (45-117); Anion Gap 7 meq/L (5-15); Aspartate Aminotransferase 13 U/L (15-37); Blood Urea Nitrogen 6 mg/dL (7-18); Calcium 7.7 mg/dL (8.5-10.1); Carbon Dioxide 28.1 meq/L (21.0-32.0); Chloride 107 meq/L (98-107); Glomerular Filtration Rate Greater Than 89 mL/min (>89); Glucose,Random 82 mg/dL (74-106); Potassium 3.6 meq/L (3.5-5.1); Sodium 142 meq/L (136-145); Total Protein 5.9 g/dL (6.4-8.2)
--- NOTE | 2018-01-23 10:31 | P.PNIM ---
Subjective Interval history: f/u; UTI in no acute distress. feels better. no fever. Physical Exam Vital signs: Vital Signs 01/22/18 12:00 01/22/18 16:00 01/22/18 20:00 Temperature 98.1 F 98.5 F 97.8 F Pulse Rate 112 H 103 H 93 H Respiratory Rate 18 18 17 Blood Pressure 114/65 117/64 112/79 Pulse Oximetry 95 92 L 93 L 01/22/18 20:12 01/22/18 23:43 01/22/18 23:51 Temperature 98.4 F Pulse Rate 90 85 84 Respiratory Rate 16 Blood Pressure 122/69 Pulse Oximetry 93 L 01/23/18 03:53 01/23/18 04:00 01/23/18 08:00 Temperature 97.5 F L 97.8 F Pulse Rate 81 55 L 77 Respiratory Rate 16 18 Blood Pressure 122/71 114/75 Pulse Oximetry 97 91 L Intake & Output 01/22/18 01/23/18 01/23/18 18:59 06:59 18:59 Intake Total 2221 / 2221 1220 / 1220 Output Total 2500 / 2500 Balance 2221 / 2221 -1280 / -1280 Weight 92 kg Intake: IV 2221 / 2221 1100 / 1100 NS + KCl 20 mEq Inj 1,000 ML @ 1000 / 1000 1000 / 1000 125 mls/hr IV.CONT .Q8H [facility] Rx# :[id number] NS Inj 1,000 ML @ 125 mls/hr IV 1171 / 1171 .CONT .Q8H [facility] Rx#:[id number] Zosyn 3.375 GM Premix 50 ML @ 50 / 50 100 / 100 100 mls/hr IV.SIG Q8H [facility] Rx#: [id number] Oral 120 / 120 Output: Urine 2500 / 2500 Other: Date of Last Bowel Movement 01/22/18 01/23/18 # Bowel Movements 1 - Constitutional no acute distress - Routine Respiratory Exam Present: CTA bilaterally - Routine Cardiovascular Exam Present: RRR - Routine Abdominal Exam Present: soft (distention has much improved.) - Routine Extremities Exam Comments: no pedal edema. - Routine Neurological Exam Present: alert - Urinary Catheter Management Suprapubic Cath placed during this visit: no Reason for continuing: Chronic Urinary Retention Results - Labs CBC & Chem 7: 01/23/18 07:47 01/23/18 07:47 Laboratory Results - last 24 hr 01/23/18 01/23/18 07:47 07:47 WBC 6.3 RBC 4.12 L Hgb 11.1 L Hct 33.3 L MCV 80.9 MCH 26.9 L MCHC 33.3 RDW 13.8 Plt Count 198 MPV 8.3 Neut % (Auto) 45.9 Lymph % (Auto) 38.3 [place] % (Auto) 9.7 H Eos % (Auto) 5.9 H Baso % (Auto) 0.2 Neut # (Auto) 2.9 Lymph # (Auto) 2.4 [place] # (Auto) 0.6 Eos # (Auto) 0.4 Baso # (Auto) 0.0 WBC Differential . Differential Comment Auto diff final Sodium 142 Potassium 3.6 Chloride 107 Carbon Dioxide 28.1 Anion Gap 7 BUN 6 L Creatinine 0.50 L Estimated GFR Greater than 89 Random Glucose 82 Calcium 7.7 L Total Bilirubin 0.2 AST 13 L ALT 15 Alkaline Phosphatase 99 Total Protein 5.9 L Albumin 2.5 L D Microbiology 01/21/18 09:30 Suprapubic Urine Urine Culture - Preliminary gram negative rods 01/21/18 09:15 Blood - Peripheral Aerobic Blood Culture - Preliminary No growth in 1 day 01/21/18 09:15 Blood - Peripheral Anaerobic Blood Culture - Preliminary No growth in 1 day 01/21/18 09:15 Blood - Peripheral Aerobic Blood Culture - Preliminary No growth in 1 day 01/21/18 09:15 Blood - Peripheral Anaerobic Blood Culture - Preliminary No growth in 1 day Assessment and Plan - Plan A/P - sepsis due to recurrent UTI continue with IV Zosyn- will follow the cultures- ID consult appreciated- suprapubic catheter was reportedly changed three days ago. continue with IV fluid. -abdominal distention/ fecal impaction - clinically better. continue Laxatives- GI consulted- on liquid diet. -MS continue with muscle relaxant- consulted PT -DVT prophylaxis with subq Lovenox Discharge Planning: SNF when stable- pending ID/GI w/u.
--- NOTE | 2018-01-23 13:57 | P.PNID ---
Subjective Remarks: Mr. Rosemary Mejia is a 37-year-old male with a past medical history significant for multiple sclerosis who is bedbound and as well as a [place] [facility] resident. Patient has a long-term suprapubic catheter that is changed every month. He reports that the catheter was changed yesterday. It appears that patient was recently admitted and seen by infectious disease and discharged on oral Cipro. Patient reports nausea the night prior to admission with one small episode of emesis. He denies any fever or chills. He does have mild epigastric pain he reports he had a BM and denies any constipation. Infectious diseases consulted for evaluation and management of possible recurrent cystitis. Notes reviewed Temps ok Feels ok UC with low colony count Proteus and second GNR BC negative SPC changed one day [employer] in [place] CT A/P - result noted Antibiotics: Zosyn Lines: PIV Past Medical History: Suprapubic catheter Anxiety Blind Hepatitis C Insomnia Multiple sclerosis Paraplegia Suprapubic catheter Allergies/Adverse Reactions: Allergies No Known Allergies Allergy (Verified 01/21/18 08:45) Objective Vital Signs 01/22/18 16:00 01/22/18 20:00 01/22/18 20:12 Temperature 98.5 F 97.8 F Pulse Rate 103 H 93 H 90 Respiratory Rate 18 17 Blood Pressure 117/64 112/79 Pulse Oximetry 92 L 93 L 01/22/18 23:43 01/22/18 23:51 01/23/18 03:53 Temperature 98.4 F Pulse Rate 85 84 81 Respiratory Rate 16 Blood Pressure 122/69 Pulse Oximetry 93 L 01/23/18 04:00 01/23/18 08:00 01/23/18 12:00 Temperature 97.5 F L 97.8 F 97.7 F Pulse Rate 55 L 77 89 Respiratory Rate 16 18 18 Blood Pressure 122/71 114/75 117/80 Pulse Oximetry 97 91 L 95 Intake & Output 01/22/18 01/23/18 01/23/18 18:59 06:59 18:59 Intake Total 2221 / 2221 1220 / 1220 1050 / 1050 Output Total 2500 / 2500 Balance 222 / 2220 -1280 / -1280 1050 / 1050 Weight 92 kg Intake: IV 222 / 2220 1100 / 1100 1050 / 1050 NS + KCl 20 mEq Inj 1,000 ML @ 1000 / 1000 1000 / 1000 1000 / 1000 125 mls/hr IV.CONT .Q8H [facility] Rx# :[id number] NS Inj 1,000 ML @ 125 mls/hr IV 1171 / 1171 .CONT .Q8H [facility] Rx#:[id number] Zosyn 3.375 GM Premix 50 ML @ 50 / 50 100 / 100 50 / 50 100 mls/hr IV.SIG Q8H [facility] Rx#: [id number] Oral 120 / 120 Output: Urine 2500 / 2500 Other: Date of Last Bowel Movement 01/22/18 01/23/18 # Bowel Movements 1 01/21/18 09:30 Suprapubic Urine Urine Culture - Preliminary Proteus mirabilis gram negative rods 01/21/18 09:15 Blood - Peripheral Aerobic Blood Culture - Preliminary No growth in 2 days 01/21/18 09:15 Blood - Peripheral Anaerobic Blood Culture - Preliminary No growth in 2 days 01/21/18 09:15 Blood - Peripheral Aerobic Blood Culture - Preliminary No growth in 2 days 01/21/18 09:15 Blood - Peripheral Anaerobic Blood Culture - Preliminary No growth in 2 days 01/21/18 09:30 Nasal Wash Influenza Types A,B Antigen - Final Negative for FLU A and B antigen Infection due to influenza A or B cannot be ruled out since the antigen present in the sample may be below the detection limit of the test. Lab - Hematology Results 01/22/18 01/23/18 05:59 07:47 WBC 7.3 D 6.3 RBC 3.90 L 4.12 L Hgb 10.4 L D 11.1 L Hct 31.9 L 33.3 L MCV 81.8 80.9 MCH 26.8 L 26.9 L MCHC 32.8 33.3 RDW 14.2 13.8 Plt Count 206 D 198 MPV 8.4 8.3 Neut % (Auto) 47.5 45.9 Lymph % (Auto) 38.4 38.3 [place] % (Auto) 9.2 H 9.7 H Eos % (Auto) 4.7 H 5.9 H Baso % (Auto) 0.2 0.2 Neut # (Auto) 3.5 2.9 Lymph # (Auto) 2.8 2.4 [place] # (Auto) 0.7 0.6 Eos # (Auto) 0.3 0.4 Baso # (Auto) 0.0 0.0 WBC Differential . . Differential Comment Auto diff final Auto diff final Lab - Chemistry Results 01/21/18 01/22/18 01/23/18 15:20 05:59 07:47 Sodium 146 H 142 Potassium 3.4 L 3.6 Chloride 112 H D 107 Carbon Dioxide 28.9 28.1 Anion Gap 5 7 BUN 13 6 L Creatinine 0.53 L 0.50 L Estimated GFR Greater than 89 Greater than 89 Random Glucose 87 D 82 Lactic Acid 1.5 Calcium 7.0 L* D 7.7 L Prot Corrected Calcium 7.8 L Total Bilirubin 0.2 AST 13 L ALT 15 Alkaline Phosphatase 99 Total Protein 5.6 L D 5.9 L Albumin 2.5 L D Imaging: ITS Impressions Abdomen/Pelvis CT 01/21/18 08:41 CONCLUSION: 1. There is a large amount of stool in the distal descending colon, the sigmoid and the rectum. There is significant distention. The exam would suggest fecal impaction. 2. There is an indwelling suprapubic catheter. 3. There is no hydronephrosis. Chest X-Ray 01/21/18 08:41 CONCLUSION: No acute cardiopulmonary findings. The small areas of atelectasis in the lung bases seen on previous have resolved. Abdomen X-Ray 01/22/18 06:00 CONCLUSION: Persistent significant amount of air and stool throughout the colon. Distended small bowel. Similar exam to the previous day. Stool density remains overlying the rectum. Physical Exam: GENERAL: awake, and alert, not in acute distress SKIN: Cool and dry, no generalized rash HEAD: Atraumatic. Normocephalic. No temporal or scalp tenderness. EYES: Pupils equal round and reactive. Scleral icterus. No injection or drainage. No petechia ENT: Moist oral mucosa NECK: Trachea midline. Supple, nontender, no meningeal signs. CARDIOVASCULAR: HS audible. RESPIRATORY: Clear to auscultation bilaterally. GASTROINTESTINAL: Abdomen soft nontender. Suprapubic catheter site with no evidence of infection, nontender. MUSCULOSKELETAL: Extremities without clubbing, cyanosis. NEUROLOGICAL: Bilateral lower extremity with contractures and no movement. Bilateral upper extremity with no movement. Speech fairly okay. Psych cooperative IV line sites ok. Assessment and Plan - Plan Rule out sepsis Possible cystitis Suprapubic catheter in place Multiple sclerosis Bedbound status Prior ESBL urinary tract infection Recommendations Continue Zosyn IV for now Follow cultures Follow temps Monitor progress
--- NOTE | 2018-01-23 16:00 | P.PNGI ---
Subjective Interval history: Patient resting comfortably awake and alert Reports one BM last evening Denies abdominal pain or any vomiting States tolerating clear liquid diet well Physical Exam Vital signs: Vital Signs 01/22/18 16:00 01/22/18 20:00 01/22/18 20:12 Temperature 98.5 F 97.8 F Pulse Rate 103 H 93 H 90 Respiratory Rate 18 17 Blood Pressure 117/64 112/79 Pulse Oximetry 92 L 93 L 01/22/18 23:43 01/22/18 23:51 01/23/18 03:53 Temperature 98.4 F Pulse Rate 85 84 81 Respiratory Rate 16 Blood Pressure 122/69 Pulse Oximetry 93 L 01/23/18 04:00 01/23/18 08:00 01/23/18 12:00 Temperature 97.5 F L 97.8 F 97.7 F Pulse Rate 55 L 77 87 Respiratory Rate 16 18 18 Blood Pressure 122/71 114/75 117/80 Pulse Oximetry 97 91 L 95 Intake & Output 01/22/18 01/23/18 01/23/18 18:59 06:59 18:59 Intake Total 2221 / 2221 1220 / 1220 1050 / 1050 Output Total 2500 / 2500 Balance 2221 / 2221 -1280 / -1280 1050 / 1050 Weight 92 kg Intake: IV 2221 / 2221 1100 / 1100 1050 / 1050 NS + KCl 20 mEq Inj 1,000 ML @ 1000 / 1000 1000 / 1000 1000 / 1000 125 mls/hr IV.CONT .Q8H [facility] Rx# :[id number] NS Inj 1,000 ML @ 125 mls/hr IV 1171 / 1171 .CONT .Q8H [facility] Rx#:[id number] Zosyn 3.375 GM Premix 50 ML @ 50 / 50 100 / 100 50 / 50 100 mls/hr IV.SIG Q8H [facility] Rx#: [id number] Oral 120 / 120 Output: Urine 2500 / 2500 Other: Date of Last Bowel Movement 01/22/18 01/23/18 # Bowel Movements 1 - Constitutional no acute distress - Routine HEENT Exam Head: Present: normocephalic - Routine Respiratory Exam Absent: accessory muscle use - Routine Abdominal Exam Present: soft, normoactive bowel sounds, distended. Absent: tenderness, guarding, firm - Routine Skin Exam Present: dry, warm - Routine Neurological Exam Present: alert - Urinary Catheter Management Suprapubic Cath placed during this visit: no Reason for continuing: Chronic Urinary Retention Results - Labs CBC & Chem 7: 01/23/18 07:47 01/23/18 07:47 Laboratory Results - last 24 hr 01/23/18 01/23/18 07:47 07:47 WBC 6.3 RBC 4.12 L Hgb 11.1 L Hct 33.3 L MCV 80.9 MCH 26.9 L MCHC 33.3 RDW 13.8 Plt Count 198 MPV 8.3 Neut % (Auto) 45.9 Lymph % (Auto) 38.3 Dale % (Auto) 9.7 H Eos % (Auto) 5.9 H Baso % (Auto) 0.2 Neut # (Auto) 2.9 Lymph # (Auto) 2.4 Dale # (Auto) 0.6 Eos # (Auto) 0.4 Baso # (Auto) 0.0 WBC Differential . Differential Comment Auto diff final Sodium 142 Potassium 3.6 Chloride 107 Carbon Dioxide 28.1 Anion Gap 7 BUN 6 L Creatinine 0.50 L Estimated GFR Greater than 89 Random Glucose 82 Calcium 7.7 L Total Bilirubin 0.2 AST 13 L ALT 15 Alkaline Phosphatase 99 Total Protein 5.9 L Albumin 2.5 L D Microbiology 01/21/18 09:30 Suprapubic Urine Urine Culture - Preliminary Proteus mirabilis gram negative rods 01/21/18 09:15 Blood - Peripheral Aerobic Blood Culture - Preliminary No growth in 2 days 01/21/18 09:15 Blood - Peripheral Anaerobic Blood Culture - Preliminary No growth in 2 days 01/21/18 09:15 Blood - Peripheral Aerobic Blood Culture - Preliminary No growth in 2 days 01/21/18 09:15 Blood - Peripheral Anaerobic Blood Culture - Preliminary No growth in 2 days Assessment and Plan (1) Fecal impaction Status: Acute Code(s): K56.41 - Fecal impaction - Plan This patient is a 37-year-old male with history of multiple sclerosis, suprapubic catheter placement, hepatitis C, paraplegia, anxiety and blindness. Patient is a resident of a alf facility who was brought to the ER at [facility] with report of nausea. Patient denies vomiting. Patient denies any fever or chills. Upon consultation, patient states that he had a moderately sized soft bowel movement yesterday. He denies any further nausea or abdominal pain. He denies being informed of any noted blood in his stool. States he has never had an EGD or colonoscopy in the past. Our service has been consulted to evaluate patient for fecal impaction. CT revealed large amount of stool in distant colon sigmoid colon and rectum with significant distention Fecal impaction 01/21/2018 CT abdomen and pelvis revealed the following-- 1. There is a large amount of stool in the distal descending colon, the sigmoid and the rectum. There is significant distention. The exam would suggest fecal impaction. 2. There is an indwelling suprapubic catheter. 3. There is no hydronephrosis. WBC 16.7 hemoglobin 13.7 hematocrit 42.9 Total bilirubin 0.2 AST 15 ALT 21 01/22/2018 Fecal impaction Bedside nurse reports patient had 4-5 soft BMs overnight. Abdomen soft with less distention noted 01/22/2018 KUB revealed the following findings : Persistent significant amount of air and stool throughout the colon. Distended small bowel. Similar exam to the previous day. Stool density remains overlying the rectum. 01/23/2018 Fecal impaction Patient reports one BM overnight Hemoglobin 11.1 hematocrit 33.3 total bilirubin 0.2 AST 13 ALT 15 alk phos 99 MiraLAX 17 g p.o. every 6 hours Abdomen soft with less distention, patient denies abdominal discomfort or nausea. Plan -Clear liquid diet -KUB in the a.m. -Continue bowel regimen and monitor stool output -Continue IV hydration -Supportive care -Further recommendations to follow This patient has been seen by myself and Dr. Siddiqui and this note is written on his behalf - Attending Attestation Dr. Siddiqui
[2018-01-23] MEDS: Melatonin 5 MG Tablet PO SCH (21:29)
[2018-01-24] MEDS: Polyethylene Glycol 3350 17 GM Packet PO SCH ×4 (01:06→20:36)
[2018-01-24] MEDS: Gabapentin 400 MG Capsule PO SCH ×4 (01:06→20:38)
[2018-01-24] MEDS: Piperacil/Tazo 3.375 GM Premix 50 ML IV.SIG SCH ×3 (05:00→20:19)
--- NOTE | 2018-01-24 08:45 | XR ---
EXAM DATE: 01/24/2018 8:38 AM EST AGE/SEX: 37 years / Male INDICATIONS: Constipation. CLINICAL DATA: This is the patient's subsequent encounter. Patient reports that signs and symptoms h ave been present for 2 days and indicates a pain score of 5/10. MEDICAL/SURGICAL HISTORY: . Hepatitis C. Multiple sclerosis. Paraplegia. . . Supra pubic cath eter COMPARISON: [facility], ABDOMEN 1V KUB, 01/22/2018. . FINDINGS: The abdominal bowel gas pattern is normal. A moderate amount of stool is seen within the rectal vaul t. No abnormal masses, calcifications, or organomegaly is seen. Advanced osteoarthritis involving the hip joints bilaterally.. CONCLUSION: A moderate amount of stool within the rectal vault. Otherwise, unremarkable exam. Electronically signed by: Benedicto Andrade MD 01/24/2018 8:43 AM EST
[2018-01-24] MEDS: Loratadine 10 MG Tablet PO SCH (09:25)
[2018-01-24] MEDS: Citalopram 20 MG Tablet PO SCH (09:25)
[2018-01-24] MEDS: clonazePAM 1 MG Tablet PO SCH ×2 (09:25→20:38)
[2018-01-24] MEDS: Sodium Chloride 0.9% 2 ML Flush BID IV.FLUSH SCH ×2 (09:29→20:38)
[2018-01-24] MEDS: Docusate Sodium 100 MG Capsule PO SCH ×2 (09:32→20:36)
--- NOTE | 2018-01-24 10:37 | P.PNIM ---
Subjective Interval history: f/u; UTI/ fecal impaction in no acute distress. no new complaints. denies abdominal pain. no fever. Physical Exam Vital signs: Vital Signs 01/23/18 12:00 01/23/18 16:00 01/23/18 19:37 Temperature 97.7 F 98.2 F 98.4 F Pulse Rate 87 87 93 H Respiratory Rate 18 18 16 Blood Pressure 117/80 121/90 118/83 Pulse Oximetry 95 96 94 L 01/23/18 19:54 01/24/18 00:00 01/24/18 00:03 Temperature 98.9 F Pulse Rate 91 H 92 H 88 Respiratory Rate 16 Blood Pressure 119/81 Pulse Oximetry 93 L 01/24/18 03:55 01/24/18 04:00 01/24/18 08:00 Temperature 98.0 F 98.3 F Pulse Rate 93 H 89 91 H Respiratory Rate 16 18 Blood Pressure 128/94 H 123/84 Pulse Oximetry 94 L 93 L Intake & Output 01/23/18 01/24/18 01/24/18 18:59 06:59 18:59 Intake Total 1530 / 1530 2100 / 2100 Output Total 4100 / 4100 2350 / 2350 Balance -2570 / -2570 -250 / -250 Weight 88.6 kg Intake: IV 1050 / 1050 2100 / 2100 NS + KCl 20 mEq Inj 1,000 ML @ 1000 / 1000 2000 / 2000 125 mls/hr IV.CONT .Q8H [facility] Rx# :[id number] Zosyn 3.375 GM Premix 50 ML @ 50 / 50 100 / 100 100 mls/hr IV.SIG Q8H [facility] Rx#: [id number] Oral 480 / 480 Output: Urine 4100 / 4100 Urine Amount (Catheter) 2350 / 2350 Suprapubic 2350 / 2350 Other: Date of Last Bowel Movement 01/23/18 01/23/18 01/23/18 # Bowel Movements 3 # Incontinent Bowel Movements 1 - Constitutional no acute distress - Routine Respiratory Exam Present: CTA bilaterally - Routine Cardiovascular Exam Present: RRR - Routine Abdominal Exam Present: soft - Routine Extremities Exam Comments: no pedal edema. - Routine Neurological Exam Present: alert - Urinary Catheter Management Suprapubic Cath placed during this visit: no Reason for continuing: Chronic Urinary Retention Results - Labs CBC & Chem 7: 01/23/18 07:47 01/23/18 07:47 Microbiology 01/21/18 09:30 Suprapubic Urine Urine Culture - Final Proteus mirabilis Morganella morganii 01/21/18 09:15 Blood - Peripheral Aerobic Blood Culture - Preliminary No growth in 2 days 01/21/18 09:15 Blood - Peripheral Anaerobic Blood Culture - Preliminary No growth in 2 days 01/21/18 09:15 Blood - Peripheral Aerobic Blood Culture - Preliminary No growth in 2 days 01/21/18 09:15 Blood - Peripheral Anaerobic Blood Culture - Preliminary No growth in 2 days - Imaging Impressions Abdomen X-Ray 01/24/18 05:00 CONCLUSION: A moderate amount of stool within the rectal vault. Otherwise, unremarkable exam. Assessment and Plan - Plan A/P - sepsis due to recurrent UTI UC with Klebsiella and Morganella. continue with IV Zosyn- suprapubic catheter was reportedly changed four days ago. awaiting ID f/u and recommendations. -abdominal distention/ fecal impaction - clinically better. continue Laxatives- GI consulted- on liquid diet per GI. -MS continue with muscle relaxant- consulted PT -DVT prophylaxis with subq Lovenox Discharge Planning: SNF when stable- pending ID/GI f/u and recommendations. E-Foarsce was consulted prior to discharge.
[2018-01-24] MEDS ORDERED: Sod Phosphate/Sod Biphosphate (Adult) Enema 133 ML Bottle RECTAL ONE (13:35)
--- NOTE | 2018-01-24 13:40 | P.PNGI ---
Subjective Interval history: Patient resting comfortably with eyes closed Reports 2 large bowel movements overnight Bedside RN reporting same, patient refused MiraLAX and bowel regimen this a.m. No reported vomiting <Katt Irwin - Last Filed: 01/24/18 13:36> Physical Exam Vital signs: Vital Signs 01/23/18 16:00 01/23/18 19:37 01/23/18 19:54 Temperature 98.2 F 98.4 F Pulse Rate 87 93 H 91 H Respiratory Rate 18 16 Blood Pressure 121/90 118/83 Pulse Oximetry 96 94 L 01/24/18 00:00 01/24/18 00:03 01/24/18 03:55 Temperature 98.9 F Pulse Rate 92 H 88 93 H Respiratory Rate 16 Blood Pressure 119/81 Pulse Oximetry 93 L 01/24/18 04:00 01/24/18 08:00 01/24/18 12:00 Temperature 98.0 F 98.3 F 97.6 F Pulse Rate 89 91 H 93 H Respiratory Rate 16 18 18 Blood Pressure 128/94 H 123/84 133/85 Pulse Oximetry 94 L 93 L 91 L Intake & Output 01/23/18 01/24/18 01/24/18 18:59 06:59 18:59 Intake Total 1530 / 1530 2100 / 2100 50 / 50 Output Total 4100 / 4100 2350 / 2350 Balance -2570 / -2570 -250 / -250 50 / 50 Weight 88.6 kg Intake: IV 1050 / 1050 2099 / 2100 50 / 50 NS + KCl 20 mEq Inj 1,000 ML @ 1000 / 1000 2000 / 2000 125 mls/hr IV.CONT .Q8H [facility] Rx# :[id number] Zosyn 3.375 GM Premix 50 ML @ 50 / 50 100 / 100 50 / 50 100 mls/hr IV.SIG Q8H [facility] Rx#: [id number] Oral 480 / 480 Output: Urine 4100 / 4100 Urine Amount (Catheter) 2350 / 2350 Suprapubic 2350 / 2350 Other: Date of Last Bowel Movement 01/23/18 01/23/18 01/23/18 # Bowel Movements 3 # Incontinent Bowel Movements 1 - Constitutional no acute distress - Routine HEENT Exam Head: Present: normocephalic - Routine Respiratory Exam Absent: accessory muscle use - Routine Abdominal Exam Present: soft, normoactive bowel sounds. Absent: firm - Routine Skin Exam Present: dry, warm - Urinary Catheter Management Suprapubic Cath placed during this visit: no Reason for continuing: Chronic Urinary Retention <Katt Irwin - Last Filed: 01/24/18 13:36> Vital signs: Vital Signs 01/23/18 16:00 01/23/18 19:37 01/23/18 19:54 Temperature 98.2 F 98.4 F Pulse Rate 87 93 H 91 H Respiratory Rate 18 16 Blood Pressure 121/90 118/83 Pulse Oximetry 96 94 L 01/24/18 00:00 01/24/18 00:03 01/24/18 03:55 Temperature 98.9 F Pulse Rate 92 H 88 93 H Respiratory Rate 16 Blood Pressure 119/81 Pulse Oximetry 93 L 01/24/18 04:00 01/24/18 08:00 01/24/18 12:00 Temperature 98.0 F 98.3 F 97.6 F Pulse Rate 89 91 H 93 H Respiratory Rate 16 18 18 Blood Pressure 128/94 H 123/84 133/85 Pulse Oximetry 94 L 93 L 91 L Intake & Output 01/23/18 01/24/18 01/24/18 18:59 06:59 18:59 Intake Total 1530 / 1530 2099 / 2100 1050 / 1050 Output Total 4100 / 4100 2350 / 2350 Balance -2570 / -2570 -250 / -250 1050 / 1050 Weight 88.6 kg Intake: IV 1050 / 1050 2099 / 2100 1050 / 1050 NS + KCl 20 mEq Inj 1,000 ML @ 1000 / 1000 2000 / 2000 1000 / 1000 125 mls/hr IV.CONT .Q8H [facility] Rx# :[id number] Zosyn 3.375 GM Premix 50 ML @ 50 / 50 100 / 100 50 / 50 100 mls/hr IV.SIG Q8H [facility] Rx#: [id number] Oral 480 / 480 Output: Urine 4100 / 4100 Urine Amount (Catheter) 2350 / 2350 Suprapubic 2350 / 2350 Other: Date of Last Bowel Movement 01/23/18 01/23/18 01/23/18 # Bowel Movements 3 # Incontinent Bowel Movements 1 - Urinary Catheter Management Suprapubic Cath placed during this visit: no <Valentina Ceballos - Last Filed: 01/24/18 15:39> Results - Labs CBC & Chem 7: 01/23/18 07:47 01/23/18 07:47 Microbiology 01/21/18 09:15 Blood - Peripheral Aerobic Blood Culture - Preliminary No growth in 3 days 01/21/18 09:15 Blood - Peripheral Anaerobic Blood Culture - Preliminary No growth in 3 days 01/21/18 09:15 Blood - Peripheral Aerobic Blood Culture - Preliminary No growth in 3 days 01/21/18 09:15 Blood - Peripheral Anaerobic Blood Culture - Preliminary No growth in 3 days 01/21/18 09:30 Suprapubic Urine Urine Culture - Final Proteus mirabilis Morganella morganii - Imaging Impressions Abdomen X-Ray 01/24/18 05:00 CONCLUSION: A moderate amount of stool within the rectal vault. Otherwise, unremarkable exam. <aKtt Irwin - Last Filed: 01/24/18 13:36> - Labs CBC & Chem 7: 01/23/18 07:47 01/23/18 07:47 Microbiology 01/21/18 09:15 Blood - Peripheral Aerobic Blood Culture - Preliminary No growth in 3 days 01/21/18 09:15 Blood - Peripheral Anaerobic Blood Culture - Preliminary No growth in 3 days 01/21/18 09:15 Blood - Peripheral Aerobic Blood Culture - Preliminary No growth in 3 days 01/21/18 09:15 Blood - Peripheral Anaerobic Blood Culture - Preliminary No growth in 3 days 01/21/18 09:30 Suprapubic Urine Urine Culture - Final Proteus mirabilis Morganella morganii - Imaging Impressions Abdomen X-Ray 01/24/18 05:00 CONCLUSION: A moderate amount of stool within the rectal vault. Otherwise, unremarkable exam. <Valentina Cebalols - Last Filed: 01/24/18 15:39> Assessment and Plan (1) Fecal impaction Status: Acute Code(s): K56.41 - Fecal impaction - Plan This patient is a 37-year-old male with history of multiple sclerosis, suprapubic catheter placement, hepatitis C, paraplegia, anxiety and blindness. Patient is a resident of a longterm facility who was brought to the ER at [facility] with report of nausea. Patient denies vomiting. Patient denies any fever or chills. Upon consultation, patient states that he had a moderately sized soft bowel movement yesterday. He denies any further nausea or abdominal pain. He denies being informed of any noted blood in his stool. States he has never had an EGD or colonoscopy in the past. Our service has been consulted to evaluate patient for fecal impaction. CT revealed large amount of stool in distant colon sigmoid colon and rectum with significant distention Fecal impaction 01/21/2018 CT abdomen and pelvis revealed the following-- 1. There is a large amount of stool in the distal descending colon, the sigmoid and the rectum. There is significant distention. The exam would suggest fecal impaction. 2. There is an indwelling suprapubic catheter. 3. There is no hydronephrosis. WBC 16.7 hemoglobin 13.7 hematocrit 42.9 Total bilirubin 0.2 AST 15 ALT 21 01/22/2018 Fecal impaction Bedside nurse reports patient had 4-5 soft BMs overnight. Abdomen soft with less distention noted 01/22/2018 KUB revealed the following findings : Persistent significant amount of air and stool throughout the colon. Distended small bowel. Similar exam to the previous day. Stool density remains overlying the rectum. 01/23/2018 Fecal impaction Patient reports one BM overnight Hemoglobin 11.1 hematocrit 33.3 total bilirubin 0.2 AST 13 ALT 15 alk phos 99 MiraLAX 17 g p.o. every 6 hours Abdomen soft with less distention, patient denies abdominal discomfort or nausea. 01/24/2018 Fecal impaction Bedside RN reports to large BMs overnight. Patient refused MiraLAX and bowel regimen this a.m. Less distention no reported nausea or vomiting 01/24/2018 KUB revealed the following-- A moderate amount of stool within the rectal vault. Otherwise, unremarkable exam. Plan -Clear liquid diet -Continue bowel regimen and monitor stool output -Continue IV hydration -Fleets enema x1 -Supportive care -Further recommendations to follow This patient has been seen by myself and and this note is written on his behalf - Attending Attestation Dr. Ceballos <Katt Irwin - Last Filed: 01/24/18 13:36> (1) Fecal impaction Status: Acute Code(s): K56.41 - Fecal impaction - Attending Attestation As above, fecal impaction resolving, will follow up with you clinically and follow KUB. <Valentina Ceballos - Last Filed: 01/24/18 15:39>
--- NOTE | 2018-01-24 14:35 | P.PNID ---
Subjective Remarks: Mr. Rosemary Mejia is a 37-year-old male with a past medical history significant for multiple sclerosis who is bedbound and as well as a [facility] resident. Patient has a long-term suprapubic catheter that is changed every month. He reports that the catheter was changed yesterday. It appears that patient was recently admitted and seen by infectious disease and discharged on oral Cipro. Patient reports nausea the night prior to admission with one small episode of emesis. He denies any fever or chills. He does have mild epigastric pain he reports he had a BM and denies any constipation. Infectious diseases consulted for evaluation and management of possible recurrent cystitis. Notes reviewed Temps ok Feels ok BC negative SPC changed one day CENTRAL SUPPLY TECH in [place] CT A/P - result noted Antibiotics: Zosyn Lines: PIV Past Medical History: Suprapubic catheter Anxiety Blind Hepatitis C Insomnia Multiple sclerosis Paraplegia Suprapubic catheter Allergies/Adverse Reactions: Allergies No Known Allergies Allergy (Verified 01/21/18 08:45) Objective Vital Signs 01/23/18 16:00 01/23/18 19:37 01/23/18 19:54 Temperature 98.2 F 98.4 F Pulse Rate 87 93 H 91 H Respiratory Rate 18 16 Blood Pressure 121/90 118/83 Pulse Oximetry 96 94 L 01/24/18 00:00 01/24/18 00:03 01/24/18 03:55 Temperature 98.9 F Pulse Rate 92 H 88 93 H Respiratory Rate 16 Blood Pressure 119/81 Pulse Oximetry 93 L 01/24/18 04:00 01/24/18 08:00 01/24/18 12:00 Temperature 98.0 F 98.3 F 97.6 F Pulse Rate 89 91 H 93 H Respiratory Rate 16 18 18 Blood Pressure 128/94 H 123/84 133/85 Pulse Oximetry 94 L 93 L 91 L Intake & Output 01/23/18 01/24/18 01/24/18 18:59 06:59 18:59 Intake Total 1530 / 1530 2099 / 2099 830 / 830 Output Total 4100 / 4100 2350 / 2350 Balance -2570 / -2570 -250 / -250 830 / 830 Weight 88.6 kg Intake: IV 1050 / 1050 2099 / 2099 830 / 830 NS + KCl 20 mEq Inj 1,000 ML @ 1000 / 1000 1999 / 1999 780 / 780 125 mls/hr IV.CONT .Q8H [facility] Rx# :[id number] Zosyn 3.375 GM Premix 50 ML @ 50 / 50 100 / 100 50 / 50 100 mls/hr IV.SIG Q8H [facility] Rx#: [id number] Oral 480 / 480 Output: Urine 4100 / 4100 Urine Amount (Catheter) 2350 / 2350 Suprapubic 2350 / 2350 Other: Date of Last Bowel Movement 01/23/18 01/23/18 01/23/18 # Bowel Movements 3 # Incontinent Bowel Movements 1 01/21/18 09:15 Blood - Peripheral Aerobic Blood Culture - Preliminary No growth in 3 days 01/21/18 09:15 Blood - Peripheral Anaerobic Blood Culture - Preliminary No growth in 3 days 01/21/18 09:15 Blood - Peripheral Aerobic Blood Culture - Preliminary No growth in 3 days 01/21/18 09:15 Blood - Peripheral Anaerobic Blood Culture - Preliminary No growth in 3 days 01/21/18 09:30 Suprapubic Urine Urine Culture - Final Proteus mirabilis Morganella morganii 01/21/18 09:30 Nasal Wash Influenza Types A,B Antigen - Final Negative for FLU A and B antigen Infection due to influenza A or B cannot be ruled out since the antigen present in the sample may be below the detection limit of the test. Lab - Hematology Results 01/23/18 07:47 WBC 6.3 RBC 4.12 L Hgb 11.1 L Hct 33.3 L MCV 80.9 MCH 26.9 L MCHC 33.3 RDW 13.8 Plt Count 198 MPV 8.3 Neut % (Auto) 45.9 Lymph % (Auto) 38.3 Wake % (Auto) 9.7 H Eos % (Auto) 5.9 H Baso % (Auto) 0.2 Neut # (Auto) 2.9 Lymph # (Auto) 2.4 Wake # (Auto) 0.6 Eos # (Auto) 0.4 Baso # (Auto) 0.0 WBC Differential . Differential Comment Auto diff final Lab - Chemistry Results 01/23/18 07:47 Sodium 142 Potassium 3.6 Chloride 107 Carbon Dioxide 28.1 Anion Gap 7 BUN 6 L Creatinine 0.50 L Estimated GFR Greater than 89 Random Glucose 82 Calcium 7.7 L Total Bilirubin 0.2 AST 13 L ALT 15 Alkaline Phosphatase 99 Total Protein 5.9 L Albumin 2.5 L D Imaging: ITS Impressions Abdomen/Pelvis CT 01/21/18 08:41 CONCLUSION: 1. There is a large amount of stool in the distal descending colon, the sigmoid and the rectum. There is significant distention. The exam would suggest fecal impaction. 2. There is an indwelling suprapubic catheter. 3. There is no hydronephrosis. Chest X-Ray 01/21/18 08:41 CONCLUSION: No acute cardiopulmonary findings. The small areas of atelectasis in the lung bases seen on previous have resolved. Abdomen X-Ray 01/24/18 05:00 CONCLUSION: A moderate amount of stool within the rectal vault. Otherwise, unremarkable exam. Physical Exam: GENERAL: awake, and alert, not in acute distress SKIN: Cool and dry, no generalized rash HEAD: Atraumatic. Normocephalic. No temporal or scalp tenderness. EYES: Pupils equal round and reactive. Scleral icterus. No injection or drainage. No petechia ENT: Moist oral mucosa NECK: Trachea midline. Supple, nontender, no meningeal signs. CARDIOVASCULAR: HS audible. RESPIRATORY: Clear to auscultation bilaterally. GASTROINTESTINAL: Abdomen soft nontender. Suprapubic catheter site with no evidence of infection, nontender. MUSCULOSKELETAL: Extremities without clubbing, cyanosis. NEUROLOGICAL: Bilateral lower extremity with contractures and no movement. Bilateral upper extremity with no movement. Speech fairly okay. Psych cooperative IV line sites ok. Assessment and Plan - Plan Rule out sepsis Possible cystitis Suprapubic catheter in place Multiple sclerosis Bedbound status Prior ESBL urinary tract infection Recommendations Continue Zosyn IV for now Ok to discharge on oral Cefpodoxime (Vantin) or Augmentin on discharge dw . Will sign off please call back if any change in clinical condition or questions.
[2018-01-24] MEDS: Melatonin 5 MG Tablet PO SCH (20:38)
[2018-01-25] MEDS: Polyethylene Glycol 3350 17 GM Packet PO SCH ×4 (01:56→21:11)
[2018-01-25] MEDS: Gabapentin 400 MG Capsule PO SCH ×4 (01:56→21:11)
[2018-01-25] MEDS: Piperacil/Tazo 3.375 GM Premix 50 ML IV.SIG SCH ×3 (04:32→21:11)
[2018-01-25] MEDS: clonazePAM 1 MG Tablet PO SCH ×2 (09:46→21:11)
[2018-01-25] MEDS: Citalopram 20 MG Tablet PO SCH (09:46)
[2018-01-25] MEDS: Docusate Sodium 100 MG Capsule PO SCH ×2 (09:46→21:11)
[2018-01-25] MEDS: Loratadine 10 MG Tablet PO SCH (09:46)
--- NOTE | 2018-01-25 10:44 | P.PNIM ---
Subjective Interval history: f/u; UTI/ constipation in no acute distress. no fever. denies abdominal pain or nausea. Physical Exam Vital signs: Vital Signs 01/24/18 12:00 01/24/18 16:00 01/24/18 20:00 Temperature 97.6 F 97.4 F L 98.9 F Pulse Rate 101 H 84 69 Respiratory Rate 18 20 18 Blood Pressure 133/85 120/81 136/92 H Pulse Oximetry 91 L 95 96 01/25/18 00:00 01/25/18 04:00 01/25/18 08:00 Temperature 97.7 F 98.1 F 97.3 F L Pulse Rate 72 83 88 Respiratory Rate 17 19 15 Blood Pressure 115/78 126/79 Pulse Oximetry 94 L 93 L 95 Intake & Output 01/24/18 01/25/18 01/25/18 18:59 06:59 18:59 Intake Total 1530 / 1530 1829 / 1829 Output Total 2200 / 2200 1600 / 1600 Balance -670 / -670 229 / 229 Weight 85.9 kg Intake: IV 1050 / 1050 1709 / 1709 NS + KCl 20 mEq Inj 1,000 ML @ 1000 / 1000 1609 / 1609 125 mls/hr IV.CONT .Q8H [facility] Rx# :[id number] Zosyn 3.375 GM Premix 50 ML @ 50 / 50 100 / 100 100 mls/hr IV.SIG Q8H [facility] Rx#: [id number] Oral 480 / 480 120 / 120 Output: Urine 2200 / 2200 Urine Amount (Catheter) 1600 / 1600 Suprapubic 1600 / 1600 Other: Date of Last Bowel Movement 01/24/18 # Bowel Movements 2 - Constitutional no acute distress - Routine Respiratory Exam Present: CTA bilaterally - Routine Cardiovascular Exam Present: RRR - Routine Abdominal Exam Present: soft - Routine Extremities Exam Comments: no pedal edema. - Routine Neurological Exam Present: alert, oriented X3 - Urinary Catheter Management Suprapubic Cath placed during this visit: no Reason for continuing: Chronic Urinary Retention Results - Labs CBC & Chem 7: 01/23/18 07:47 01/23/18 07:47 Microbiology 01/21/18 09:15 Blood - Peripheral Aerobic Blood Culture - Preliminary No growth in 3 days 01/21/18 09:15 Blood - Peripheral Anaerobic Blood Culture - Preliminary No growth in 3 days 01/21/18 09:15 Blood - Peripheral Aerobic Blood Culture - Preliminary No growth in 3 days 01/21/18 09:15 Blood - Peripheral Anaerobic Blood Culture - Preliminary No growth in 3 days 01/21/18 09:30 Suprapubic Urine Urine Culture - Final Proteus mirabilis Morganella morganii Assessment and Plan - Plan A/P - sepsis due to recurrent UTI UC with Klebsiella and Morganella. continue with IV Zosyn for now- suprapubic catheter was reportedly changed four days ago. will discharge on po Augmentin upon discharge. -abdominal distention/ fecal impaction - clinically better. continue Laxatives- GI consulted- on liquid diet per GI. repeat KUB today. -MS continue with muscle relaxant- consulted PT -DVT prophylaxis with subq Lovenox Discharge Planning: SNF when cleared by GI/ pending KUB today. [facility] was consulted prior to discharge.
--- NOTE | 2018-01-25 11:03 | XR ---
EXAM DATE: 01/25/2018 10:56 AM EST AGE/SEX: 37 years / Male INDICATIONS: Constipation, abdominal pain CLINICAL DATA: This is the patient's subsequent encounter. Patient reports that signs and symptoms h ave been present for 3 days and indicates a pain score of Nonresponsive. MEDICAL/SURGICAL HISTORY: Hepatitis C. Multiple sclerosis. paraplegia, sepsis, UTI . suprapub ic catheter COMPARISON: [facility], ABDOMEN 1V KUB, 01/24/2018. . FINDINGS: A large rectosigmoid fecal bolus is noted. There is proximal gaseous distention of the GI tract. The re is no pathologic distention or evidence of mass effect. There is no evidence of free air. CONCLUSION: Rectosigmoid fecal impaction. Electronically signed by: Kota Wilson MD 01/25/2018 11:02 AM EST
[2018-01-25] MEDS: Sodium Chloride 0.9% 2 ML Flush BID IV.FLUSH SCH ×2 (11:47→21:11)
--- NOTE | 2018-01-25 16:50 | P.PNGI ---
Subjective Interval history: Patient awake and alert denies abdominal pain or discomfort States once diet advanced from clear liquids <Katt Irwin - Last Filed: 01/25/18 16:46> Physical Exam Vital signs: Vital Signs 01/24/18 20:00 01/25/18 00:00 01/25/18 04:00 Temperature 98.9 F 97.7 F 98.1 F Pulse Rate 69 72 83 Respiratory Rate 18 17 19 Blood Pressure 136/92 H 115/78 Pulse Oximetry 96 94 L 93 L 01/25/18 08:00 01/25/18 12:00 01/25/18 16:00 Temperature 97.3 F L 98.7 F 98.6 F Pulse Rate 79 81 86 Respiratory Rate 15 15 15 Blood Pressure 126/79 130/84 130/83 Pulse Oximetry 95 94 L 96 Intake & Output 01/24/18 01/25/18 01/25/18 18:59 06:59 18:59 Intake Total 1530 / 1530 1829 / 1829 441 / 441 Output Total 2200 / 2200 1600 / 1600 Balance -670 / -670 229 / 229 441 / 441 Weight 85.9 kg Intake: IV 1050 / 1050 1709 / 1709 441 / 441 NS + KCl 20 mEq Inj 1,000 ML @ 1000 / 1000 1609 / 1609 391 / 391 125 mls/hr IV.CONT .Q8H [facility] Rx# :[id number] Zosyn 3.375 GM Premix 50 ML @ 50 / 50 100 / 100 50 / 50 100 mls/hr IV.SIG Q8H [facility] Rx#: [id number] Oral 480 / 480 120 / 120 Output: Urine 2200 / 2200 Urine Amount (Catheter) 1600 / 1600 Suprapubic 1600 / 1600 Other: Date of Last Bowel Movement 01/24/18 01/24/18 # Bowel Movements 2 - Constitutional no acute distress - Routine HEENT Exam Head: Present: normocephalic - Routine Respiratory Exam Present: CTA bilaterally - Routine Abdominal Exam Present: soft. Absent: tenderness, guarding, firm Comments: Decreased bowel sounds - Routine Skin Exam Present: dry, warm - Routine Neurological Exam Present: alert, oriented X3 - Urinary Catheter Management Suprapubic Cath placed during this visit: no Reason for continuing: Chronic Urinary Retention <DcKatt - Last Filed: 01/25/18 16:46> Vital signs: Vital Signs 01/25/18 12:00 01/25/18 16:00 01/25/18 17:50 Temperature 98.7 F 98.6 F Pulse Rate 67 79 Respiratory Rate 15 15 Blood Pressure 130/84 130/83 Pulse Oximetry 94 L 96 96 01/25/18 20:00 01/26/18 00:00 01/26/18 04:00 Temperature 98 F 97.8 F 97.8 F Pulse Rate 88 90 98 H Respiratory Rate 19 19 Blood Pressure 143/88 H 135/91 H 114/75 Pulse Oximetry 97 95 94 L 01/26/18 08:00 Temperature 97.5 F L Pulse Rate 87 Respiratory Rate 20 Blood Pressure 129/78 Pulse Oximetry 96 Intake & Output 01/25/18 01/26/18 01/26/18 18:59 06:59 18:59 Intake Total 1281 / 1281 2900 / 2900 Output Total 1600 / 1600 1600 / 1600 Balance -319 / -319 1300 / 1300 Weight 87.7 kg Intake: IV 441 / 441 2100 / 2100 NS + KCl 20 mEq Inj 1,000 ML @ 391 / 391 2000 / 2000 125 mls/hr IV.CONT .Q8H [facility] Rx# :[id number] Zosyn 3.375 GM Premix 50 ML @ 50 / 50 100 / 100 100 mls/hr IV.SIG Q8H [facility] Rx#: [id number] Oral 840 / 840 800 / 800 Output: Urine 1600 / 1600 Urine Amount (Catheter) 1600 / 1600 Suprapubic 1600 / 1600 Other: Date of Last Bowel Movement 01/24/18 - Urinary Catheter Management Suprapubic Cath placed during this visit: no <Valentina Ceballos A - Last Filed: 01/26/18 09:27> Results - Labs CBC & Chem 7: 01/23/18 07:47 01/23/18 07:47 Microbiology 01/21/18 09:15 Blood - Peripheral Aerobic Blood Culture - Preliminary No growth in 4 days 01/21/18 09:15 Blood - Peripheral Anaerobic Blood Culture - Preliminary No growth in 4 days 01/21/18 09:15 Blood - Peripheral Aerobic Blood Culture - Preliminary No growth in 4 days 01/21/18 09:15 Blood - Peripheral Anaerobic Blood Culture - Preliminary No growth in 4 days - Imaging Impressions Abdomen X-Ray 01/25/18 09:43 CONCLUSION: Rectosigmoid fecal impaction. <Katt Irwin - Last Filed: 01/25/18 16:46> - Labs CBC & Chem 7: 01/23/18 07:47 01/23/18 07:47 Microbiology 01/21/18 09:15 Blood - Peripheral Aerobic Blood Culture - Preliminary No growth in 4 days 01/21/18 09:15 Blood - Peripheral Anaerobic Blood Culture - Preliminary No growth in 4 days 01/21/18 09:15 Blood - Peripheral Aerobic Blood Culture - Preliminary No growth in 4 days 01/21/18 09:15 Blood - Peripheral Anaerobic Blood Culture - Preliminary No growth in 4 days - Imaging Impressions Abdomen X-Ray 01/25/18 09:43 CONCLUSION: Rectosigmoid fecal impaction. <Valentina Ceballos - Last Filed: 01/26/18 09:27> Assessment and Plan (1) Fecal impaction Status: Acute Code(s): K56.41 - Fecal impaction - Plan This patient is a 37-year-old male with history of multiple sclerosis, suprapubic catheter placement, hepatitis C, paraplegia, anxiety and blindness. Patient is a resident of a detention facility who was brought to the ER at [facility] [place] with report of nausea. Patient denies vomiting. Patient denies any fever or chills. Upon consultation, patient states that he had a moderately sized soft bowel movement yesterday. He denies any further nausea or abdominal pain. He denies being informed of any noted blood in his stool. States he has never had an EGD or colonoscopy in the past. Our service has been consulted to evaluate patient for fecal impaction. CT revealed large amount of stool in distant colon sigmoid colon and rectum with significant distention Fecal impaction 01/21/2018 CT abdomen and pelvis revealed the following-- 1. There is a large amount of stool in the distal descending colon, the sigmoid and the rectum. There is significant distention. The exam would suggest fecal impaction. 2. There is an indwelling suprapubic catheter. 3. There is no hydronephrosis. WBC 16.7 hemoglobin 13.7 hematocrit 42.9 Total bilirubin 0.2 AST 15 ALT 21 01/22/2018 Fecal impaction Bedside nurse reports patient had 4-5 soft BMs overnight. Abdomen soft with less distention noted 01/22/2018 KUB revealed the following findings : Persistent significant amount of air and stool throughout the colon. Distended small bowel. Similar exam to the previous day. Stool density remains overlying the rectum. 01/23/2018 Fecal impaction Patient reports one BM overnight Hemoglobin 11.1 hematocrit 33.3 total bilirubin 0.2 AST 13 ALT 15 alk phos 99 MiraLAX 17 g p.o. every 6 hours Abdomen soft with less distention, patient denies abdominal discomfort or nausea. 01/24/2018 Fecal impaction Bedside RN reports to large BMs overnight. Patient refused MiraLAX and bowel regimen this a.m. Less distention no reported nausea or vomiting 01/24/2018 KUB revealed the following-- A moderate amount of stool within the rectal vault. Otherwise, unremarkable exam. 01/25/2018 Fecal impaction Bedside RN reports 2 large BMs overnight and documented MiraLAX p.o. every 6 hours 01/25/2018 KUB--Rectosigmoid fecal impaction. Plan -Clear liquid diet -Continue bowel regimen and monitor stool output -Continue IV hydration -Soapsuds enemas x2 -Supportive care -Further recommendations to follow This patient has been seen by myself and and this note is written on his behalf - Attending Attestation Dr. Ceballos <Katt Irwin - Last Filed: 01/25/18 16:46> (1) Fecal impaction Status: Acute Code(s): K56.41 - Fecal impaction - Attending Attestation Had several BM's over the last 24 hours. Will follow up with KUB. Further recommendations to follow. <Valentina Ceballos - Last Filed: 01/26/18 09:27>
[2018-01-25] MEDS: Melatonin 5 MG Tablet PO SCH (21:11)
[2018-01-26] MEDS: Polyethylene Glycol 3350 17 GM Packet PO SCH ×3 (02:35→15:31)
[2018-01-26] MEDS: Gabapentin 400 MG Capsule PO SCH ×3 (02:35→15:34)
[2018-01-26] MEDS: Piperacil/Tazo 3.375 GM Premix 50 ML IV.SIG SCH ×2 (04:47→12:30)
--- NOTE | 2018-01-26 09:07 | P.PNIM ---
Subjective Interval history: f/u; UTI/ constipation in no acute distress. no fever. had a BM last night. no abdominal pain. Physical Exam Vital signs: Vital Signs 01/25/18 12:00 01/25/18 16:00 01/25/18 17:50 Temperature 98.7 F 98.6 F Pulse Rate 67 79 Respiratory Rate 15 15 Blood Pressure 130/84 130/83 Pulse Oximetry 94 L 96 96 01/25/18 20:00 01/26/18 00:00 01/26/18 04:00 Temperature 98 F 97.8 F 97.8 F Pulse Rate 88 90 98 H Respiratory Rate 19 19 Blood Pressure 143/88 H 135/91 H 114/75 Pulse Oximetry 97 95 94 L Intake & Output 01/25/18 01/26/18 01/26/18 18:59 06:59 18:59 Intake Total 1281 / 1281 2900 / 2900 Output Total 1600 / 1600 1600 / 1600 Balance -319 / -319 1300 / 1300 Weight 87.7 kg Intake: IV 441 / 441 2100 / 2100 NS + KCl 20 mEq Inj 1,000 ML @ 391 / 391 2000 / 2000 125 mls/hr IV.CONT .Q8H [facility] Rx# :[id number] Zosyn 3.375 GM Premix 50 ML @ 50 / 50 100 / 100 100 mls/hr IV.SIG Q8H [facility] Rx#: [id number] Oral 840 / 840 800 / 800 Output: Urine 1600 / 1600 Urine Amount (Catheter) 1600 / 1600 Suprapubic 1600 / 1600 Other: Date of Last Bowel Movement 01/24/18 - Constitutional no acute distress - Routine Respiratory Exam Present: CTA bilaterally - Routine Cardiovascular Exam Present: RRR - Routine Abdominal Exam Present: soft - Routine Extremities Exam Comments: no pedal edema. - Routine Neurological Exam Present: alert, oriented X3 - Urinary Catheter Management Suprapubic Cath placed during this visit: no Reason for continuing: Not indwelling catheter Results - Labs CBC & Chem 7: 01/23/18 07:47 01/23/18 07:47 Microbiology 01/21/18 09:15 Blood - Peripheral Aerobic Blood Culture - Preliminary No growth in 4 days 01/21/18 09:15 Blood - Peripheral Anaerobic Blood Culture - Preliminary No growth in 4 days 01/21/18 09:15 Blood - Peripheral Aerobic Blood Culture - Preliminary No growth in 4 days 01/21/18 09:15 Blood - Peripheral Anaerobic Blood Culture - Preliminary No growth in 4 days - Imaging Impressions Abdomen X-Ray 01/25/18 09:43 CONCLUSION: Rectosigmoid fecal impaction. - Procedures none. Assessment and Plan - Plan A/P - sepsis due to recurrent UTI UC with Klebsiella and Morganella. continue with IV Zosyn for now- suprapubic catheter was reportedly changed few days ago. will discharge on po Augmentin upon discharge. -abdominal distention/ fecal impaction - clinically better. continue Laxatives- GI consulted- diet has been advanced per GI. -MS continue with muscle relaxant- consulted PT -DVT prophylaxis with subq Lovenox Discharge Planning: SNF when cleared by GI- likely today. see med list. f/u; pcp. d/w the patient and [facility]. [facility] was consulted prior to discharge.
--- NOTE | 2018-01-26 09:09 | P.DS ---
Date of admission: 01/21/18 14:15 Primary care physician: Chris William MD Brief History from admission: patient is a 37 y/o male with history of MS, s/p suprapubic catheter placement, long term resident, who was brought to ER with nausea. he was admitted to this hospital and discharged to SNF about three weeks ago after he was treated for UTI. he says that he finished ten-day course of Cipro after he was released from the hospital. he says that he started to have nausea last night. he had one small episode of emesis. he says that his urine catheter was changed yesterday. he denies any fever, chills. but had mild epigastric pain. he says that he had a BM last night and also one small BM earlier today. DS: Medications - Discharge Medications Prescriptions: clonazepam 1 mg PO BID #4 tab DS: Summary Hospital Course: - sepsis due to recurrent UTI UC with Klebsiella and Morganella. continue with IV Zosyn for now- suprapubic catheter was reportedly changed few days ago. will discharge on po Augmentin upon discharge. -abdominal distention/ fecal impaction - clinically better. continue Laxatives- GI consulted- diet has been advanced per GI. -MS continue with muscle relaxant- consulted PT -DVT prophylaxis with subq Lovenox - Time Spent with Patient Total time spent providing and/or coordinating discharge services: Less than 30 minutes - Quality: VTE Deep Vein Thrombosis/Pulmonary Embolism Present on Admission: No Exam Vital signs: Vital Signs 01/25/18 12:00 01/25/18 16:00 01/25/18 17:50 Temperature 98.7 F 98.6 F Pulse Rate 67 79 Respiratory Rate 15 15 Blood Pressure 130/84 130/83 Pulse Oximetry 94 L 96 96 01/25/18 20:00 01/26/18 00:00 01/26/18 04:00 Temperature 98 F 97.8 F 97.8 F Pulse Rate 88 90 98 H Respiratory Rate 19 19 Blood Pressure 143/88 H 135/91 H 114/75 Pulse Oximetry 97 95 94 L 01/26/18 08:00 Temperature 97.5 F L Pulse Rate 87 Respiratory Rate 20 Blood Pressure 129/78 Pulse Oximetry 96 Intake & Output 01/25/18 01/26/18 01/26/18 18:59 06:59 18:59 Intake Total 1281 / 1281 2900 / 2900 Output Total 1600 / 1600 1600 / 1600 Balance -319 / -319 1300 / 1300 Weight 87.7 kg Intake: IV 441 / 441 2100 / 2100 NS + KCl 20 mEq Inj 1,000 ML @ 391 / 391 2000 / 2000 125 mls/hr IV.CONT .Q8H [facility] Rx# :[id number] Zosyn 3.375 GM Premix 50 ML @ 50 / 50 100 / 100 100 mls/hr IV.SIG Q8H [facility] Rx#: [id number] Oral 840 / 840 800 / 800 Output: Urine 1600 / 1600 Urine Amount (Catheter) 1600 / 1600 Suprapubic 1600 / 1600 Other: Date of Last Bowel Movement 01/24/18 - Constitutional no acute distress - Routine Respiratory Exam Present: CTA bilaterally - Routine Cardiovascular Exam Present: RRR - Routine Abdominal Exam Present: soft - Routine Extremities Exam Comments: no pedal edema. - Routine Neurological Exam Present: alert, oriented X3 Results Procedures completed during hospitalization: none. Labs on day of discharge: Preliminary micro results at discharge 01/21/18 09:15 Aerobic Blood Culture - Preliminary Blood - Peripheral No growth in 4 days Anaerobic Blood Culture - Preliminary No growth in 4 days 01/21/18 09:15 Aerobic Blood Culture - Preliminary Blood - Peripheral No growth in 4 days Anaerobic Blood Culture - Preliminary No growth in 4 days - Impressions ITS Impressions Abdomen/Pelvis CT 01/21/18 08:41 CONCLUSION: 1. There is a large amount of stool in the distal descending colon, the sigmoid and the rectum. There is significant distention. The exam would suggest fecal impaction. 2. There is an indwelling suprapubic catheter. 3. There is no hydronephrosis. Chest X-Ray 01/21/18 08:41 CONCLUSION: No acute cardiopulmonary findings. The small areas of atelectasis in the lung bases seen on previous have resolved. Abdomen X-Ray 01/25/18 09:43 CONCLUSION: Rectosigmoid fecal impaction. Discharge Plan - Discharge Disposition Patient Disposition: Discharge to SNF - Discharge Condition Condition: Fair - Physicians Team Primary Care Provider: Chris William Attending Provider: Cassie Kenney Other Providers: Brock Crandall MD ; Helen Horton MD ; [employer]
[2018-01-26] MEDS: Citalopram 20 MG Tablet PO SCH (09:25)
[2018-01-26] MEDS: clonazePAM 1 MG Tablet PO SCH (09:25)
[2018-01-26] MEDS: Docusate Sodium 100 MG Capsule PO SCH (09:25)
[2018-01-26] MEDS: Loratadine 10 MG Tablet PO SCH (09:25)
[2018-01-26] MEDS: Sodium Chloride 0.9% 2 ML Flush BID IV.FLUSH SCH (09:29)
--- NOTE | 2018-01-26 10:54 | P.PNGI ---
Subjective Interval history: Pt is resting in bed, no nausea, no vomiting, no abd pain. Had bm last night <Garcia Franco - Last Filed: 01/26/18 10:50> Physical Exam Vital signs: Vital Signs 01/25/18 12:00 01/25/18 16:00 01/25/18 17:50 Temperature 98.7 F 98.6 F Pulse Rate 67 79 Respiratory Rate 15 15 Blood Pressure 130/84 130/83 Pulse Oximetry 94 L 96 96 01/25/18 20:00 01/26/18 00:00 01/26/18 04:00 Temperature 98 F 97.8 F 97.8 F Pulse Rate 88 90 98 H Respiratory Rate 19 19 Blood Pressure 143/88 H 135/91 H 114/75 Pulse Oximetry 97 95 94 L 01/26/18 08:00 Temperature 97.5 F L Pulse Rate 87 Respiratory Rate 20 Blood Pressure 129/78 Pulse Oximetry 96 Intake & Output 01/25/18 01/26/18 01/26/18 18:59 06:59 18:59 Intake Total 1281 / 1281 2900 / 2900 Output Total 1600 / 1600 1600 / 1600 Balance -319 / -319 1300 / 1300 Weight 87.7 kg Intake: IV 441 / 441 2100 / 2100 NS + KCl 20 mEq Inj 1,000 ML @ 391 / 391 2000 / 2000 125 mls/hr IV.CONT .Q8H [facility] Rx# :[id number] Zosyn 3.375 GM Premix 50 ML @ 50 / 50 100 / 100 100 mls/hr IV.SIG Q8H [facility] Rx#: [id number] Oral 840 / 840 800 / 800 Output: Urine 1600 / 1600 Urine Amount (Catheter) 1600 / 1600 Suprapubic 1600 / 1600 Other: Date of Last Bowel Movement 01/24/18 01/24/18 Narrative: GENERAL: Well-nourished well-developed, not in acute distress SKIN: Cool and dry, no generalized rash NECK: Trachea midline. Supple, nontender, no meningeal signs. CARDIOVASCULAR: RRR RESPIRATORY: Clear to auscultation bilaterally. GASTROINTESTINAL: Abdomen soft nontender. Suprapubic catheter MUSCULOSKELETAL: Bilateral lower extremity with contractures and no movement. Bilateral upper extremity with no movement. NEUROLOGICAL: Speech fairly okay. Psych: cooperative - Urinary Catheter Management Suprapubic Cath placed during this visit: no Reason for continuing: Not indwelling catheter <Garcia Franco - Last Filed: 01/26/18 10:50> Vital signs: Vital Signs 01/25/18 16:00 01/25/18 17:50 01/25/18 20:00 Temperature 98.6 F 98 F Pulse Rate 79 88 Respiratory Rate 15 19 Blood Pressure 130/83 143/88 H Pulse Oximetry 96 96 97 01/26/18 00:00 01/26/18 04:00 01/26/18 08:00 Temperature 97.8 F 97.8 F 97.5 F L Pulse Rate 90 98 H 87 Respiratory Rate 19 20 Blood Pressure 135/91 H 114/75 129/78 Pulse Oximetry 95 94 L 96 01/26/18 12:00 Temperature 97.6 F Pulse Rate 101 H Respiratory Rate 18 Blood Pressure 120/75 Pulse Oximetry 97 Intake & Output 01/25/18 01/26/18 01/26/18 18:59 06:59 18:59 Intake Total 1281 / 1281 2900 / 2900 Output Total 1600 / 1600 1600 / 1600 Balance -319 / -319 1300 / 1300 Weight 87.7 kg Intake: IV 441 / 441 2100 / 2100 NS + KCl 20 mEq Inj 1,000 ML @ 391 / 391 2000 / 2000 125 mls/hr IV.CONT .Q8H [facility] Rx# :[id number] Zosyn 3.375 GM Premix 50 ML @ 50 / 50 100 / 100 100 mls/hr IV.SIG Q8H [facility] Rx#: [id number] Oral 840 / 840 800 / 800 Output: Urine 1600 / 1600 Urine Amount (Catheter) 1600 / 1600 Suprapubic 1600 / 1600 Other: Date of Last Bowel Movement 01/24/18 01/24/18 - Urinary Catheter Management Suprapubic Cath placed during this visit: no <Valentina Ceballos - Last Filed: 01/26/18 14:36> Results - Labs CBC & Chem 7: 01/23/18 07:47 01/23/18 07:47 Microbiology 01/21/18 09:15 Blood - Peripheral Aerobic Blood Culture - Preliminary No growth in 4 days 01/21/18 09:15 Blood - Peripheral Anaerobic Blood Culture - Preliminary No growth in 4 days 01/21/18 09:15 Blood - Peripheral Aerobic Blood Culture - Preliminary No growth in 4 days 01/21/18 09:15 Blood - Peripheral Anaerobic Blood Culture - Preliminary No growth in 4 days - Imaging Impressions Abdomen X-Ray 01/25/18 09:43 CONCLUSION: Rectosigmoid fecal impaction. - Procedures none. <Garcia Franco - Last Filed: 01/26/18 10:50> - Labs CBC & Chem 7: 01/23/18 07:47 01/23/18 07:47 Microbiology 01/21/18 09:15 Blood - Peripheral Aerobic Blood Culture - Final No growth in 5 days 01/21/18 09:15 Blood - Peripheral Anaerobic Blood Culture - Final No growth in 5 days 01/21/18 09:15 Blood - Peripheral Aerobic Blood Culture - Final No growth in 5 days 01/21/18 09:15 Blood - Peripheral Anaerobic Blood Culture - Final No growth in 5 days <Valentina Ceballos - Last Filed: 01/26/18 14:36> Assessment and Plan (1) Fecal impaction Status: Acute Code(s): K56.41 - Fecal impaction - Plan This patient is a 37-year-old male with history of multiple sclerosis, suprapubic catheter placement, hepatitis C, paraplegia, anxiety and blindness. Patient is a resident of a group home facility who was brought to the ER at [facility] with report of nausea. Patient denies vomiting. Patient denies any fever or chills. Upon consultation, patient states that he had a moderately sized soft bowel movement yesterday. He denies any further nausea or abdominal pain. He denies being informed of any noted blood in his stool. States he has never had an EGD or colonoscopy in the past. Our service has been consulted to evaluate patient for fecal impaction. CT revealed large amount of stool in distant colon sigmoid colon and rectum with significant distention Fecal impaction 01/21/2018 CT abdomen and pelvis revealed the following-- 1. There is a large amount of stool in the distal descending colon, the sigmoid and the rectum. There is significant distention. The exam would suggest fecal impaction. 2. There is an indwelling suprapubic catheter. 3. There is no hydronephrosis. WBC 16.7 hemoglobin 13.7 hematocrit 42.9 Total bilirubin 0.2 AST 15 ALT 21 01/22/2018 Fecal impaction Bedside nurse reports patient had 4-5 soft BMs overnight. Abdomen soft with less distention noted 01/22/2018 KUB revealed the following findings : Persistent significant amount of air and stool throughout the colon. Distended small bowel. Similar exam to the previous day. Stool density remains overlying the rectum. 01/23/2018 Fecal impaction Patient reports one BM overnight Hemoglobin 11.1 hematocrit 33.3 total bilirubin 0.2 AST 13 ALT 15 alk phos 99 MiraLAX 17 g p.o. every 6 hours Abdomen soft with less distention, patient denies abdominal discomfort or nausea. 01/24/2018 Fecal impaction Bedside RN reports to large BMs overnight. Patient refused MiraLAX and bowel regimen this a.m. Less distention no reported nausea or vomiting 01/24/2018 KUB revealed the following-- A moderate amount of stool within the rectal vault. Otherwise, unremarkable exam. 01/25/2018 Fecal impaction Bedside RN reports 2 large BMs overnight and documented MiraLAX p.o. every 6 hours 01/25/2018 KUB--Rectosigmoid fecal impaction. 01/26/18 Fecal impaction- Resolved, Pt is moving his bowels Plan -Continue bowel regimen and monitor stool output - Ok to Dc home -Supportive care -Further recommendations to follow This patient has been seen by myself and and this note is written on his behalf <Garcia Franco - Last Filed: 01/26/18 10:50> (1) Fecal impaction Status: Acute Code(s): K56.41 - Fecal impaction - Attending Attestation As above, stable from GI point of view for discharge. Follow up at the office. <Valentina Ceballos - Last Filed: 01/26/18 14:36>
[2018-01-26 13:28] VITALS: RESP 18
[2018-01-26 17:21] VITALS: BP 117/88; PULSE 112; TEMP 98.6; O2SAT 95
== END 2018-01-26 16:53 ==
LOC: NEPC 08:38 → NEDA 14:15 → N04 17:09
PROVIDERS: ADMIT Internal Medicine; ATTEND Internal Medicine